=== PATIENT | female | born 1960 | race Caucasian/White ===

== ENCOUNTER 2017-12-27 17:47 | Observation (INO) ==
[2017-12-27 17:53] LABS: ABG Base Excess 0 mEq/L (-2 to 3); ABG HCO3 26 mEq/L (21-27); ABG Oxygen Saturation 94 % (95-98); ABG PCO2 46 mmHg (35-45); ABG PH 7.36 pH Units (7.32-7.45); ABG PO2 75 mmHg (85-104); ABG TCO2 28 mEq/L (20-26)
--- NOTE | 2017-12-27 17:56 | Emergency Department Note ---
Disposition Clinical Impression: Altered mental status Qualifiers: Altered mental status type: unspecified Qualified Code(s): R41.82 - Altered mental status, unspecified Disposition: Still a Patient Condition: Good Forms: ED Satisfaction Letter General Adult HPI - General Stated complaint: XIMENA Time Seen by Provider: 12/27/17 17:51 Source: family Mode of arrival: private vehicle Limitations: altered mental status Nursing Notes Reviewed: Yes Vital Signs Reviewed: Yes - History of Present Illness HPI Narrative: Patient is a 57-year-old female with a past psychiatric history who has been off her medication for several years and recently restarted some medication approximately 2 days ago under the care of "Rakesh Julian". Patient's states that patient has anxiety, depression, bipolar, and psychosis. Patient's states that he thinks she is taking lorazepam, Wellbutrin, Depakote, Seroquel. Patient's also states that 2 days ago she tried to commit suicide by taking a bunch of pills, he does not know what pills she took, and she woke up from a nap and was angry that her attempt did not succeed. It was at this point that they went to see the new doctor. states that he does not think she has any other health problems, has had 3 C-sections a number of years ago, has been complaining of a headache in the front of her head for "a while", as well as some wheezing although he attributes that to their smoking habit. Patient denies alcohol or illicit drugs. Constitutional: Denies: fever, chills Cardiovascular: Denies: chest pain Respiratory: Reports: dyspnea Gastrointestinal: Reports: abdominal pain. Denies: nausea, vomiting, diarrhea, constipation Integumentary: Reports: rash (12 cm area around umbilicus that is slightly discolored and she states that it hurts) Neurological: Reports: headache (frontal, present for a while now) Psychiatric: Reports: anxiety, depression Physical Exam Exam was performed after pt returned from CT scan when she was A&Ox3 - General Limitations: no limitations General appearance: alert, in no apparent distress - Head Head exam: atraumatic, normocephalic - Eye Eye exam: Present: normal appearance, PERRL, EOMI. Absent: scleral icterus, conjunctival injection - ENT ENT exam: normal exam, normal oropharynx, mucous membranes moist - Neck Neck exam: Present: normal inspection, full ROM - Chest Chest inspection: Present: normal inspection, symmetric chest wall rise - Respiratory Respiratory exam: Present: wheezes (expiratory wheezes) - Cardiovascular Cardiovascular exam: Present: regular rate, normal rhythm - Abdominal Exam Abdominal exam: Present: soft, Non-Tender - Back Exam Back exam: Present: normal inspection, full ROM. Absent: tenderness - Neurological Exam Neurological exam: Present: alert, oriented X3, CN II-XII intact - Psychiatric Psychiatric exam: Present: normal affect, normal mood - Skin Skin exam: Present: warm, dry, intact Course Course Narrative: Pt presented unable to answer questions, states that she was "flopping around in the car unable to breath". Additionally, states that patient tried to commit suicide a few days earlier by taking "a bunch of pills." A full workup to include tox scren, salicylate, acetaminophen, CBC, CMP, ammonia, EKG, Head CT will be performed. - Reevaluation(s) Reevaluation #1: Patient returned from CT scan and is now a and O 3, stating that she feels much better, stating that she is ready to go home. When asked if she took her regular medication today she says that she must have because she feels okay. Initially when asked about what happened 2 days ago where she took "a bunch of pills" she states that she mostly just took ibuprofen, although she thinks she only took 2 of them. In the room right now patient denies suicidal or homicidal ideations, and denies auditory or visual hallucinations. But she seems guarded in her responses. Will consult 1A for evaluation. Time: 18:51 Vital Signs Temperature 97.8 F 12/27/17 18:09 Pulse Rate 85 12/27/17 18:09 Respiratory Rate 20 12/27/17 18:09 Blood Pressure 167/96 12/27/17 18:09 O2 Sat by Pulse Oximetry 97 12/27/17 18:09 Temperature 97.8 F 12/27/17 18:09 Pulse Rate 85 12/27/17 18:09 Respiratory Rate 20 12/27/17 18:09 Blood Pressure 167/96 12/27/17 18:09 O2 Sat by Pulse Oximetry 97 12/27/17 18:09 Oxygen Delivery Oxygen Delivery Room Air Medical Decision Making - [facility] Narrative Medical decision making narrative: Pt is still a patient and will be signed out to the night doctor - please see detailed disposition in Dr. Arguelles/Dr. Dela Cruz's note. - Medical Records Medical records reviewed: Yes I reviewed the patient's medical records. - Lab Data Lab results reviewed: Yes I reviewed the patient's lab results. Result diagrams: 12/27/17 17:52 12/27/17 17:52 Lab Results 12/27/17 12/27/17 12/27/17 Range/Units 17:49 17:52 17:52 WBC 18.7 H (4.3-11.1) K/mcL RBC 4.81 (3.82-4.97) M/mcL Hgb 15.0 (11.5-15.4) g/dL Hct 45.5 H (35.3-44.9) % MCV 94.6 (83.0-100.0) fL MCH 31.2 (28.0-33.3) pg MCHC 33.0 (31.6-35.5) g/dL RDW 14.2 (11.5-14.5) % Plt Count 383 (140-400) K/mcL MPV 10.8 (9.4-12.4) fL Immature Gran % 1.1 (0-4) % Seg Neutrophils % 69.0 % Lymphocytes % 22.9 % Monocytes % 4.5 % Eosinophils % 2.0 % Basophils % 0.5 % Neutrophils # 12.9 H (1.6-8.9) K/mcL Lymphocytes # 4.3 (0.6-4.6) K/mcL Monocytes # 0.8 (0.0-1.3) K/mcL Eosinophils # 0.4 (0.0-0.6) K/mcL Basophils # 0.1 (0.0-0.2) K/mcL PT (9.4-12.1) Seconds INR APTT (26.0-36.0) Seconds Sample Site R Brach ABG pH 7.36 (7.32-7.45) pH Units ABG pCO2 46 H (35-45) mmHg ABG pO2 75 L (85-104) mmHg ABG HCO3 26 (21-27) mEq/L ABG Total CO2 28 H (20-26) mEq/L ABG O2 Saturation 94 L (95-98) % ABG Base Excess 0 (-2 to 3) mEq/L Petey Test N/A O2 Delivery Device Room Air Inspired O2 21.0 (1-15=lpm [id number]=%) Sodium (136-145) mEq/L Potassium (3.5-5.1) mEq/L Chloride (98-107) mEq/L Carbon Dioxide (23-29) mEq/L BUN (6-20) mg/dL Creatinine (0.60-1.20) mg/dL Est GFR ( Amer) (> 60) Est GFR (Non-Af Amer) (> 60) BUN/Creatinine Ratio (6-26) Glucose (70-105) mg/dL Calculated Osmolality (280-300) Calcium (8.6-10.3) mg/dL Total Bilirubin (0.3-1.0) mg/dL Direct Bilirubin (0.0-0.2) mg/dL Indirect Bilirubin (0.0-1.2) mg/dL AST (13-39) Units/L ALT (7-52) Units/L Alkaline Phosphatase (34-104) Units/L Ammonia 33 (16-53) mcmol/L Troponin I (< 0.04) ng/mL Serum Total Protein (6.4-8.9) g/dL Albumin (3.5-5.7) g/dL Globulin (2.4-3.5) g/dL Albumin/Globulin Ratio (1.1-2.2) TSH (0.340-5.600) mcIU/mL Salicylates (15.0-30.0) mg/dL Acetaminophen (10-20) mcg/mL Ethyl Alcohol (Less than 10) mg/dL 12/27/17 12/27/17 Range/Units 17:52 17:52 WBC (4.3-11.1) K/mcL RBC (3.82-4.97) M/mcL Hgb (11.5-15.4) g/dL Hct (35.3-44.9) % MCV (83.0-100.0) fL MCH (28.0-33.3) pg MCHC (31.6-35.5) g/dL RDW (11.5-14.5) % Plt Count (140-400) K/mcL MPV (9.4-12.4) fL Immature Gran % (0-4) % Seg Neutrophils % % Lymphocytes % % Monocytes % % Eosinophils % % Basophils % % Neutrophils # (1.6-8.9) K/mcL Lymphocytes # (0.6-4.6) K/mcL Monocytes # (0.0-1.3) K/mcL Eosinophils # (0.0-0.6) K/mcL Basophils # (0.0-0.2) K/mcL PT 10.3 (9.4-12.1) Seconds INR 0.9 APTT 33.9 (26.0-36.0) Seconds Sample Site ABG pH (7.32-7.45) pH Units ABG pCO2 (35-45) mmHg ABG pO2 (85-104) mmHg ABG HCO3 (21-27) mEq/L ABG Total CO2 (20-26) mEq/L ABG O2 Saturation (95-98) % ABG Base Excess (-2 to 3) mEq/L Petey Test O2 Delivery Device Inspired O2 (1-15=lpm [id number]=%) Sodium 140 (136-145) mEq/L Potassium 4.3 (3.5-5.1) mEq/L Chloride 106 (98-107) mEq/L Carbon Dioxide 26 (23-29) mEq/L BUN 22 H (6-20) mg/dL Creatinine 1.12 (0.60-1.20) mg/dL Est GFR ( Amer) > 60 (> 60) Est GFR (Non-Af Amer) 50 L (> 60) BUN/Creatinine Ratio 20 (6-26) Glucose 125 H (70-105) mg/dL Calculated Osmolality 295 (280-300) Calcium 9.4 (8.6-10.3) mg/dL Total Bilirubin 0.3 (0.3-1.0) mg/dL Direct Bilirubin 0.0 (0.0-0.2) mg/dL Indirect Bilirubin 0.3 (0.0-1.2) mg/dL AST 25 (13-39) Units/L ALT 32 (7-52) Units/L Alkaline Phosphatase 193 H (34-104) Units/L Ammonia (16-53) mcmol/L Troponin I < 0.03 (< 0.04) ng/mL Serum Total Protein 7.2 (6.4-8.9) g/dL Albumin 3.8 (3.5-5.7) g/dL Globulin 3.4 (2.4-3.5) g/dL Albumin/Globulin Ratio 1.1 (1.1-2.2) TSH 1.663 (0.340-5.600) mcIU/mL Salicylates < 2.5 L (15.0-30.0) mg/dL Acetaminophen < 10 L (10-20) mcg/mL Ethyl Alcohol < 10 (Less than 10) mg/dL - EKG Data EKG #1 EKG attestation: Yes I reviewed and interpreted this EKG. EKG results narrative: HR 85, Rhythm sinus, axis normal. [place] 180, QRS 88, QT 378. No evidence of ST elevation or depression.
[2017-12-27 18:05] LABS: Basophils # 0.1 K/mcL (0.0-0.2); Basophils % 0.5 %; Eosinophils # 0.4 K/mcL (0.0-0.6); Hematocrit 45.5 % (35.3-44.9); Immature Granulocytes % 1.1 % (0-4); Lymphocytes # 4.3 K/mcL (0.6-4.6); Lymphocytes % 22.9 %; Mean Corpuscular Hemoglobin 31.2 pg (28.0-33.3); Mean Corpuscular Volume 94.6 fL (83.0-100.0); Mean Platelet Volume 10.8 fL (9.4-12.4); Monocytes # 0.8 K/mcL (0.0-1.3); Monocytes % 4.5 %; Neutrophils # 12.9 K/mcL (1.6-8.9); Platelet Count 383 K/mcL (140-400); Red Blood Count 4.81 M/mcL (3.82-4.97); Red Cell Distribution Width 14.2 % (11.5-14.5)
[2017-12-27 18:17] LABS: INR 0.9; Prothrombin Time 10.3 Seconds (9.4-12.1)
[2017-12-27 18:19] LABS: Activated Partial Thrombo Time 33.9 Seconds (26.0-36.0)
[2017-12-27 18:23] LABS: Alanine Aminotransferase 32 Units/L (7-52); Albumin 3.8 g/dL (3.5-5.7); Albumin/Globulin Ratio 1.1 (1.1-2.2); Alkaline Phosphatase 193 Units/L (34-104); Aspartate Amino Transferase 25 Units/L (13-39); BUN/Creatinine Ratio 20 (6-26); Bilirubin,Indirect 0.3 mg/dL (0.0-1.2); Bilirubin,Total 0.3 mg/dL (0.3-1.0); Blood Urea Nitrogen 22 mg/dL (6-20); Calcium 9.4 mg/dL (8.6-10.3); Carbon Dioxide 26 mEq/L (23-29); Chloride 106 mEq/L (98-107); Ethanol < 10 mg/dL (Less than 10); Globulin 3.4 g/dL (2.4-3.5); Glucose 125 mg/dL (70-105); Osmolality,Calculated 295 (280-300); Potassium 4.3 mEq/L (3.5-5.1); Sodium 140 mEq/L (136-145); Total Protein 7.2 g/dL (6.4-8.9); Troponin I < 0.03 ng/mL (< 0.04); eGFR For Non-African Americans 50 (> 60)
--- NOTE | 2017-12-27 18:28 | Emergency Department Note ---
Disposition Clinical Impression: Altered mental status Qualifiers: Altered mental status type: unspecified Qualified Code(s): R41.82 - Altered mental status, unspecified Disposition: Still a Patient Condition: Good General Adult HPI - General Chief complaint: ED Altered Mental Status Stated complaint: XIMENA Time Seen by Provider: 12/27/17 17:51 Source: family Mode of arrival: private vehicle Limitations: altered mental status - History of Present Illness Pain Scale: 5 - Related Data Home Medications Medication Instructions Recorded Confirmed Baclofen 20 mg PO Q6H 12/29/17 12/29/17 Divalproex Sodium [Depakote] 125 mg PO BID 12/29/17 12/29/17 Indomethacin 75 mg PO BID 12/29/17 12/29/17 LORazepam [Lorazepam] 2 mg PO TID PRN 12/29/17 12/29/17 Metoclopramide [Reglan] 10 mg PO QIDAC 12/29/17 12/29/17 RX: BuPROPion SR (12 HR) 100 mg PO BID 12/29/17 12/29/17 [Wellbutrin SR] RX: Diclofenac Potassium 50 mg PO TID 12/29/17 12/29/17 RX: Nitroglycerin [Nitrostat] 0.4 mg SL PRN PRN 12/29/17 12/29/17 RX: Omeprazole [PriLOSEC] 40 mg PO DAILY 12/29/17 12/29/17 RX: Quetiapine Fumarate [Seroquel] 25 mg PO TID 12/29/17 12/29/17 Allergies Allergy/AdvReac Type Severity Reaction Status Date / Time No Known Allergies Allergy Verified 12/29/17 09:31 Constitutional: Denies: fever, chills Cardiovascular: Denies: chest pain Respiratory: Reports: dyspnea Gastrointestinal: Reports: abdominal pain. Denies: nausea, vomiting, diarrhea, constipation Integumentary: Reports: rash (12 cm area around umbilicus that is slightly discolored and she states that it hurts) Neurological: Reports: headache (frontal, present for a while now) Psychiatric: Reports: anxiety, depression Past Medical History - Past Medical History Medical history: Reports: hypertension, seizures Psychiatric history: Reports: anxiety, bipolar, depression, schizophrenia - Social History Smoking Status: Current every day smoker Alcohol use: Reports: none Drug use: Reports: none Physical Exam - General Limitations: altered mental status General appearance: lethargic Course Vital Signs Temperature 97.8 F 12/27/17 18:09 Pulse Rate 85 12/27/17 18:09 Respiratory Rate 20 12/27/17 18:09 Blood Pressure 167/96 12/27/17 18:09 O2 Sat by Pulse Oximetry 97 12/27/17 18:09 Temperature 97.5 F L 12/28/17 09:00 Pulse Rate 73 12/28/17 09:00 Respiratory Rate 22 12/28/17 09:00 Blood Pressure 184/113 12/28/17 09:00 O2 Sat by Pulse Oximetry 96 12/28/17 09:00 Oxygen Delivery Oxygen Delivery Room Air Medical Decision Making - Lab Data Result diagrams: 12/29/17 05:55 12/29/17 05:55 Lab Results 12/27/17 12/27/17 12/27/17 Range/Units 17:49 17:52 17:52 WBC 18.7 H (4.3-11.1) K/mcL RBC 4.81 (3.82-4.97) M/mcL Hgb 15.0 (11.5-15.4) g/dL Hct 45.5 H (35.3-44.9) % MCV 94.6 (83.0-100.0) fL MCH 31.2 (28.0-33.3) pg MCHC 33.0 (31.6-35.5) g/dL RDW 14.2 (11.5-14.5) % Plt Count 383 (140-400) K/mcL MPV 10.8 (9.4-12.4) fL Immature Gran % 1.1 (0-4) % Seg Neutrophils % 69.0 % Lymphocytes % 22.9 % Monocytes % 4.5 % Eosinophils % 2.0 % Basophils % 0.5 % Neutrophils # 12.9 H (1.6-8.9) K/mcL Lymphocytes # 4.3 (0.6-4.6) K/mcL Monocytes # 0.8 (0.0-1.3) K/mcL Eosinophils # 0.4 (0.0-0.6) K/mcL Basophils # 0.1 (0.0-0.2) K/mcL PT (9.4-12.1) Seconds INR APTT (26.0-36.0) Seconds Sample Site R Brach ABG pH 7.36 (7.32-7.45) pH Units ABG pCO2 46 H (35-45) mmHg ABG pO2 75 L (85-104) mmHg ABG HCO3 26 (21-27) mEq/L ABG Total CO2 28 H (20-26) mEq/L ABG O2 Saturation 94 L (95-98) % ABG Base Excess 0 (-2 to 3) mEq/L Petey Test N/A O2 Delivery Device Room Air Inspired O2 21.0 (1-15=lpm [id number]=%) Sodium (136-145) mEq/L Potassium (3.5-5.1) mEq/L Chloride (98-107) mEq/L Carbon Dioxide (23-29) mEq/L BUN (6-20) mg/dL Creatinine (0.60-1.20) mg/dL Est GFR ( Amer) (> 60) Est GFR (Non-Af Amer) (> 60) BUN/Creatinine Ratio (6-26) Glucose (70-105) mg/dL Calculated Osmolality (280-300) Calcium (8.6-10.3) mg/dL Total Bilirubin (0.3-1.0) mg/dL Direct Bilirubin (0.0-0.2) mg/dL Indirect Bilirubin (0.0-1.2) mg/dL AST (13-39) Units/L ALT (7-52) Units/L Alkaline Phosphatase (34-104) Units/L Ammonia 33 (16-53) mcmol/L Troponin I (< 0.04) ng/mL Serum Total Protein (6.4-8.9) g/dL Albumin (3.5-5.7) g/dL Globulin (2.4-3.5) g/dL Albumin/Globulin Ratio (1.1-2.2) TSH (0.340-5.600) mcIU/mL Urine Color (Yellow) Urine Clarity (Clear) Urine pH (5.0-8.0) pH Units Ur Specific [place] (1.010-1.025) Urine Protein (Neg-Trace) mg/dL Urine Glucose (UA) (Normal) mg/dL Urine Ketones (Negative) mg/dL Urine Blood (Negative) Urine Nitrite (Negative) Urine Bilirubin (Negative) Urine Urobilinogen (Normal) mg/dL Ur Leukocyte Esterase (Negative) Ur Culture Indicated? (NO) Salicylates (15.0-30.0) mg/dL Urine Opiates Screen (Jplldw=247) ng/mL Acetaminophen (10-20) mcg/mL Ur Barbiturates Screen (Hcfzdv=782) ng/mL Ur Phencyclidine Scrn (Cutoff=25) ng/mL Ur Amphetamines Screen (Ucrdhx=6226) ng/mL U Benzodiazepines Scrn (Cmbmoc=485) ng/mL Urine Cocaine Screen (Cutoff= 300) ng/mL U Marijuana (THC) Screen (Cutoff = 50) ng/mL Ur Drug Screen Interp Ethyl Alcohol (Less than 10) mg/dL 12/27/17 12/27/17 12/27/17 Range/Units 17:52 17:52 19:35 WBC (4.3-11.1) K/mcL RBC (3.82-4.97) M/mcL Hgb (11.5-15.4) g/dL Hct (35.3-44.9) % MCV (83.0-100.0) fL MCH (28.0-33.3) pg MCHC (31.6-35.5) g/dL RDW (11.5-14.5) % Plt Count (140-400) K/mcL MPV (9.4-12.4) fL Immature Gran % (0-4) % Seg Neutrophils % % Lymphocytes % % Monocytes % % Eosinophils % % Basophils % % Neutrophils # (1.6-8.9) K/mcL Lymphocytes # (0.6-4.6) K/mcL Monocytes # (0.0-1.3) K/mcL Eosinophils # (0.0-0.6) K/mcL Basophils # (0.0-0.2) K/mcL PT 10.3 (9.4-12.1) Seconds INR 0.9 APTT 33.9 (26.0-36.0) Seconds Sample Site ABG pH (7.32-7.45) pH Units ABG pCO2 (35-45) mmHg ABG pO2 (85-104) mmHg ABG HCO3 (21-27) mEq/L ABG Total CO2 (20-26) mEq/L ABG O2 Saturation (95-98) % ABG Base Excess (-2 to 3) mEq/L Petey Test O2 Delivery Device Inspired O2 (1-15=lpm [id number]=%) Sodium 140 (136-145) mEq/L Potassium 4.3 (3.5-5.1) mEq/L Chloride 106 (98-107) mEq/L Carbon Dioxide 26 (23-29) mEq/L BUN 22 H (6-20) mg/dL Creatinine 1.12 (0.60-1.20) mg/dL Est GFR ( Amer) > 60 (> 60) Est GFR (Non-Af Amer) 50 L (> 60) BUN/Creatinine Ratio 20 (6-26) Glucose 125 H (70-105) mg/dL Calculated Osmolality 295 (280-300) Calcium 9.4 (8.6-10.3) mg/dL Total Bilirubin 0.3 (0.3-1.0) mg/dL Direct Bilirubin 0.0 (0.0-0.2) mg/dL Indirect Bilirubin 0.3 (0.0-1.2) mg/dL AST 25 (13-39) Units/L ALT 32 (7-52) Units/L Alkaline Phosphatase 193 H (34-104) Units/L Ammonia (16-53) mcmol/L Troponin I < 0.03 (< 0.04) ng/mL Serum Total Protein 7.2 (6.4-8.9) g/dL Albumin 3.8 (3.5-5.7) g/dL Globulin 3.4 (2.4-3.5) g/dL Albumin/Globulin Ratio 1.1 (1.1-2.2) TSH 1.663 (0.340-5.600) mcIU/mL Urine Color (Yellow) Urine Clarity (Clear) Urine pH (5.0-8.0) pH Units Ur Specific [place] (1.010-1.025) Urine Protein (Neg-Trace) mg/dL Urine Glucose (UA) (Normal) mg/dL Urine Ketones (Negative) mg/dL Urine Blood (Negative) Urine Nitrite (Negative) Urine Bilirubin (Negative) Urine Urobilinogen (Normal) mg/dL Ur Leukocyte Esterase (Negative) Ur Culture Indicated? (NO) Salicylates < 2.5 L (15.0-30.0) mg/dL Urine Opiates Screen Negative (Nwgfrj=602) ng/mL Acetaminophen < 10 L (10-20) mcg/mL Ur Barbiturates Screen Negative (Jjtvhb=824) ng/mL Ur Phencyclidine Scrn Negative (Cutoff=25) ng/mL Ur Amphetamines Screen Negative (Ijokyg=7450) ng/mL U Benzodiazepines Scrn Negative (Xkjzfs=207) ng/mL Urine Cocaine Screen Negative (Cutoff= 300) ng/mL U Marijuana (THC) Screen Negative (Cutoff = 50) ng/mL Ur Drug Screen Interp See Below Ethyl Alcohol < 10 (Less than 10) mg/dL 12/27/17 Range/Units 19:38 WBC (4.3-11.1) K/mcL RBC (3.82-4.97) M/mcL Hgb (11.5-15.4) g/dL Hct (35.3-44.9) % MCV (83.0-100.0) fL MCH (28.0-33.3) pg MCHC (31.6-35.5) g/dL RDW (11.5-14.5) % Plt Count (140-400) K/mcL MPV (9.4-12.4) fL Immature Gran % (0-4) % Seg Neutrophils % % Lymphocytes % % Monocytes % % Eosinophils % % Basophils % % Neutrophils # (1.6-8.9) K/mcL Lymphocytes # (0.6-4.6) K/mcL Monocytes # (0.0-1.3) K/mcL Eosinophils # (0.0-0.6) K/mcL Basophils # (0.0-0.2) K/mcL PT (9.4-12.1) Seconds INR APTT (26.0-36.0) Seconds Sample Site ABG pH (7.32-7.45) pH Units ABG pCO2 (35-45) mmHg ABG pO2 (85-104) mmHg ABG HCO3 (21-27) mEq/L ABG Total CO2 (20-26) mEq/L ABG O2 Saturation (95-98) % ABG Base Excess (-2 to 3) mEq/L Petey Test O2 Delivery Device Inspired O2 (1-15=lpm [id number]=%) Sodium (136-145) mEq/L Potassium (3.5-5.1) mEq/L Chloride (98-107) mEq/L Carbon Dioxide (23-29) mEq/L BUN (6-20) mg/dL Creatinine (0.60-1.20) mg/dL Est GFR ( Amer) (> 60) Est GFR (Non-Af Amer) (> 60) BUN/Creatinine Ratio (6-26) Glucose (70-105) mg/dL Calculated Osmolality (280-300) Calcium (8.6-10.3) mg/dL Total Bilirubin (0.3-1.0) mg/dL Direct Bilirubin (0.0-0.2) mg/dL Indirect Bilirubin (0.0-1.2) mg/dL AST (13-39) Units/L ALT (7-52) Units/L Alkaline Phosphatase (34-104) Units/L Ammonia (16-53) mcmol/L Troponin I (< 0.04) ng/mL Serum Total Protein (6.4-8.9) g/dL Albumin (3.5-5.7) g/dL Globulin (2.4-3.5) g/dL Albumin/Globulin Ratio (1.1-2.2) TSH (0.340-5.600) mcIU/mL Urine Color Yellow (Yellow) Urine Clarity Clear (Clear) Urine pH 6.0 (5.0-8.0) pH Units Ur Specific [place] 1.015 (1.010-1.025) Urine Protein Negative (Neg-Trace) mg/dL Urine Glucose (UA) Normal (Normal) mg/dL Urine Ketones Negative (Negative) mg/dL Urine Blood Negative (Negative) Urine Nitrite Negative (Negative) Urine Bilirubin Negative (Negative) Urine Urobilinogen Normal (Normal) mg/dL Ur Leukocyte Esterase Negative (Negative) Ur Culture Indicated? NO (NO) Salicylates (15.0-30.0) mg/dL Urine Opiates Screen (Ugcwjs=319) ng/mL Acetaminophen (10-20) mcg/mL Ur Barbiturates Screen (Szgzny=283) ng/mL Ur Phencyclidine Scrn (Cutoff=25) ng/mL Ur Amphetamines Screen (Fncwhx=8624) ng/mL U Benzodiazepines Scrn (Dyjsjs=403) ng/mL Urine Cocaine Screen (Cutoff= 300) ng/mL U Marijuana (THC) Screen (Cutoff = 50) ng/mL Ur Drug Screen Interp Ethyl Alcohol (Less than 10) mg/dL Attestation Statement - Attestation Attestation: I examined this patient and my medical decision-making was reviewed with the Resident Physician. I agree with the documented findings, disposition and robert tment plan as described except to the extent set forth below. Patient presents to the emergency Department with altered mental status. Staff states that she was poorly responsive in the passenger seat of the car. She was able to assist him getting out of her car and then collapsed to the ground. On arrival in the room patient is laying in the bed with her eyes closed. Her vitals are stable with a heart rate in 80s, and oxygen saturation 99% on room air. Breathing 50 times a minute. Her lungs are clear. The pupils are reactive when I open her eyes. Plan. We did use an ammonia capsule the patient is now awake and alert. States she just cannot think. Altered mental status workup. Patient admitted to a suicide attempt 2 days ago. Steward slip and 1A evaluation. Signed out to shift superintendent Chest X-Ray 12/27/17 17:53 IMPRESSION: No acute findings. D/ / 12/27/2017 18:47:54 Yasir Reyes MD / inocente Interpreting Provider: Yasir Reyes MD Head CT 12/27/17 17:53 IMPRESSION: Negative CT brain with no acute intracranial abnormality. D/ / Ame Wade MD / Ame Wade MD Interpreting Provider: Ame Wade MD
[2017-12-27 18:36] LABS: Thyroid Stimulating Hormone 1.663 mcIU/mL (0.340-5.600)
[2017-12-27 18:54] LABS: Acetaminophen < 10 mcg/mL (10-20); Salicylate < 2.5 mg/dL (15.0-30.0)
[2017-12-27 19:47] LABS: Bilirubin,Urine Negative (Negative); Blood,Urine Negative (Negative); Clarity,Urine Clear (Clear); Color,Urine Yellow (Yellow); Glucose,Urine (UA) Normal (Normal); Ketones,Urine Negative (Negative); Leukocyte Esterase,Urine Negative (Negative); Nitrite,Urine Negative (Negative); Protein,Urine Negative (Neg-Trace); Specific Gravity,Urine 1.015 (1.010-1.025); Urobilinogen,Urine Normal (Normal)
[2017-12-27 19:56] LABS: Amphetamine Screen,Urine Negative ng/mL (Cutoff=1000); Barbiturate Screen,Urine Negative ng/mL (Cutoff=200); Benzodiazepines Screen,Urine Negative ng/mL (Cutoff=200); Cannabinoid Screen,Urine Negative ng/mL (Cutoff = 50); Cocaine Screen,Urine Negative ng/mL (Cutoff= 300); Opiate Screen,Urine Negative ng/mL (Cutoff=300); Phencyclidine Screen,Urine Negative ng/mL (Cutoff=25)
--- NOTE | 2017-12-27 20:42 | Emergency Department Note ---
Disposition Clinical Impression: Altered mental status Qualifiers: Altered mental status type: unspecified Qualified Code(s): R41.82 - Altered mental status, unspecified Disposition: Still a Patient Condition: Good Referrals: NONE,PCP [Primary Care Provider] - Forms: ED Satisfaction Letter General Adult HPI - General Chief complaint: ED Altered Mental Status Stated complaint: XIMENA Time Seen by Provider: 12/27/17 17:51 Source: family Mode of arrival: private vehicle Limitations: no limitations - History of Present Illness Pain Scale: 5 Constitutional: Denies: fever, chills Cardiovascular: Denies: chest pain Respiratory: Reports: dyspnea Gastrointestinal: Reports: abdominal pain. Denies: nausea, vomiting, diarrhea, constipation Integumentary: Reports: rash (12 cm area around umbilicus that is slightly discolored and she states that it hurts) Neurological: Reports: headache (frontal, present for a while now) Psychiatric: Reports: anxiety, depression Past Medical History - Past Medical History Medical history: Reports: hypertension, seizures Psychiatric history: Reports: anxiety, bipolar, depression, schizophrenia - Social History Smoking Status: Current every day smoker Alcohol use: Reports: none Drug use: Reports: none Physical Exam - General Limitations: no limitations General appearance: alert, in no apparent distress Course Vital Signs Temperature 97.8 F 12/27/17 18:09 Pulse Rate 85 12/27/17 18:09 Respiratory Rate 20 12/27/17 18:09 Blood Pressure 167/96 12/27/17 18:09 O2 Sat by Pulse Oximetry 97 12/27/17 18:09 Temperature 97.8 F 12/27/17 18:09 Pulse Rate 85 12/27/17 18:09 Respiratory Rate 20 12/27/17 18:09 Blood Pressure 167/96 12/27/17 18:09 O2 Sat by Pulse Oximetry 97 12/27/17 18:09 Oxygen Delivery Oxygen Delivery Room Air Medical Decision Making - Lab Data Result diagrams: 12/27/17 17:52 12/27/17 17:52 Lab Results 12/27/17 12/27/17 12/27/17 Range/Units 17:49 17:52 17:52 WBC 18.7 H (4.3-11.1) K/mcL RBC 4.81 (3.82-4.97) M/mcL Hgb 15.0 (11.5-15.4) g/dL Hct 45.5 H (35.3-44.9) % MCV 94.6 (83.0-100.0) fL MCH 31.2 (28.0-33.3) pg MCHC 33.0 (31.6-35.5) g/dL RDW 14.2 (11.5-14.5) % Plt Count 383 (140-400) K/mcL MPV 10.8 (9.4-12.4) fL Immature Gran % 1.1 (0-4) % Seg Neutrophils % 69.0 % Lymphocytes % 22.9 % Monocytes % 4.5 % Eosinophils % 2.0 % Basophils % 0.5 % Neutrophils # 12.9 H (1.6-8.9) K/mcL Lymphocytes # 4.3 (0.6-4.6) K/mcL Monocytes # 0.8 (0.0-1.3) K/mcL Eosinophils # 0.4 (0.0-0.6) K/mcL Basophils # 0.1 (0.0-0.2) K/mcL PT (9.4-12.1) Seconds INR APTT (26.0-36.0) Seconds Sample Site R Brach ABG pH 7.36 (7.32-7.45) pH Units ABG pCO2 46 H (35-45) mmHg ABG pO2 75 L (85-104) mmHg ABG HCO3 26 (21-27) mEq/L ABG Total CO2 28 H (20-26) mEq/L ABG O2 Saturation 94 L (95-98) % ABG Base Excess 0 (-2 to 3) mEq/L Petey Test N/A O2 Delivery Device Room Air Inspired O2 21.0 (1-15=lpm [id number]=%) Sodium (136-145) mEq/L Potassium (3.5-5.1) mEq/L Chloride (98-107) mEq/L Carbon Dioxide (23-29) mEq/L BUN (6-20) mg/dL Creatinine (0.60-1.20) mg/dL Est GFR ( Amer) (> 60) Est GFR (Non-Af Amer) (> 60) BUN/Creatinine Ratio (6-26) Glucose (70-105) mg/dL Calculated Osmolality (280-300) Calcium (8.6-10.3) mg/dL Total Bilirubin (0.3-1.0) mg/dL Direct Bilirubin (0.0-0.2) mg/dL Indirect Bilirubin (0.0-1.2) mg/dL AST (13-39) Units/L ALT (7-52) Units/L Alkaline Phosphatase (34-104) Units/L Ammonia 33 (16-53) mcmol/L Troponin I (< 0.04) ng/mL Serum Total Protein (6.4-8.9) g/dL Albumin (3.5-5.7) g/dL Globulin (2.4-3.5) g/dL Albumin/Globulin Ratio (1.1-2.2) TSH (0.340-5.600) mcIU/mL Urine Color (Yellow) Urine Clarity (Clear) Urine pH (5.0-8.0) pH Units Ur Specific [place] (1.010-1.025) Urine Protein (Neg-Trace) mg/dL Urine Glucose (UA) (Normal) mg/dL Urine Ketones (Negative) mg/dL Urine Blood (Negative) Urine Nitrite (Negative) Urine Bilirubin (Negative) Urine Urobilinogen (Normal) mg/dL Ur Leukocyte Esterase (Negative) Ur Culture Indicated? (NO) Salicylates (15.0-30.0) mg/dL Acetaminophen (10-20) mcg/mL Ur Drug Screen Interp Ethyl Alcohol (Less than 10) mg/dL 12/27/17 12/27/17 12/27/17 Range/Units 17:52 17:52 19:35 WBC (4.3-11.1) K/mcL RBC (3.82-4.97) M/mcL Hgb (11.5-15.4) g/dL Hct (35.3-44.9) % MCV (83.0-100.0) fL MCH (28.0-33.3) pg MCHC (31.6-35.5) g/dL RDW (11.5-14.5) % Plt Count (140-400) K/mcL MPV (9.4-12.4) fL Immature Gran % (0-4) % Seg Neutrophils % % Lymphocytes % % Monocytes % % Eosinophils % % Basophils % % Neutrophils # (1.6-8.9) K/mcL Lymphocytes # (0.6-4.6) K/mcL Monocytes # (0.0-1.3) K/mcL Eosinophils # (0.0-0.6) K/mcL Basophils # (0.0-0.2) K/mcL PT 10.3 (9.4-12.1) Seconds INR 0.9 APTT 33.9 (26.0-36.0) Seconds Sample Site ABG pH (7.32-7.45) pH Units ABG pCO2 (35-45) mmHg ABG pO2 (85-104) mmHg ABG HCO3 (21-27) mEq/L ABG Total CO2 (20-26) mEq/L ABG O2 Saturation (95-98) % ABG Base Excess (-2 to 3) mEq/L Petey Test O2 Delivery Device Inspired O2 (1-15=lpm [id number]=%) Sodium 140 (136-145) mEq/L Potassium 4.3 (3.5-5.1) mEq/L Chloride 106 (98-107) mEq/L Carbon Dioxide 26 (23-29) mEq/L BUN 22 H (6-20) mg/dL Creatinine 1.12 (0.60-1.20) mg/dL Est GFR ( Amer) > 60 (> 60) Est GFR (Non-Af Amer) 50 L (> 60) BUN/Creatinine Ratio 20 (6-26) Glucose 125 H (70-105) mg/dL Calculated Osmolality 295 (280-300) Calcium 9.4 (8.6-10.3) mg/dL Total Bilirubin 0.3 (0.3-1.0) mg/dL Direct Bilirubin 0.0 (0.0-0.2) mg/dL Indirect Bilirubin 0.3 (0.0-1.2) mg/dL AST 25 (13-39) Units/L ALT 32 (7-52) Units/L Alkaline Phosphatase 193 H (34-104) Units/L Ammonia (16-53) mcmol/L Troponin I < 0.03 (< 0.04) ng/mL Serum Total Protein 7.2 (6.4-8.9) g/dL Albumin 3.8 (3.5-5.7) g/dL Globulin 3.4 (2.4-3.5) g/dL Albumin/Globulin Ratio 1.1 (1.1-2.2) TSH 1.663 (0.340-5.600) mcIU/mL Urine Color (Yellow) Urine Clarity (Clear) Urine pH (5.0-8.0) pH Units Ur Specific [place] (1.010-1.025) Urine Protein (Neg-Trace) mg/dL Urine Glucose (UA) (Normal) mg/dL Urine Ketones (Negative) mg/dL Urine Blood (Negative) Urine Nitrite (Negative) Urine Bilirubin (Negative) Urine Urobilinogen (Normal) mg/dL Ur Leukocyte Esterase (Negative) Ur Culture Indicated? (NO) Salicylates < 2.5 L (15.0-30.0) mg/dL Acetaminophen < 10 L (10-20) mcg/mL Ur Drug Screen Interp See Below Ethyl Alcohol < 10 (Less than 10) mg/dL 12/27/17 Range/Units 19:38 WBC (4.3-11.1) K/mcL RBC (3.82-4.97) M/mcL Hgb (11.5-15.4) g/dL Hct (35.3-44.9) % MCV (83.0-100.0) fL MCH (28.0-33.3) pg MCHC (31.6-35.5) g/dL RDW (11.5-14.5) % Plt Count (140-400) K/mcL MPV (9.4-12.4) fL Immature Gran % (0-4) % Seg Neutrophils % % Lymphocytes % % Monocytes % % Eosinophils % % Basophils % % Neutrophils # (1.6-8.9) K/mcL Lymphocytes # (0.6-4.6) K/mcL Monocytes # (0.0-1.3) K/mcL Eosinophils # (0.0-0.6) K/mcL Basophils # (0.0-0.2) K/mcL PT (9.4-12.1) Seconds INR APTT (26.0-36.0) Seconds Sample Site ABG pH (7.32-7.45) pH Units ABG pCO2 (35-45) mmHg ABG pO2 (85-104) mmHg ABG HCO3 (21-27) mEq/L ABG Total CO2 (20-26) mEq/L ABG O2 Saturation (95-98) % ABG Base Excess (-2 to 3) mEq/L Petey Test O2 Delivery Device Inspired O2 (1-15=lpm [id number]=%) Sodium (136-145) mEq/L Potassium (3.5-5.1) mEq/L Chloride (98-107) mEq/L Carbon Dioxide (23-29) mEq/L BUN (6-20) mg/dL Creatinine (0.60-1.20) mg/dL Est GFR ( Amer) (> 60) Est GFR (Non-Af Amer) (> 60) BUN/Creatinine Ratio (6-26) Glucose (70-105) mg/dL Calculated Osmolality (280-300) Calcium (8.6-10.3) mg/dL Total Bilirubin (0.3-1.0) mg/dL Direct Bilirubin (0.0-0.2) mg/dL Indirect Bilirubin (0.0-1.2) mg/dL AST (13-39) Units/L ALT (7-52) Units/L Alkaline Phosphatase (34-104) Units/L Ammonia (16-53) mcmol/L Troponin I (< 0.04) ng/mL Serum Total Protein (6.4-8.9) g/dL Albumin (3.5-5.7) g/dL Globulin (2.4-3.5) g/dL Albumin/Globulin Ratio (1.1-2.2) TSH (0.340-5.600) mcIU/mL Urine Color Yellow (Yellow) Urine Clarity Clear (Clear) Urine pH 6.0 (5.0-8.0) pH Units Ur Specific [place] 1.015 (1.010-1.025) Urine Protein Negative (Neg-Trace) mg/dL Urine Glucose (UA) Normal (Normal) mg/dL Urine Ketones Negative (Negative) mg/dL Urine Blood Negative (Negative) Urine Nitrite Negative (Negative) Urine Bilirubin Negative (Negative) Urine Urobilinogen Normal (Normal) mg/dL Ur Leukocyte Esterase Negative (Negative) Ur Culture Indicated? NO (NO) Salicylates (15.0-30.0) mg/dL Acetaminophen (10-20) mcg/mL Ur Drug Screen Interp Ethyl Alcohol (Less than 10) mg/dL Attestation Statement - Attestation Attestation: Patient taken over at sign out from Dr. See.. Patient initially presented for altered mental status and dyspnea. She complained of not being able to breathe while she was in the car. They state that she started to become lightheaded and was about to pass out. The patient in the emergency department was not found to be in any significant respiratory distress. Her vital signs were normal. The patient had clear lung sounds. She did undergo evaluation for altered mental status. On my evaluation of the patient. She states that she is back to baseline. She would like to go home. She did tell the resident that she took prescription medications 2 days ago in attempts to commit suicide. She states she has been under an unusual amount of stress. They have not been able to afford food nor other prescription medications. Her daughter several years ago and she is having difficulty coping with this. The is at bedside. The did have a gun on him when presenting to the emergency department and was told by squad he needed to leave this in his car. He has been approachable and conversational without agitation or distress while in the e mergency department. His states that she would like to leave she does not want to be here, we are not here to help her, she would rather go home. She cannot guarantee her safety with home. Patient will undergo further evaluation by her mental health team. Patient will likely require admission.
[2017-12-27] MEDS ORDERED: Ziprasidone 20 MG CAPSULE PO STA (23:03)
[2017-12-27] MEDS ORDERED: Mag Hydrox/Al Hydrox/Simeth 30 ML UDC PO PRN (23:28)
[2017-12-27] MEDS ORDERED: *HR* LORazepam 2 MG/ML VIAL IM PRN (23:28)
[2017-12-27] MEDS ORDERED: MOM Conc 10 ML UD.LIQ PO PRN (23:28)
[2017-12-27] MEDS ORDERED: Haloperidol Lactate 5 MG/ML VIAL IM PRN (23:28)
[2017-12-27] MEDS ORDERED: Acetaminophen 325 MG TABLET PO PRN (23:28)
[2017-12-27] MEDS ORDERED: hydrOXYzine pamoate 25 MG CAPSULE PO PRN (23:28)
[2017-12-27] MEDS ORDERED: *HR* LORazepam 1 MG TABLET PO PRN (23:28)
[2017-12-28 09:53] VITALS: BP 184/113
--- NOTE | 2017-12-28 10:56 | Discharge Summary ---
Date of Encounter: 12/28/17 Time of Encounter: 10:30 History of Present Illness Chief complaint: Altered mental status Admitted From: Emergency Dept History of Present Illness: Ms. Patel is a 57 year old female presented to the emergency room with altered mental status and lethargic and unresponsive and workup was positive for leukocytosis and hypertension. Patient was reported medically clear by staff and transferred to 1 a after which time I found out that she has a history of epilepsy and I did not believe that she was medically stable and the hospitalist was contacted to clarify this situation and I am requesting to be reevaluated in the ER or admitted to medical floor for further evaluation since she is not medically stable. Past Med Surg Social Fam HX - Past Medical History Medical history: hypertension, seizures - Past Psychiatric History Psychiatric history: Reports: no psych history - Social History Smoking Status: Current every day smoker Alcohol use: none Drug use: none Medications - Discharge Medications Allergy/AdvReac Type Severity Reaction Status Date / Time No Known Allergies Allergy Verified 12/27/17 23:28 Review of Systems Psychiatric: Reports: confusion Exam - HEENT Head exam IM: Present: atraumatic Eye exam IM: Present: EOMI, normal appearance, PERRL ENT exam IM: Present: normal exam - Neurological Neurological exam: Present: CN II-XII intact - Respiratory Respiratory exam IM: Present: CTAB - GI/Abdominal GI/Abdominal exam IM: Present: normal bowel sounds, soft. Absent: tenderness - Extremities Extremities exam IM: Present: full ROM - Skin Skin exam IM: Present: dry, warm - Constitutional Vitals: Temp Pulse Resp BP Pulse Ox 97.5 F L 73 22 184/113 96 12/28/17 09:00 12/28/17 09:00 12/28/17 09:00 12/28/17 09:00 12/28/17 09:00 General appearance: age & developmentally appropriate, well-nourished, unkempt, disheveled, inappropriate, obese - Musculoskeletal Gait: normal Station: relaxed Strength & Tone: normal for patient - Psychiatric Patient Orientation: Yes Person, Yes Time, Yes Place Level of alertness: Alert Behavior: calm, cooperative, anxious Psychomotor activity: Normal Eye Contact: Maintains Eye Contact Mood Description: Euthymic/stable, Anxious Affect description: congruent with mood, euthymic, inappropriate to situation Speech Volume: Normal Speech pattern: spontaneous, disorganized, limited, impoverished Language & Vocabulary: consistent with education Thought Process: Linear, Goal Oriented, Disorganized, [place] Thought Content: No Suicidal ideation, No Homicidal ideation, No Overt delusions Perceptual Disturbances: No Auditory hallucinations, No Visual hallucinations Attention Span Ability: Capable of Focused Attention Memory Description: Grossly Intact Patient Reliability: Questionable Historian Fund of knowledge: Yes abstraction ability, Yes average, Yes aware of current events Intelligence Estimate: Average Judgment: Limited Insight: Partial Results - Drug Levels and Toxicology Drug Levels and Toxicology: Drug Levels and Toxicity 12/27/17 12/27/17 17:52 19:35 Urine Opiates Screen Negative Acetaminophen < 10 L Ur Barbiturates Screen Negative Ur Phencyclidine Scrn Negative Ur Amphetamines Screen Negative U Benzodiazepines Scrn Negative Urine Cocaine Screen Negative U Marijuana (THC) Screen Negative Ethyl Alcohol < 10 - Labs Labs: Laboratory Last Values WBC 18.7 K/mcL (4.3-11.1) H 12/27/17 17:52 RBC 4.81 M/mcL (3.82-4.97) 12/27/17 17:52 Hgb 15.0 g/dL (11.5-15.4) 12/27/17 17:52 Hct 45.5 % (35.3-44.9) H 12/27/17 17:52 MCV 94.6 fL (83.0-100.0) 12/27/17 17:52 MCH 31.2 pg (28.0-33.3) 12/27/17 17:52 MCHC 33.0 g/dL (31.6-35.5) 12/27/17 17:52 RDW 14.2 % (11.5-14.5) 12/27/17 17:52 Plt Count 383 K/mcL (140-400) 12/27/17 17:52 MPV 10.8 fL (9.4-12.4) 12/27/17 17:52 Immature Gran % 1.1 % (0-4) 12/27/17 17:52 Seg Neutrophils % 69.0 % 12/27/17 17:52 Lymphocytes % 22.9 % 12/27/17 17:52 Monocytes % 4.5 % 12/27/17 17:52 Eosinophils % 2.0 % 12/27/17 17:52 Basophils % 0.5 % 12/27/17 17:52 Neutrophils # 12.9 K/mcL (1.6-8.9) H 12/27/17 17:52 Lymphocytes # 4.3 K/mcL (0.6-4.6) 12/27/17 17:52 Monocytes # 0.8 K/mcL (0.0-1.3) 12/27/17 17:52 Eosinophils # 0.4 K/mcL (0.0-0.6) 12/27/17 17:52 Basophils # 0.1 K/mcL (0.0-0.2) 12/27/17 17:52 PT 10.3 Seconds (9.4-12.1) 12/27/17 17:52 INR 0.9 12/27/17 17:52 APTT 33.9 Seconds (26.0-36.0) 12/27/17 17:52 Sample Site R Brach 12/27/17 17:49 ABG pH 7.36 pH Units (7.32-7.45) 12/27/17 17:49 ABG pCO2 46 mmHg (35-45) H 12/27/17 17:49 ABG pO2 75 mmHg (85-104) L 12/27/17 17:49 ABG HCO3 26 mEq/L (21-27) 12/27/17 17:49 ABG Total CO2 28 mEq/L (20-26) H 12/27/17 17:49 ABG O2 Saturation 94 % (95-98) L 12/27/17 17:49 ABG Base Excess 0 mEq/L (-2 to 3) 12/27/17 17:49 Petey Test N/A 12/27/17 17:49 O2 Delivery Device Room Air 12/27/17 17:49 Inspired O2 21.0 (1-15=lpm [id number]=%) 12/27/17 17:49 Sodium 140 mEq/L (136-145) 12/27/17 17:52 Potassium 4.3 mEq/L (3.5-5.1) 12/27/17 17:52 Chloride 106 mEq/L (98-107) 12/27/17 17:52 Carbon Dioxide 26 mEq/L (23-29) 12/27/17 17:52 BUN 22 mg/dL (6-20) H 12/27/17 17:52 Creatinine 1.12 mg/dL (0.60-1.20) 12/27/17 17:52 Est GFR ( Amer) > 60 (> 60) 12/27/17 17:52 Est GFR (Non-Af Amer) 50 (> 60) L 12/27/17 17:52 BUN/Creatinine Ratio 20 (6-26) 12/27/17 17:52 Glucose 125 mg/dL (70-105) H 12/27/17 17:52 Calculated Osmolality 295 (280-300) 12/27/17 17:52 Calcium 9.4 mg/dL (8.6-10.3) 12/27/17 17:52 Total Bilirubin 0.3 mg/dL (0.3-1.0) 12/27/17 17:52 Direct Bilirubin 0.0 mg/dL (0.0-0.2) 12/27/17 17:52 Indirect Bilirubin 0.3 mg/dL (0.0-1.2) 12/27/17 17:52 AST 25 Units/L (13-39) 12/27/17 17:52 ALT 32 Units/L (7-52) 12/27/17 17:52 Alkaline Phosphatase 193 Units/L (34-104) H 12/27/17 17:52 Ammonia 33 mcmol/L (16-53) 12/27/17 17:52 Troponin I < 0.03 ng/mL (< 0.04) 12/27/17 17:52 Serum Total Protein 7.2 g/dL (6.4-8.9) 12/27/17 17:52 Albumin 3.8 g/dL (3.5-5.7) 12/27/17 17:52 Globulin 3.4 g/dL (2.4-3.5) 12/27/17 17:52 Albumin/Globulin Ratio 1.1 (1.1-2.2) 12/27/17 17:52 TSH 1.663 mcIU/mL (0.340-5.600) 12/27/17 17:52 Urine Color Yellow (Yellow) 12/27/17 19:38 Urine Clarity Clear (Clear) 12/27/17 19:38 Urine pH 6.0 pH Units (5.0-8.0) 12/27/17 19:38 Ur Specific [place] 1.015 (1.010-1.025) 12/27/17 19:38 Urine Protein Negative mg/dL (Neg-Trace) 12/27/17 19:38 Urine Glucose (UA) Normal mg/dL (Normal) 12/27/17 19:38 Urine Ketones Negative mg/dL (Negative) 12/27/17 19:38 Urine Blood Negative (Negative) 12/27/17 19:38 Urine Nitrite Negative (Negative) 12/27/17 19:38 Urine Bilirubin Negative (Negative) 12/27/17 19:38 Urine Urobilinogen Normal mg/dL (Normal) 12/27/17 19:38 Ur Leukocyte Esterase Negative (Negative) 12/27/17 19:38 Ur Culture Indicated? NO (NO) 12/27/17 19:38 Salicylates < 2.5 mg/dL (15.0-30.0) L 12/27/17 17:52 Urine Opiates Screen Negative ng/mL ([place]=595) 12/27/17 19:35 Acetaminophen < 10 mcg/mL (10-20) L 12/27/17 17:52 Ur Barbiturates Screen Negative ng/mL (Wcsvkb=315) 12/27/17 19:35 Ur Phencyclidine Scrn Negative ng/mL (Cutoff=25) 12/27/17 19:35 Ur Amphetamines Screen Negative ng/mL (Ubopxf=9888) 12/27/17 19:35 U Benzodiazepines Scrn Negative ng/mL (Nqzcsp=479) 12/27/17 19:35 Urine Cocaine Screen Negative ng/mL (Cutoff= 300) 12/27/17 19:35 U Marijuana (THC) Screen Negative ng/mL (Cutoff = 50) 12/27/17 19:35 Ur Drug Screen Interp See Below 12/27/17 19:35 Ethyl Alcohol < 10 mg/dL (Less than 10) 12/27/17 17:52 - Impressions Impressions Chest X-Ray 12/27/17 17:53 IMPRESSION: No acute findings. D/ / 12/27/2017 18:47:54 Yasir Reyes MD / inocente Interpreting Provider: Yasir Reyes MD Head CT 12/27/17 17:53 IMPRESSION: Negative CT brain with no acute intracranial abnormality. D/ / Ame Wade MD / Ame Wade MD Interpreting Provider: Ame Wade MD Diagnosis - Discharge Diagnosis (1) Altered mental status Status: Acute Qualifiers: Altered mental status type: unspecified Qualified Code(s): R41.82 - Altered mental status, unspecified Assessment and Plan - Patient/Caregiver Discharge Instructions Activity: resume usual activities as tolerated Diet: regular diet - Follow up Plan Follow up with: NONE,PCP [Primary Care Provider] - Functional capacity at discharge: independent ambulation Overall status at discharge: Stable Disposition: Admitted As Inpatient Provider Date of admission: 12/27/17 23:15 Primary care physician: PCP NONE Consults: 12/28/17 09:11 Consult to Hospitalist [CONS] Routine Consulting Provider: Hospitalist Josegeshanice Reason for Consult: Pt came through the ED unresponsive, with a WBC 18.7, B/P increasing since admission. Pt current manual B/P is 182/110, pt is a poor historian. Time Notified: 09:13 Call Completed: Yes Discharging clinician: Ritchie Arredondo Hospital Course Hospital course: Ms. Patel is a 57 year old female admitted from the ER for change in mental status. Patient medical clearance was not complete were adequate after admission found to have elevated white count and elevated blood pressure seen by the hospitalist who recommended moving patient to medical service for further evaluation and management. There was no criteria at this time for psychiatric admission or hospitalization using available information at this time. Patient will be discharged to the medical service for further medical evaluation and stabilization she is discharged in stable condition. - Time Spent with Patient Total time spent providing and/or coordinating discharge services: Less than 30 minutes Quality - Multiple Antipsychotics Patient discharged on 2 or more antipsychotic medications: No
--- NOTE | 2017-12-28 13:57 | Internal Med History&Physical ---
Date of Encounter: 12/28/17 Time of Encounter: 01:00 Internal Medicine - H&P: HPI History of present illness: Ms. Patel is a 57 year old female Past Med Surg Social Fam HX - Past Medical History Medical history: hypertension, seizures Psychiatric history: no psych history - Social History Smoking Status: Current every day smoker Alcohol use: none Drug use: none Internal Medicine - H&P: Meds Allergy/AdvReac Type Severity Reaction Status Date / Time No Known Allergies Allergy Verified 12/27/17 23:28 All Systems PM: A 10-system review of systems was performed and is negative for pertinent findings except as documented above in the HPI. - Constitutional Vitals: Temp Pulse Resp BP Pulse Ox 97.5 F L 73 22 184/113 96 12/28/17 09:00 12/28/17 09:00 12/28/17 09:00 12/28/17 09:00 12/28/17 09:00 Internal Med - H&P Results - Labs CBC & Chem 7: 12/27/17 17:52 12/27/17 17:52 Labs: Short CBC 12/27/17 Range/Units 17:52 WBC 18.7 H (4.3-11.1) K/mcL Hgb 15.0 (11.5-15.4) g/dL Hct 45.5 H (35.3-44.9) % Plt Count 383 (140-400) K/mcL Neutrophils # 12.9 H (1.6-8.9) K/mcL BMP 12/27/17 17:52 Sodium 140 Potassium 4.3 Chloride 106 Carbon Dioxide 26 BUN 22 H Creatinine 1.12 Glucose 125 H Calcium 9.4 Cardiac Enzymes 12/27/17 Range/Units 17:52 Troponin I < 0.03 (< 0.04) ng/mL Liver Function 12/27/17 Range/Units 17:52 Total Bilirubin 0.3 (0.3-1.0) mg/dL Direct Bilirubin 0.0 (0.0-0.2) mg/dL AST 25 (13-39) Units/L ALT 32 (7-52) Units/L Alkaline Phosphatase 193 H (34-104) Units/L Albumin 3.8 (3.5-5.7) g/dL Urine 12/27/17 Range/Units 19:38 Urine Color Yellow (Yellow) Urine Clarity Clear (Clear) Urine pH 6.0 (5.0-8.0) pH Units Ur Specific [place] 1.015 (1.010-1.025) Urine Protein Negative (Neg-Trace) mg/dL Urine Glucose (UA) Normal (Normal) mg/dL - ABG Interpretation ABG results: 12/27/17 17:49 ABG pH 7.36 ABG pCO2 46 H ABG pO2 75 L ABG HCO3 26 ABG Total CO2 28 H ABG O2 Saturation 94 L ABG Base Excess 0 - Impressions ITS Impressions Chest X-Ray 12/27/17 17:53 IMPRESSION: No acute findings. D/ / 12/27/2017 18:47:54 Yasir Reyes MD / inocente Interpreting Provider: Yasir Reyes MD Head CT 12/27/17 17:53 IMPRESSION: Negative CT brain with no acute intracranial abnormality. D/ / Ame Wade MD / Ame Wade MD Interpreting Provider: Ame Wade MD - Time Spent With Patient Total time spent is greater than 50% in coordination of care (as documented) at patient's floor/unit and/or counseling patient: - VTE Reasons for not Prescribing Prophylaxis: Treatment not Indicated - Low risk for VTE
[2017-12-28] MEDS ORDERED: Naloxone 0.4 MG/ML INJ IVP PRN (15:30)
[2017-12-28 16:37] LABS: Prothrombin Time 11.1 Seconds (9.4-12.1)
[2017-12-28 16:40] LABS: Activated Partial Thrombo Time 34.2 Seconds (26.0-36.0)
[2017-12-29 06:13] LABS: Basophils # 0.1 K/mcL (0.0-0.2); Basophils % 0.6 %; Eosinophils # 0.1 K/mcL (0.0-0.6); Eosinophils % 0.8 %; Hematocrit 46.4 % (35.3-44.9); Hemoglobin 14.8 g/dL (11.5-15.4); Lymphocytes # 3.8 K/mcL (0.6-4.6); Lymphocytes % 25.5 %; Mean Corpuscular HGB Conc 31.9 g/dL (31.6-35.5); Mean Corpuscular Volume 93.9 fL (83.0-100.0); Mean Platelet Volume 10.7 fL (9.4-12.4); Monocytes # 0.7 K/mcL (0.0-1.3); Monocytes % 4.5 %; Platelet Count 433 K/mcL (140-400); Red Blood Count 4.94 M/mcL (3.82-4.97); Red Cell Distribution Width 14.6 % (11.5-14.5); Segmented Neutrophils % 67.6 %
[2017-12-29 06:31] LABS: Alanine Aminotransferase 24 Units/L (7-52); Albumin 3.8 g/dL (3.5-5.7); Albumin/Globulin Ratio 1.1 (1.1-2.2); Alkaline Phosphatase 175 Units/L (34-104); Aspartate Amino Transferase 19 Units/L (13-39); BUN/Creatinine Ratio 18 (6-26); Bilirubin,Total 0.4 mg/dL (0.3-1.0); Blood Urea Nitrogen 18 mg/dL (6-20); Calcium 9.8 mg/dL (8.6-10.3); Carbon Dioxide 24 mEq/L (23-29); Chloride 104 mEq/L (98-107); Globulin 3.4 g/dL (2.4-3.5); Glucose 135 mg/dL (70-105); Osmolality,Calculated 288 (280-300); Phosphorous 3.4 mg/dL (2.7-4.5); Sodium 137 mEq/L (136-145); Total Protein 7.2 g/dL (6.4-8.9); eGFR For Non-African Americans 58 (> 60)
--- NOTE | 2017-12-31 22:05 | Electrocardiograph Report ---
[address] [place], [place] [address] Test Date: 2017-12-27 Pat Name: Debo Patel Department: [id number] Room: [facility] Gender: F Overlock Hemmer: : 1960 Requested By: Ivon See Order Number: [id number] Reading MD: Yuan Krueger Measurements Intervals [place] Rate: 85 P: 12 CA: 180 QRS: 4 QRSD: 88 T: 67 QT: 378 QTc: 450 Interpretive Statements Normal sinus rhythm Electronically Signed On 12-31-2017 22:04:19 EDT by Yuan Krueger
== END 2017-12-28 15:25 | disposition other institution (70) ==
LOC: 1ANU 17:47 → EMEROOARM 17:47 → 1ANU 12-28 01:18
PROVIDERS: ADMIT Psychiatry & Neurology Psychiatry; ATTEND Psychiatry & Neurology Psychiatry

== ENCOUNTER 2017-12-28 13:21 | Inpatient (IN) ==
[2017-12-28] MEDS ORDERED: Naloxone 0.4 MG/ML INJ IVP PRN (16:07)
--- NOTE | 2017-12-28 16:07 | Internal Med History&Physical ---
Date of Encounter: 12/28/17 Time of Encounter: 01:00 Internal Medicine - H&P: HPI Chief complaint: Uncontrolled blood pressure History of present illness: Patient is a 57-year-old female with a past psychiatric history of anxiety, depression, bipolar, and psychosis who presented with suicidal attempt and she was admitted tp psychiatry unit. During her stay her blood pressure was elevated , she has no history of HTN and staff did not feel comfortable keeping her. They were also concerned about elevated WBCs. At bed side the patient refused to answer questions and was verbally abusive. She was transferred to medical floor for further evaluation. Past Med Surg Social Fam HX - Past Medical History Medical history: hypertension, seizures Psychiatric history: no psych history - Social History Smoking Status: Current every day smoker Alcohol use: none Drug use: none Internal Medicine - H&P: Meds Baclofen 20 mg PO Q6H 12/29/17 [History] BuPROPion SR (12 HR) [Wellbutrin SR] 100 mg PO BID 12/29/17 [History] Diclofenac Potassium 50 mg PO TID 12/29/17 [History] Divalproex Sodium [Depakote] 125 mg PO BID 12/29/17 [History] Indomethacin 75 mg PO BID 12/29/17 [History] LORazepam [Lorazepam] 2 mg PO TID PRN 12/29/17 [History] Metoclopramide [Reglan] 10 mg PO QIDAC 12/29/17 [History] Nitroglycerin [Nitrostat] 0.4 mg SL PRN PRN 12/29/17 [History] Omeprazole [PriLOSEC] 40 mg PO DAILY 12/29/17 [History] Quetiapine Fumarate [Seroquel] 25 mg PO TID 12/29/17 [History] Allergy/AdvReac Type Severity Reaction Status Date / Time No Known Allergies Allergy Verified 12/29/17 09:31 ROS unobtainable: due to mental status All Systems PM: A 10-system review of systems was performed and is negative for pertinent findings except as documented above in the HPI. - Constitutional Vitals: Temp Pulse Resp BP Pulse Ox 98.3 F 73 18 159/93 98 12/28/17 15:58 12/28/17 15:58 12/28/17 15:58 12/28/17 15:58 12/28/17 15:58 Exam: The patient refused PE Internal Med - H&P Results - Labs CBC & Chem 7: 01/03/18 05:58 01/03/18 05:58 - Assessment and plan (1) Elevated white blood cell count Current Visit: Yes Status: Acute Assessment and plan: The patient has no reported fever. She refused to provide medical history and refused PE We will obtain CXR , UA and blood culture, no clear indication for ABs at this point. Qualifiers: Leukocytosis type: other Qualified Code(s): D72.828 - Other elevated white blood cell count (2) Blood pressure elevated without history of HTN Current Visit: Yes Status: Acute Assessment and plan: The patient blood pressure constantely above SBP above 160 and DBP above 100, she is asymptomatic, we will start a combination of ACEIs and diuretics as well as PRN IV antihypertensive. (3) Attempted suicide Current Visit: Yes Status: Acute Assessment and plan: Consult psychiatry (4) Anxiety Current Visit: Yes Status: Acute (5) Bipolar disorder Current Visit: Yes Status: Chronic Assessment and plan: Patient was previously on Seroquel for bipolar disorder. However patient became hypotensive and somnolent after administration. Switched to Haldol per psych. Qualifiers: Active/Remission status: remission status unspecified Qualified Code(s): F31.9 - Bipolar disorder, unspecified (6) DVT prophylaxis Current Visit: Yes Status: Acute - Time Spent With Patient Total time spent is greater than 50% in coordination of care (as documented) at patient's floor/unit and/or counseling patient:
[2017-12-28] MEDS ORDERED: *HR* LORazepam 2 MG/ML VIAL IVP ONE (21:01)
[2017-12-28 22:13] LABS: Basophils # 0.1 K/mcL (0.0-0.2); Basophils % 0.5 %; Eosinophils # 0.1 K/mcL (0.0-0.6); Eosinophils % 0.9 %; Hematocrit 45.4 % (35.3-44.9); Hemoglobin 14.5 g/dL (11.5-15.4); Lymphocytes # 3.8 K/mcL (0.6-4.6); Lymphocytes % 25.5 %; Mean Corpuscular HGB Conc 31.9 g/dL (31.6-35.5); Mean Corpuscular Hemoglobin 30.3 pg (28.0-33.3); Mean Platelet Volume 10.9 fL (9.4-12.4); Monocytes # 0.6 K/mcL (0.0-1.3); Monocytes % 3.9 %; Platelet Count 390 K/mcL (140-400); Red Blood Count 4.78 M/mcL (3.82-4.97); Red Cell Distribution Width 14.6 % (11.5-14.5); Segmented Neutrophils % 68.2 %
[2017-12-28 22:34] LABS: Phosphorous 2.8 mg/dL (2.7-4.5)
[2017-12-28 22:36] LABS: Alanine Aminotransferase 23 Units/L (7-52); Albumin 3.7 g/dL (3.5-5.7); Albumin/Globulin Ratio 1.1 (1.1-2.2); Alkaline Phosphatase 171 Units/L (34-104); Aspartate Amino Transferase 20 Units/L (13-39); BUN/Creatinine Ratio 16 (6-26); Bilirubin,Total 0.3 mg/dL (0.3-1.0); Blood Urea Nitrogen 18 mg/dL (6-20); Calcium 9.3 mg/dL (8.6-10.3); Carbon Dioxide 24 mEq/L (23-29); Chloride 106 mEq/L (98-107); Globulin 3.3 g/dL (2.4-3.5); Glucose 108 mg/dL (70-105); Osmolality,Calculated 286 (280-300); Potassium 3.8 mEq/L (3.5-5.1); Sodium 137 mEq/L (136-145); eGFR For Non-African Americans 51 (> 60)
[2017-12-28 23:07] LABS: Bilirubin,Urine Negative (Negative); Blood,Urine Negative (Negative); Clarity,Urine Clear (Clear); Color,Urine Yellow (Yellow); Glucose,Urine (UA) Normal (Normal); Ketones,Urine Trace mg/dL (Negative); Leukocyte Esterase,Urine Small (Negative); Nitrite,Urine Negative (Negative); PH,Urine 7.5 pH Units (5.0-8.0); Protein,Urine Negative (Neg-Trace); Specific Gravity,Urine 1.016 (1.010-1.025); Urobilinogen,Urine Normal (Normal)
[2017-12-28 23:09] LABS: Bacteria,Urine None Seen per hpf (None-Few); Hyaline Casts,Urine None Seen per lpf (None-Few); RBC,Urine 0-3 per hpf (0-3); Squamous Epithelial Cell,Urine Many per lpf (None-Few); WBC,Urine 0-3 per hpf (0-3)
[2017-12-29] MEDS ORDERED: *HR* Labetalol 20 MG/4 ML SYRINGE IVP ONE (02:48)
[2017-12-29] MEDS ORDERED: *HR* LORazepam 2 MG/ML VIAL ONE (03:03)
[2017-12-29] MEDS ORDERED: amLODIPine 5 MG TABLET PO ONE (05:00)
--- NOTE | 2017-12-29 07:34 | Internal Med Progress Note ---
<Rayna Donaldson - Last Filed: 12/29/17 15:02> Hospitalist Progress Note - Exam Vitals: Temp Pulse Resp BP Pulse Ox 98.3 F 104 17 173/113 98 12/29/17 09:00 12/29/17 09:00 12/29/17 09:00 12/29/17 09:00 12/29/17 09:00 - Time Spent with Patient Total time spent is greater than 50% in coordination of care (as documented) at patient's floor/unit and/or counseling patient: Internal Medicine: Result - Labs CBC & Chem 7: 12/28/17 21:49 12/28/17 22:01 Labs: Short CBC 12/28/17 Range/Units 21:49 WBC 14.7 H (4.3-11.1) K/mcL Hgb 14.5 (11.5-15.4) g/dL Hct 45.4 H (35.3-44.9) % Plt Count 390 (140-400) K/mcL Neutrophils # 10.0 H (1.6-8.9) K/mcL BMP 12/28/17 22:01 Sodium 137 Potassium 3.8 Chloride 106 Carbon Dioxide 24 BUN 18 Creatinine 1.10 Glucose 108 H Calcium 9.3 Liver Function 12/28/17 Range/Units 22:01 Total Bilirubin 0.3 (0.3-1.0) mg/dL AST 20 (13-39) Units/L ALT 23 (7-52) Units/L Alkaline Phosphatase 171 H (34-104) Units/L Albumin 3.7 (3.5-5.7) g/dL Urine 12/28/17 Range/Units 22:50 Urine Color Yellow (Yellow) Urine Clarity Clear (Clear) Urine pH 7.5 (5.0-8.0) pH Units Ur Specific [place] 1.016 (1.010-1.025) Urine Protein Negative (Neg-Trace) mg/dL Urine Glucose (UA) Normal (Normal) mg/dL - Impressions Impressions Chest X-Ray 12/28/17 21:00 IMPRESSION: No acute abnormality. D/ / José Miguel Nicole MD / José Miguel Nicole MD Interpreting Provider: José Miguel Nicole MD Consult Discharge Plan - Plan Referrals: NONE,PCP [Primary Care Provider] - - Attending Attestation I examined this patient and my medical decision-making [facility] Rod[facility]. I agree with the documented findings, disposition and treatment plan as described except to the extent set forth below/addl details below. MS Patel was admitted to the pschiatry unit after supposed suicide attempt. She has a past psychiatric history of anxiety, depression, bipolar, and psychosis and has not been taking any meds per her . She was transferred to medical unit for hypertension and leukocytosis. awake, agreeable to speaking with me. She denies any headache and does not describe any vision changes with elevated bps. No chest pain, palpitations or sob. She is vague when asked why she came to hospital in first place "i think i did something stupid", but does not elaborate. Sitter at bedside. Aware she is at [facility]. Agreeable to physical exam Nursing documentation overnight describes significant paranoia and fear she will be murdered here gen- alert, awake,appears stated age eyes- pupils equal round, eom intact cv- reg rate and rhythm, normal s1,s2, no murmurs appreciated, no le edema, no jvd appreciated lungs- ctabl, no wheezing, rhonchi or crackles neuro- AAOxperson, hospital, CN grossly intact, no focal deficits Leukocytosis, no identifable infectious etiology, afebrile -CXR neg, UA neg, bl cxs pending, no indication for abx at this time -check am cbc if pt permits HTN, uncontrolled with sbps >160 and dbp > 100 -prn antihypertensives available -started on norvasc, hctz, lisinopril on transfer to floor -changed today to chlorthalidone + lisinopril and increasing dosing -goal bp today 160/90, plan discussed with rn once medically stable will consult psych <Delio Rodarte - Last Filed: 12/29/17 18:11> Hospitalist Progress Note - Encounter Date of Encounter: 12/29/17 Time of Encounter: 09:30 - Subjective Interval History: this is a 57 year old female past medical history of anxiety, depression, bipolar and psychosis who was admitted to the floor because of altered mental status, HTN and Leuokocytosis. She initially came to the psych unit because of supposedly a suicidal attempt, sent to the floor because of elevated blood pressure and leukocytosis. Workup was negative for any pathology in the chest x-ray, her UA showed small amount of leukocyte esterase. Most of the history was obtained from the patients . According to him, patient has been without her psych medications for a while (he couldn't specify if it was weeks or months) .He endorses that other than her Hx of anxiety , dperesion, bipolar disorders, and scoliosis she has no other medical problems. Patient has no prior sick contacts, no PMHx of renal problems, her thyroid workup was negative . Patient has not been complaining any symptoms like MORGAN, belly pain, diarrhea, dizziness. She denies any systemic signs like fever, shortness of breath, chest pain. - Exam Vitals: Temp Pulse Resp BP Pulse Ox 98.2 F 89 17 184/126 96 12/29/17 06:27 12/29/17 06:27 12/29/17 06:27 12/29/17 06:27 12/29/17 06:27 Exam: I was unable to get a physical exam on the patient. I tried to get the stethoscope the patient is probably but she refused to co-operate - Assessment and Plan (1) HTN (hypertension) Current Visit: Yes Status: Acute Assessment and Plan: - Likely essential. T4, TSH workup was negative. Patient's BUN/creatinine numbers are pretty normal without any possibility of kidney problems. Appears to me that patient has always had high blood pressure which went undiagnosed because patient had not seen her PCP for a while. -Patient was on lisinopril 5 mg, HCTZ 12.5, amlodipine for high blood pressure did not help. Most recent being 172/88. - She is currently on 2 antihypertensive hypertensive. Her lisiopril has been increased from 5-10 mg. Change her hydrochlorothiazide to chlorthalidone 25 mg as of his better antihypertensives effects. - Continue to monitor. (2) Elevated white blood cell count Current Visit: Yes Status: Acute Assessment and Plan: -Likely idiopathic in nature at the moment. Patient denies any sick contacts, no recent travels, -Patient's chest x-ray was pretty unremarkable. We did show mild leukocyte e sterase - Repeat CBC in a.m., check if the patient is febrile and take it from there - Time Spent with Patient Total time spent is greater than 50% in coordination of care (as documented) at patient's floor/unit and/or counseling patient: Internal Medicine: Result - Labs CBC & Chem 7: 12/28/17 21:49 12/28/17 22:01 Labs: Short CBC 12/28/17 Range/Units 21:49 WBC 14.7 H (4.3-11.1) K/mcL Hgb 14.5 (11.5-15.4) g/dL Hct 45.4 H (35.3-44.9) % Plt Count 390 (140-400) K/mcL Neutrophils # 10.0 H (1.6-8.9) K/mcL BMP 12/28/17 22:01 Sodium 137 Potassium 3.8 Chloride 106 Carbon Dioxide 24 BUN 18 Creatinine 1.10 Glucose 108 H Calcium 9.3 Liver Function 12/28/17 Range/Units 22:01 Total Bilirubin 0.3 (0.3-1.0) mg/dL AST 20 (13-39) Units/L ALT 23 (7-52) Units/L Alkaline Phosphatase 171 H (34-104) Units/L Albumin 3.7 (3.5-5.7) g/dL Urine 12/28/17 Range/Units 22:50 Urine Color Yellow (Yellow) Urine Clarity Clear (Clear) Urine pH 7.5 (5.0-8.0) pH Units Ur Specific [place] 1.016 (1.010-1.025) Urine Protein Negative (Neg-Trace) mg/dL Urine Glucose (UA) Normal (Normal) mg/dL - Impressions Impressions Chest X-Ray 12/28/17 21:00
[2017-12-29] MEDS ORDERED: hydroCHLOROthiazide 25 MG TABLET PO SCH (09:00)
[2017-12-29 09:52] LABS: Thyroid Stimulating Hormone 1.362 mcIU/mL (0.340-5.600)
[2017-12-29 12:42] LABS: Amphetamine Screen,Urine Negative ng/mL (Cutoff=1000); Barbiturate Screen,Urine Negative ng/mL (Cutoff=200); Benzodiazepines Screen,Urine Negative ng/mL (Cutoff=200); Cannabinoid Screen,Urine Negative ng/mL (Cutoff = 50); Cocaine Screen,Urine Negative ng/mL (Cutoff= 300); Opiate Screen,Urine Negative ng/mL (Cutoff=300); Phencyclidine Screen,Urine Negative ng/mL (Cutoff=25)
[2017-12-29] MEDS: *HR* Heparin 5,000 UNIT/ML VIAL SQ SCH (18:07)
[2017-12-29] MEDS: Acetaminophen 325 MG TABLET PO PRN (19:58)
[2017-12-30] MEDS ORDERED: Melatonin 3 MG TABLET PO PRN (01:12)
[2017-12-30 05:22] LABS: Basophils # 0.1 K/mcL (0.0-0.2); Basophils % 0.3 %; Eosinophils % 0.1 %; Hematocrit 48.1 % (35.3-44.9); Hemoglobin 15.8 g/dL (11.5-15.4); Immature Granulocytes % 0.9 % (0-4); Lymphocytes # 4.3 K/mcL (0.6-4.6); Lymphocytes % 20.7 %; Mean Corpuscular HGB Conc 32.8 g/dL (31.6-35.5); Mean Corpuscular Hemoglobin 30.8 pg (28.0-33.3); Mean Corpuscular Volume 93.8 fL (83.0-100.0); Mean Platelet Volume 10.6 fL (9.4-12.4); Monocytes # 1.1 K/mcL (0.0-1.3); Monocytes % 5.3 %; Neutrophils # 14.9 K/mcL (1.6-8.9); Platelet Count 501 K/mcL (140-400); Red Blood Count 5.13 M/mcL (3.82-4.97); Red Cell Distribution Width 14.8 % (11.5-14.5); Segmented Neutrophils % 72.7 %
[2017-12-30] MEDS: *HR* Heparin 5,000 UNIT/ML VIAL SQ SCH ×2 (05:58→17:27)
[2017-12-30] MEDS: Acetaminophen 325 MG TABLET PO PRN (06:07)
--- NOTE | 2017-12-30 07:39 | Internal Med Progress Note ---
Addendum entered and electronically signed by Saul Robertson DO 12/30/17 09:59: (4) Elevated troponin Current Visit: Yes Status: Acute Assessment and Plan: Patient reports chest pain today. EKG revealed tachycardia at rate 108, biphasic p wave with nonspecific T wave abnormality, with inverted T wave's in leads V2 V3. No previous EKGs available for comparison. Initial troponin 0.06, trend serial troponins. Aspirin given. No indication for starting heparin drip at this time. Consider further treatment based on next Troponin level Rapid flu swab negative. Blood cultures show no growth to date. Original Note: <Saul Robertson - Last Filed: 12/30/17 08:30> Hospitalist Progress Note - Encounter Date of Encounter: 12/30/17 Time of Encounter: 07:39 - Subjective Interval History: Patient seen and examined resting comfortably in bed. Patient had low-grade temperature 99.8F overnight and leukocytosis 20.6. Patient is concerned that she is being accused of something she has not done. When asked to give more details, she states is concerned about her cats. She reports generalized malaise, aches and pains all over as well as chest pain. Patient is requesting Ativan this morning. - Exam Vitals: Temp Pulse Resp BP Pulse Ox 99.8 F H 121 17 168/89 96 12/29/17 21:00 12/29/17 21:00 12/29/17 21:00 12/29/17 21:00 12/29/17 21:00 Exam: General appearance: Present: cooperative, A&O X 3, no acute distress, answers questions appropriately Exam: Awake, pleasant, resting comfortably in bed - Head Head exam: Present: atraumatic, normocephalic - Eye Eye exam: Present: pupil dilated, EOMI, conjuntiva pink, sclera anicteric - ENT ENT exam: Present: mucous membranes moist - Neck Neck exam general surgery: Present: supple, trachea midline. Absent: lymphadenopathy - Respiratory Respiratory exam: Present: CTAB. Absent: accessory muscle use, rales, rhonchi, wheezes - Cardiovascular Cardiovascular exam: Present: RRR, +S1, +S2. Absent: diastolic murmur, gallop, rubs, systolic murmur - GI/Abdominal GI/Abdominal exam: Present: normal bowel sounds, soft, no peritoneal signs. Absent: distended, tenderness - Extremities Exam Extremities exam: Present: warm, radial pulses palpable and symmetrical. Absent: calf tenderness, cyanotic, pedal edema - Neurological Exam Neurological exam: Present: CN II-XII intact, oriented X3, no focal deficits. Absent: pronater drift, facial droop, speech deficit - Psychiatric Psychiatric exam: Present: normal affect, normal mood - Skin Skin exam: Present: dry, warm, no rash - Assessment and Plan (1) Elevated white blood cell count Current Visit: Yes Status: Acute Assessment and Plan: Patient had low-grade temperature 99.8F overnight and leukocytosis 20.6. She reports generalized malaise, aches and pains all over Flu swab pending CXR negative UA negative Repeat CBC in a.m., monitor vital signs and continue Tylenol when necessary (2) Suicidal behavior Current Visit: Yes Status: Acute Assessment and Plan: Patient is concerned that she is being accused of something she has not done. When asked to give more details, she states is concerned about her cats. Patient is requesting Ativan this morning. Anticipate psych eval once blood pressure is better controlled (3) HTN (hypertension) Current Visit: Yes Status: Acute Assessment and Plan: Increased Lisinopril to 10 mg, started Chlorthalidone 25 mg daily Continue to monitor. Anticipate psych eval once blood pressure is better controlled DVT Prophylaxis: Heparin subcutaneous TID - Time Spent with Patient Total time spent is greater than 50% in coordination of care (as documented) at patient's floor/unit and/or counseling patient: Internal Medicine: Result - Labs CBC & Chem 7: 12/30/17 04:28 12/28/17 22:01 Labs: Short CBC 12/30/17 Range/Units 04:28 WBC 20.6 H (4.3-11.1) K/mcL Hgb 15.8 H (11.5-15.4) g/dL Hct 48.1 H (35.3-44.9) % Plt Count 501 H (140-400) K/mcL Neutrophils # 14.9 H (1.6-8.9) K/mcL - Pulse Oximetry Interpretation Digit-Finger Pulse Oximetry Readin (On RA) Consult Discharge Plan - Plan Referrals: NONE,PCP [Primary Care Provider] - <Natanael Man - Last Filed: 12/30/17 17:04> Hospitalist Progress Note - Exam Vitals: Temp Pulse Resp BP Pulse Ox 99.1 F 113 18 169/90 94 12/30/17 09:40 12/30/17 09:40 12/30/17 09:40 12/30/17 09:40 12/30/17 09:40 - Assessment and Plan (1) Sepsis Current Visit: Yes Status: Acute Assessment and Plan: Pt with leukocytosis and tachycardia. No source at this time. (2) Elevated white blood cell count Current Visit: Yes Status: Acute (3) Suicidal behavior Current Visit: Yes Status: Acute (4) HTN (hypertension) Current Visit: Yes Status: Acute (5) Bipolar disorder Current Visit: Yes Status: Chronic (6) Morbid obesity with BMI of 40.0-44.9, adult Current Visit: Yes Status: Chronic - Time Spent with Patient Total time spent is greater than 50% in coordination of care (as documented) at patient's floor/unit and/or counseling patient: Internal Medicine: Result - Labs CBC & Chem 7: 12/30/17 04:28 12/30/17 08:50 Labs: Short CBC 12/30/17 Range/Units 04:28 WBC 20.6 H (4.3-11.1) K/mcL Hgb 15.8 H (11.5-15.4) g/dL Hct 48.1 H (35.3-44.9) % Plt Count 501 H (140-400) K/mcL Neutrophils # 14.9 H (1.6-8.9) K/mcL BMP 12/30/17 08:50 Sodium 134 L Potassium 3.9 Chloride 101 Carbon Dioxide 23 BUN 18 Creatinine 1.00 Glucose 137 H Calcium 9.8 Cardiac Enzymes 12/30/17 12/30/17 Range/Units 08:50 14:57 Troponin I 0.06 H* 0.04 H* (< 0.04) ng/mL Liver Function 12/30/17 Range/Units 08:50 Total Bilirubin 0.5 (0.3-1.0) mg/dL AST 13 (13-39) Units/L ALT 18 (7-52) Units/L Alkaline Phosphatase 166 H (34-104) Units/L Albumin 3.9 (3.5-5.7) g/dL - Attending Attestation I examined this patient and my medical decision-making was reviewed with the Re sident Physician on 12/30/17. I agree with the documented findings, disposition and treatment plan as described except to the extent set forth below. Ms Patel is currently in observation for HTN and leukocytosis. She remains moderate to high risk due to potential for worsening clinical status. Ms Patel says she feels dyspneic at times. No fever or chills. WBC is higher today. No GI issues. BP up and down. No CP. Exam Alert Comfortable lying flat in bed Mucus membranes dry Heart reg and tachy Lungs diminished Abd soft I/P 1. Sepsis - no clear source but has leukocytosis and tachycardia. Currently on IV abx and cultures pending. Will get CTA of chest today. 2. HTN - continue med adjustmennt Further diagnoses and plan as above. <Saul Robertson - Last Filed: 12/30/17 08:30> (3) HTN (hypertension) Qualifiers: Hypertension type: essential hypertension Qualified Code(s): I10 - Essential (primary) hypertension <Natanael Man - Last Filed: 12/30/17 17:04> (1) Sepsis Qualifiers: Sepsis type: sepsis due to unspecified organism Qualified Code(s): A41.9 - Sepsis, unspecified organism (2) Elevated white blood cell count Qualifiers: Leukocytosis type: other Qualified Code(s): D72.828 - Other elevated white blood cell count (3) Suicidal behavior Qualifiers: Attempted self-injury: with attempted self-injury Qualified Code(s): T14.91XA - Suicide attempt, initial encounter (4) HTN (hypertension) Qualifiers: Hypertension type: essential hypertension Qualified Code(s): I10 - Essential (primary) hypertension (5) Bipolar disorder Qualifiers: Active/Remission status: remission status unspecified Qualified Code(s): F31.9 - Bipolar disorder, unspecified
[2017-12-30 09:28] LABS: Alanine Aminotransferase 18 Units/L (7-52); Albumin 3.9 g/dL (3.5-5.7); Albumin/Globulin Ratio 1.1 (1.1-2.2); Alkaline Phosphatase 166 Units/L (34-104); Aspartate Amino Transferase 13 Units/L (13-39); BUN/Creatinine Ratio 18 (6-26); Bilirubin,Total 0.5 mg/dL (0.3-1.0); Blood Urea Nitrogen 18 mg/dL (6-20); Calcium 9.8 mg/dL (8.6-10.3); Carbon Dioxide 23 mEq/L (23-29); Chloride 101 mEq/L (98-107); Globulin 3.5 g/dL (2.4-3.5); Glucose 137 mg/dL (70-105); Osmolality,Calculated 282 (280-300); Potassium 3.9 mEq/L (3.5-5.1); Sodium 134 mEq/L (136-145); Total Protein 7.4 g/dL (6.4-8.9); eGFR For Non-African Americans 57 (> 60)
[2017-12-30] MEDS ORDERED: Aspirin 325 MG TABLET PO ONE (10:03)
--- NOTE | 2017-12-30 14:34 | Electrocardiograph Report ---
[address] [address] Test Date: 2017-12-30 Pat Name: Debo Patel Department: 109 Room: [facility] [place] Gender: F [employer] Teacher: : 1960 Requested By: Saul Robertson Order Number: [id number] Reading MD: Azar Donohue Measurements Intervals [place] Rate: 108 P: 31 CO: 136 QRS: -15 QRSD: 84 T: 51 QT: 334 QTc: 397 Interpretive Statements SINUS TACHYCARDIA VOLTAGE CRITERIA FOR LVH NONSPECIFIC T-WAVE ABNORMALITY Electronically Signed On 12-30-2017 14:33:00 EDT by Azar Donohue
[2017-12-30] MEDS ORDERED: Isovue-370 500 ML INFUS..BTL IV ONE (14:44)
--- NOTE | 2017-12-30 19:30 | Consult Note ---
Date of Encounter: 12/30/17 Time of Encounter: 18:45 Assessment & Recommendation (1) Bipolar disorder Current visit: Yes Status: Acute Qualifiers: Active/Remission status: in remission of unspecified degree Qualified Code(s): F31.70 - Bipolar disorder, currently in remission, most recent episode unspecified (2) Delirium due to known physiological condition Current visit: Yes Status: Acute History of Present Illness Patient: known to practice within the last 3 years Requesting Physician: Natanael Man DO Reason for consult: sitter 1:1 History of present illness: Ms. Patel is a 57 year old female Chief complaints: I am in a good mood I am not planning on hurting myself or anyone else History of present illness: The patient was admitted to one [facility]. The circumstances of the admission are noted in the chart. After brief stay on 1A the patient was found to be medically unstable on the causes of her altered mental status continue to be treated on the medical service. Most notably the patient has elevated white blood cells elevated temperature and other parameters that suggest some sort of an infection or metabolic change. The patient can provide a partial history but cannot tell me about the events leading to the hospitalization and appears to be amnestic for part of. The patient was previously treated by Dr. Odom. She was diagnosed with bipolar disorder and had episodes of depression. More recently the patient has been treated by her family doctor Dr. Julian. The patient has been on risperidone in the past Seroquel and Wellbutrin. The patient has a history of epilepsy but could not tell me much more than. The patient believes that she had a urinary tract infection. She denies suicidal ideation she reports that she is in a good mood she denies psychosis. On confrontational testing the patient had some deficits in memory attention concentration however she did learn by repeated trials. CC: Natanael Man DO Past Med Surg Social Fam HX - Past Medical History Source: unable to obtain Medical history: hypertension, seizures - Past Psychiatric History Psychiatric history: Reports: bipolar Family psychiatric history: Unknown Family History of Suicide: Unknown - Social History Smoking Status: Current every day smoker Alcohol use: none Drug use: none Medications & Allergies Baclofen 20 mg PO Q6H 12/29/17 [History] BuPROPion SR (12 HR) [Wellbutrin SR] 100 mg PO BID 12/29/17 [History] Diclofenac Potassium 50 mg PO TID 12/29/17 [History] Divalproex Sodium [Depakote] 125 mg PO BID 12/29/17 [History] Indomethacin 75 mg PO BID 12/29/17 [History] LORazepam [Lorazepam] 2 mg PO TID PRN 12/29/17 [History] Metoclopramide [Reglan] 10 mg PO QIDAC 12/29/17 [History] Nitroglycerin [Nitrostat] 0.4 mg SL PRN PRN 12/29/17 [History] Omeprazole [PriLOSEC] 40 mg PO DAILY 12/29/17 [History] Quetiapine Fumarate [Seroquel] 25 mg PO TID 12/29/17 [History] Allergy/AdvReac Type Severity Reaction Status Date / Time No Known Allergies Allergy Verified 12/29/17 09:31 Review of Systems Psychiatric: Reports: anxiety, memory loss, difficulty concentrating Psychiatry Exam - Constitutional Vitals: Temp Pulse Resp BP Pulse Ox 99.1 F 113 18 169/90 94 12/30/17 09:40 12/30/17 09:40 12/30/17 09:40 12/30/17 09:40 12/30/17 09:40 General appearance: age & developmentally appropriate, well-groomed, well- nourished, obese - Musculoskeletal Gait: slow Station: relaxed Strength & Tone: normal for patient - Psychiatric Patient Orientation: Yes Person, Yes Time, Yes Place, Yes Other Level of alertness: Alert Behavior: calm, cooperative Psychomotor activity: Slowed Eye Contact: Maintains Eye Contact Mood Description: Euthymic/stable Affect description: congruent with mood, full range Speech Volume: Normal Speech pattern: normal rate, normal rhythm, normal tone, fluent, spontaneous Language & Vocabulary: consistent with education Thought Process: Linear, Goal Oriented Thought Content: No Suicidal ideation, No Homicidal ideation, No Overt delusions Perceptual Disturbances: No Auditory hallucinations, No Visual hallucinations Attention Span Ability: Unable to Sustain Attention Memory Description: Recent Impaired Patient Reliability: Not Reliable Historian Fund of knowledge: Yes below average Intelligence Estimate: Average Judgment: Limited Insight: Minimal Results - Labs Labs: Laboratory Last Values WBC 20.6 K/mcL (4.3-11.1) H 12/30/17 04:28 RBC 5.13 M/mcL (3.82-4.97) H 12/30/17 04:28 Hgb 15.8 g/dL (11.5-15.4) H 12/30/17 04:28 Hct 48.1 % (35.3-44.9) H 12/30/17 04:28 MCV 93.8 fL (83.0-100.0) 12/30/17 04:28 MCH 30.8 pg (28.0-33.3) 12/30/17 04:28 MCHC 32.8 g/dL (31.6-35.5) 12/30/17 04:28 RDW 14.8 % (11.5-14.5) H 12/30/17 04:28 Plt Count 501 K/mcL (140-400) H 12/30/17 04:28 MPV 10.6 fL (9.4-12.4) 12/30/17 04:28 Immature Gran % 0.9 % (0-4) 12/30/17 04:28 Seg Neutrophils % 72.7 % 12/30/17 04:28 Lymphocytes % 20.7 % 12/30/17 04:28 Monocytes % 5.3 % 12/30/17 04:28 Eosinophils % 0.1 % 12/30/17 04:28 Basophils % 0.3 % 12/30/17 04:28 Neutrophils # 14.9 K/mcL (1.6-8.9) H 12/30/17 04:28 Lymphocytes # 4.3 K/mcL (0.6-4.6) 12/30/17 04:28 Monocytes # 1.1 K/mcL (0.0-1.3) 12/30/17 04:28 Eosinophils # 0.0 K/mcL (0.0-0.6) 12/30/17 04:28 Basophils # 0.1 K/mcL (0.0-0.2) 12/30/17 04:28 Sodium 134 mEq/L (136-145) L 12/30/17 08:50 Potassium 3.9 mEq/L (3.5-5.1) 12/30/17 08:50 Chloride 101 mEq/L (98-107) 12/30/17 08:50 Carbon Dioxide 23 mEq/L (23-29) 12/30/17 08:50 BUN 18 mg/dL (6-20) 12/30/17 08:50 Creatinine 1.00 mg/dL (0.60-1.20) 12/30/17 08:50 Est GFR ( Amer) > 60 (> 60) 12/30/17 08:50 Est GFR (Non-Af Amer) 57 (> 60) L 12/30/17 08:50 BUN/Creatinine Ratio 18 (6-26) 12/30/17 08:50 Glucose 137 mg/dL (70-105) H 12/30/17 08:50 Calculated Osmolality 282 (280-300) 12/30/17 08:50 Lactic Acid 0.9 mmol/L (0.5-2.2) 12/30/17 17:26 Calcium 9.8 mg/dL (8.6-10.3) 12/30/17 08:50 Phosphorus 2.8 mg/dL (2.7-4.5) 12/28/17 21:49 Magnesium 2.0 mg/dL (1.6-2.6) 12/28/17 21:49 Total Bilirubin 0.5 mg/dL (0.3-1.0) 12/30/17 08:50 AST 13 Units/L (13-39) 12/30/17 08:50 ALT 18 Units/L (7-52) 12/30/17 08:50 Alkaline Phosphatase 166 Units/L (34-104) H 12/30/17 08:50 Troponin I 0.04 ng/mL (< 0.04) H* 12/30/17 14:57 Serum Total Protein 7.4 g/dL (6.4-8.9) 12/30/17 08:50 Albumin 3.9 g/dL (3.5-5.7) 12/30/17 08:50 Globulin 3.5 g/dL (2.4-3.5) 12/30/17 08:50 Albumin/Globulin Ratio 1.1 (1.1-2.2) 12/30/17 08:50 TSH 1.362 mcIU/mL (0.340-5.600) 12/28/17 21:49 Free T4 0.72 ng/dl (0.70-2.00) 12/28/17 21:49 Urine Color Yellow (Yellow) 12/28/17 22:50 Urine Clarity Clear (Clear) 12/28/17 22:50 Urine pH 7.5 pH Units (5.0-8.0) 12/28/17 22:50 Ur Specific Clements 1.016 (1.010-1.025) 12/28/17 22:50 Urine Protein Negative mg/dL (Neg-Trace) 12/28/17 22:50 Urine Glucose (UA) Normal mg/dL (Normal) 12/28/17 22:50 Urine Ketones Trace mg/dL (Negative) H 12/28/17 22:50 Urine Blood Negative (Negative) 12/28/17 22:50 Urine Nitrite Negative (Negative) 12/28/17 22:50 Urine Bilirubin Negative (Negative) 12/28/17 22:50 Urine Urobilinogen Normal mg/dL (Normal) 12/28/17 22:50 Ur Leukocyte Esterase Small (Negative) H 12/28/17 22:50 Urine Microscopic RBC 0-3 per hpf (0-3) 12/28/17 22:50 Urine Microscopic WBC 0-3 per hpf (0-3) 12/28/17 22:50 Ur Squamous Epith Cells Many per lpf (None-Few) H 12/28/17 22:50 Urine Bacteria None Seen per hpf (None-Few) 12/28/17 22:50 Hyaline Casts None Seen per lpf (None-Few) 12/28/17 22:50 Ur Culture Indicated? NO. (NO) A 12/28/17 22:50 Urine Opiates Screen Negative ng/mL (Fwozop=709) 12/28/17 10:50 Ur Barbiturates Screen Negative ng/mL (Zctzrz=096) 12/28/17 10:50 Ur Phencyclidine Scrn Negative ng/mL (Cutoff=25) 12/28/17 10:50 Ur Amphetamines Screen Negative ng/mL (Vsvxhe=5117) 12/28/17 10:50 U Benzodiazepines Scrn Negative ng/mL (Fdeopu=459) 12/28/17 10:50 Urine Cocaine Screen Negative ng/mL (Cutoff= 300) 12/28/17 10:50 U Marijuana (THC) Screen Negative ng/mL (Cutoff = 50) 12/28/17 10:50 Ur Drug Screen Interp See Below 12/28/17 10:50 Consult Discharge Plan - Plan Referrals: NONE,PCP [Primary Care Provider] -
[2017-12-31] MEDS: Acetaminophen 325 MG TABLET PO PRN (04:19)
[2017-12-31 06:01] LABS: Basophils # 0.1 K/mcL (0.0-0.2); Basophils % 0.4 %; Eosinophils % 0.2 %; Hematocrit 48.1 % (35.3-44.9); Hemoglobin 15.8 g/dL (11.5-15.4); Immature Granulocytes % 1.1 % (0-4); Lymphocytes # 4.8 K/mcL (0.6-4.6); Lymphocytes % 25.3 %; Mean Corpuscular HGB Conc 32.8 g/dL (31.6-35.5); Mean Corpuscular Hemoglobin 30.7 pg (28.0-33.3); Mean Corpuscular Volume 93.6 fL (83.0-100.0); Mean Platelet Volume 10.1 fL (9.4-12.4); Monocytes # 1.1 K/mcL (0.0-1.3); Monocytes % 5.6 %; Neutrophils # 12.8 K/mcL (1.6-8.9); Platelet Count 462 K/mcL (140-400); Red Blood Count 5.14 M/mcL (3.82-4.97); Red Cell Distribution Width 15.1 % (11.5-14.5); Segmented Neutrophils % 67.4 %
[2017-12-31 06:07] LABS: INR 1.1
[2017-12-31 06:38] LABS: Alanine Aminotransferase 17 Units/L (7-52); Albumin/Globulin Ratio 1.2 (1.1-2.2); Alkaline Phosphatase 159 Units/L (34-104); Aspartate Amino Transferase 15 Units/L (13-39); BUN/Creatinine Ratio 22 (6-26); Bilirubin,Total 0.5 mg/dL (0.3-1.0); Blood Urea Nitrogen 24 mg/dL (6-20); Calcium 9.7 mg/dL (8.6-10.3); Carbon Dioxide 22 mEq/L (23-29); Chloride 103 mEq/L (98-107); Globulin 3.4 g/dL (2.4-3.5); Glucose 123 mg/dL (70-105); Osmolality,Calculated 289 (280-300); Potassium 3.9 mEq/L (3.5-5.1); Sodium 137 mEq/L (136-145); Total Protein 7.4 g/dL (6.4-8.9); eGFR For Non-African Americans 51 (> 60)
[2017-12-31] MEDS: *HR* Heparin 5,000 UNIT/ML VIAL SQ SCH ×2 (06:40→18:02)
--- NOTE | 2017-12-31 08:40 | Internal Med Progress Note ---
<Natanael Man - Last Filed: 12/31/17 16:28> Hospitalist Progress Note - Exam Vitals: Temp Pulse Resp BP Pulse Ox 98.6 F 100 18 89/65 93 12/31/17 11:49 12/31/17 11:49 12/31/17 11:49 12/31/17 11:49 12/31/17 11:49 - Assessment and Plan (1) Elevated white blood cell count Current Visit: Yes Status: Acute (2) Suicidal behavior Current Visit: Yes Status: Acute (3) Bipolar disorder Current Visit: Yes Status: Chronic (4) HTN (hypertension) Current Visit: Yes Status: Acute (5) Sepsis Current Visit: Yes Status: Acute (6) Morbid obesity with BMI of 40.0-44.9, adult Current Visit: Yes Status: Chronic (7) Seizure disorder Current Visit: Yes Status: Chronic - Time Spent with Patient Total time spent is greater than 50% in coordination of care (as documented) at patient's floor/unit and/or counseling patient: Internal Medicine: Result - Labs CBC & Chem 7: 12/31/17 05:47 12/31/17 05:47 Labs: Short CBC 12/31/17 Range/Units 05:47 WBC 18.9 H (4.3-11.1) K/mcL Hgb 15.8 H (11.5-15.4) g/dL Hct 48.1 H (35.3-44.9) % Plt Count 462 H (140-400) K/mcL Neutrophils # 12.8 H (1.6-8.9) K/mcL BMP 12/31/17 05:47 Sodium 137 Potassium 3.9 Chloride 103 Carbon Dioxide 22 L BUN 24 H Creatinine 1.11 Glucose 123 H Calcium 9.7 Cardiac Enzymes 12/30/17 Range/Units 21:13 Troponin I 0.04 H* (< 0.04) ng/mL Liver Function 12/31/17 Range/Units 05:47 Total Bilirubin 0.5 (0.3-1.0) mg/dL AST 15 (13-39) Units/L ALT 17 (7-52) Units/L Alkaline Phosphatase 159 H (34-104) Units/L Albumin 4.0 (3.5-5.7) g/dL - ABG Interpretation ABG results: PT/INR, D-dimer PT 12.0 Seconds (9.4-12.1) 12/31/17 05:47 - Impressions Impressions Chest CTA 12/30/17 17:30 IMPRESSION: No evidence of pulmonary embolism or acute pulmonary abnormality. D/ / Kumar Lopez MD / Kumar Lopez MD Interpreting Provider: Kumar Lopez MD Consult Discharge Plan - Plan Referrals: NONE,PCP [Primary Care Provider] - - Attending Attestation I examined this patient and my medical decision-making was reviewed with the Resident Physician on 12/31/17. I agree with the documented findings, dis position and treatment plan as described except to the extent set forth below. Ms Patel is currently in observation for leukocytosis and HTN. She remains moderate to high risk at this time. Ms Patel seems more oriented today. Appreciate psych input - neuro consulted. No fever or chills. WBC remains elevated. No CP or SOB today. No cough. No diarrhea Exam alert Comfortable up in chair. Mucus membranes dry Heart reg - slightly tachy No wheeze or rales Abd soft and nontender No rash or lesion Moves all extremities. I/P 1. Leukocytosis - no distinct source of infection found 2. HTN - better today 3. Suicidal ideation - pink slip to be done Further diagnoses and plan as above. <Delio Rodarte - Last Filed: 12/31/17 18:43> Hospitalist Progress Note - Encounter Date of Encounter: 12/31/17 Time of Encounter: 10:30 - Subjective Interval History: 12/31 No acute events overnight. Patient is comfortably sitting on the couch when I met her this morning. she is back on her home medications Keppra and baclofen today and seraquel 25mg TID starting tomorrow. I was also informed that according to patient's PCP she attempted suicide 2 weeks ago by overdosing on Haldol, Nurse paged me this afternoon about her coming and taking her back home I spoke to the Mr. Fritz this p.m. and explained to her him that patient has a history of suicidal ideation and has a high white blood count, we are in the middle of investigating that . Patient's does not believe that the workup should takes that long. Had the nurse make a phone call to the [facility] and speak to [facility] . I was told that her history of suicidal ideation she should be pink slipped. I did so. 12/29 this is a 57 year old female past medical history of anxiety, depression, bipolar and psychosis who was admitted to the floor because of altered mental status, HTN and Leuokocytosis. She initially came to the psych unit because of supposedly a suicidal attempt, sent to the floor because of elevated blood pressure and leukocytosis. Workup was negative for any pathology in the chest x-ray, her UA showed small amount of leukocyte esterase. Most of the history was obtained from the patients . According to him, patient has been without her psych medications for a while (he couldn't specify if it was weeks or months) .He endorses that other than her Hx of anxiety , dperesion, bipolar disorders, and scoliosis she has no other medical problems. Patient has no prior sick contacts, no PMHx of renal problems, her thyroid workup was negative . Patient has not been complaining any symptoms like MORGAN, belly pain, diarrhea, dizziness. She denies any systemic signs like fever, shortness of breath, chest pain. - Exam Vitals: Temp Pulse Resp BP Pulse Ox 98.9 F 119 18 112/82 92 12/31/17 08:34 12/31/17 08:34 12/31/17 08:34 12/31/17 08:34 12/31/17 08:34 Exam: General appearance: Present: cooperative, A&O X 3, no acute distress, answers questions appropriately Exam: Awake, pleasant, resting comfortably in bed - Head Head exam: Present: atraumatic, normocephalic - Eye Eye exam: Present: pupil dilated, EOMI, conjuntiva pink, sclera anicteric - ENT ENT exam: Present: mucous membranes moist - Neck Neck exam general surgery: Present: supple, trachea midline. Absent: lymphadenopathy - Respiratory Respiratory exam: Present: CTAB. Absent: accessory muscle use, rales, rhonchi, wheezes - Cardiovascular Cardiovascular exam: Present: RRR, +S1, +S2. Absent: diastolic murmur, gallop, rubs, systolic murmur - GI/Abdominal GI/Abdominal exam: Present: normal bowel sounds, soft, no peritoneal signs. Absent: distended, tenderness - Extremities Exam Extremities exam: Present: warm, radial pulses palpable and symmetrical. Absent: calf tenderness, cyanotic, pedal edema - Neurological Exam Neurological exam: Present: CN II-XII intact, oriented X3, no focal deficits. Absent: pronater drift, facial droop, speech deficit - Psychiatric Psychiatric exam: Present: normal affect, normal mood - Skin Skin exam: Present: dry, warm, no rash - Assessment and Plan (1) Elevated white blood cell count Current Visit: Yes Status: Acute Assessment and Plan: -Likely idiopathic in nature at the moment. Patient denies any sick contacts, no recent travels, -Patient's chest x-ray was pretty unremarkable. Her white blood count is 18.9 - ESR pending. Cultures are pending. At his point malignancy cannot be ruled out totally and my next step would be to get CT abdominal pelvis to rule out any masses. I was also told that her cat scratched her a few days ago therefore I would like to investigate that further and see if there is any possibility of cellulitis infection (2) Suicidal behavior Current Visit: Yes Status: Acute Assessment and Plan: - I learned today from a fellow resident spoke to her PCP that patient tried to commit suicide 2 weeks ago overdosing on Haldol. I spoke to her Mr. Fritz over the phone who was insisting that he will take the patient back home today, denies that patient never acted on her suicidal thoughts. On adrienne mmendations of psych, I had to pink slip the patient - Anticipate psych eval once blood pressure and white blood count is better controlled (3) Bipolar disorder Current Visit: Yes Status: Chronic Assessment and Plan: - Patient has a history of bipolar disorder. Patient was not on any of her bipolar meds because we were not sure of what medication she was taking for her bipolar disorder. Finally we were able to find out the medications that she is on and it looks like she was recently prescribed Seroquel for her bipolar by Dr. Julian her PCP. She also has to history of epilepsy and was on Keppra 500mg . Therefore I started her back on Keppra 500mg today, and Seroquel 25 mg TID tomorrow (4) HTN (hypertension) Current Visit: Yes Status: Acute Assessment and Plan: Increased Lisinopril to 10 mg, started Chlorthalidone 25 mg daily Continue to monitor. Anticipate psych eval once blood pressure is better controlled (5) Sepsis Current Visit: Yes Status: Acute Assessment and Plan: - Patient met the sepsis criteria with her leukocytosis and tachycardia. Her blood cultures are pending . I ordered an ESR on her to rule out any source of inflammation. At this point it is hard to tell what could be a potential source for sepsis but we are investigating further.. (6) Morbid obesity with BMI of 40.0-44.9, adult Current Visit: Yes Status: Chronic Assessment and Plan: - Has a history of morbid obesity. - We will consel on better dietary choices on discharge. DVT Prophylaxis: Heparin subcutaneous TID - Time Spent with Patient Total time spent is greater than 50% in coordination of care (as documented) at patient's floor/unit and/or counseling patient: Internal Medicine: Result - Labs CBC & Chem 7: 12/31/17 05:47 12/31/17 05:47 Labs: Short CBC 12/31/17 Range/Units 05:47 WBC 18.9 H (4.3-11.1) K/mcL Hgb 15.8 H (11.5-15.4) g/dL Hct 48.1 H (35.3-44.9) % Plt Count 462 H (140-400) K/mcL Neutrophils # 12.8 H (1.6-8.9) K/mcL BMP 12/30/17 12/31/17 08:50 05:47 Sodium 134 L 137 Potassium 3.9 3.9 Chloride 101 103 Carbon Dioxide 23 22 L BUN 18 24 H Creatinine 1.00 1.11 Glucose 137 H 123 H Calcium 9.8 9.7 Cardiac Enzymes 12/30/17 12/30/17 12/30/17 Range/Units 08:50 14:57 21:13 Troponin I 0.06 H* 0.04 H* 0.04 H* (< 0.04) ng/mL Liver Function 12/30/17 12/31/17 Range/Units 08:50 05:47 Total Bilirubin 0.5 0.5 (0.3-1.0) mg/dL AST 13 15 (13-39) Units/L ALT 18 17 (7-52) Units/L Alkaline Phosphatase 166 H 159 H (34-104) Units/L Albumin 3.9 4.0 (3.5-5.7) g/dL - ABG Interpretation ABG results: PT/INR, D-dimer PT 12.0 Seconds (9.4-12.1) 12/31/17 05:47 - Impressions Impressions Chest CTA 12/30/17 17:30 IMPRESSION: No evidence of pulmonary embolism or acute pulmonary abnormality. D/ / Kumar Lopez MD / Kumar oLpez MD Interpreting Provider: Kumar Lopez MD <Natanael Man - Last Filed: 12/31/17 16:28> (1) Elevated white blood cell count Qualifiers: Leukocytosis type: other Qualified Code(s): D72.828 - Other elevated white blood cell count (2) Suicidal behavior Qualifiers: Attempted self-injury: with attempted self-injury Qualified Code(s): T14.91XA - Suicide attempt, initial encounter (3) Bipolar disorder Qualifiers: Active/Remission status: remission status unspecified Qualified Code(s): F31.9 - Bipolar disorder, unspecified (4) HTN (hypertension) Qualifiers: Hypertension type: essential hypertension Qualified Code(s): I10 - Essential (primary) hypertension (5) Sepsis Qualifiers: Sepsis type: sepsis due to unspecified organism Qualified Code(s): A41.9 - Sepsis, unspecified organism <Delio Rodarte - Last Filed: 12/31/17 18:43> (1) Elevated white blood cell count Qualifiers: Leukocytosis type: other Qualified Code(s): D72.828 - Other elevated white blood cell count (2) Suicidal behavior Qualifiers: Attempted self-injury: with attempted self-injury Qualified Code(s): T14.91XA - Suicide attempt, initial encounter (3) Bipolar disorder Qualifiers: Active/Remission status: remission status unspecified Qualified Code(s): F31.9 - Bipolar disorder, unspecified (4) HTN (hypertension) Qualifiers: Hypertension type: essential hypertension Qualified Code(s): I10 - Essential (primary) hypertension (5) Sepsis Qualifiers: Sepsis type: sepsis due to unspecified organism Qualified Code(s): A41.9 - Sepsis, unspecified organism
[2017-12-31] MEDS: Aspirin 81 MG TAB.CHEW PO SCH (09:55)
--- NOTE | 2017-12-31 10:30 | Neurology - Consult Note ---
<Saúl Ash - Last Filed: 12/31/17 14:16> Date of Encounter: 12/31/17 Time of Encounter: 10:24 Assessment and Plan (1) Delirium due to known physiological condition Status: Acute neurology was consulted for ams patient's neurological exam is non-focal and non-lateralizing head ct is negative she has extensive psychiatric hx and recently attempted suicide two weeks ago by overdosing on haldol she was also recently started on seroquel and wellbutrin by pcp [place], patient is on baclofen which she has not been taking which can cause withdrawal psychosis Plan: May need to pursue leukocytosis, tachycardia, elevated platelets, restart her home medications. does not need any additional brain imaging (2) Seizure disorder Status: Acute restart patient on keppra 500mg daily. (3) Elevated white blood cell count Status: Acute Qualifiers: Leukocytosis type: other Qualified Code(s): D72.828 - Other elevated white blood cell count (4) Suicidal behavior Status: Acute as per psychiatry Qualifiers: Attempted self-injury: with attempted self-injury Qualified Code(s): T14.91XA - Suicide attempt, initial encounter (5) Bipolar disorder Status: Chronic Qualifiers: Active/Remission status: remission status unspecified Qualified Code(s): F31.9 - Bipolar disorder, unspecified History of Present Illness Chief complaint: Altered mental status HPI: Ms. Patel is a 57 year old female was initially presented to ED on 12/27 for altered mental status. As per EMR patient reported that she could not breathe while she was in her car and had presyncopal episode. At that time was found that patient had taken prescription medications to commit suicide. At that time patient was admitted to the psychiatric unit. However she was found to have le ukocytosis and hypertension. Patient was found to have history of seizures as well. Patient was worked up for infection which at this point has been negative. Her blood pressure has been constantly above SBP of 160 and DBP of 100 and she was started on 2 antihypertensive medications before normalization of blood pressure. Psychiatry was consulted and reported concerns about NMS. Patient is a poor historian. She denies suicidal ideation, homicidal ideation. She expresses thoughts of anxiety about not being able to see her are talked her . She has only gotten one hour sleep last 24 hours. She is calm and follows directions appropriately. I called patient's pcp who state she attempted suicide 2 weeks ago by overdose on haldol. She then followed up with him last friday where she told him her cat diet and her dog bit her leg. At that time she did not have leukocytosis. She also takes keppra for epilepsy and her last seizure was many years back. Patient was started last week on seroquel and wellbutrin by her PCP. Past Med Surg Social Fam HX - Past Medical History Medical history: hypertension, seizures Additional medical history: Pt denies HTN but confirms seizures Psychiatric history: bipolar - Social History Smoking Status: Current every day smoker Alcohol use: none Drug use: none Medications and Allergies Nitroglycerin [Nitrostat] 0.4 mg SL PRN PRN 12/29/17 [History] Omeprazole [PriLOSEC] 40 mg PO DAILY 12/29/17 [History] Acetaminophen [Tylenol] 650 mg PO Q6HR PRN tablet 01/03/18 [Rx] Haloperidol [Haldol] 0.5 mg PO TID 45 Days tablet 01/03/18 [Rx] Nystatin POWDER [Nystop] 1 appl TP BID 5 Days #1 bottle 01/03/18 [Rx] amLODIPine [Norvasc] 5 mg PO DAILY #30 tablet 01/03/18 [Rx] levETIRAcetam [Keppra] 500 mg PO DAILY #30 tablet 01/03/18 [Rx] PARoxetine HCl [Paroxetine HCl] 10 mg PO DAILY 01/04/18 [History] Allergy/AdvReac Type Severity Reaction Status Date / Time No Known Allergies Allergy Verified 12/29/17 09:31 All Systems: The remainder of the systems were reviewed and are negative Review of Systems: Constitutional: Denies fever, chills HEENT: Denies headache, trauma, blurry vision, eye discharge, ear pain, ear discharge neck pain, sore throat, rhinorrhea Heart: Denies chest pain palpitations, LE edema Lungs: Denies shortness of breath cough Abdomen: Denies abdominal pain nausea vomiting diarrhea MSK: Denies back pain, falls, joint pain Kidney: Denies dysuria, hematuria Skin: Denies rash, ulcers Neuro: Denies numbness and tingling. Psych: reports anxiety and depression. Denies HI/SI Physical Examination - Vital Signs Vital Signs: Initial Vital Signs Temp Pulse Resp BP Pulse Ox 98.3 F 73 18 159/93 98 12/28/17 15:58 12/28/17 15:58 12/28/17 15:58 12/28/17 15:58 12/28/17 15:58 - Exam Exam: General: very anxious HEENT: Head atraumatic, normocephalic, EOMI, PERRL, absent ear discharge or trauma, Moist Mucous Membranes, uvula midline Neck: nontender to palpation, absent lymphadenopathy, Cardiovascualr: Regular rate and rhythm with no murmur, absent gallops or rubs, absent pedal edema, radial pulses 2 out of 4 Lungs: Clear to auscultation bilaterally, not in respiratory distress Abdomen: Soft nontender, nondistended positive bowel sounds, absent hepatomegaly Skin: warm and dry, absent rash, absent open wounds and nodules MSK: absent clubbing, cyanosis, joints without swelling Psych: poor insight and judgment, anxious - Constitutional General appearance: comfortable - Neurologic Sensorimotor examination: intact Motor examination - right side: 5/5: deltoids, biceps, triceps, wrist flexion, wrist extension, fire behavior analyst, hip flexors, tibialis Anterior, quadriceps, toe extension (EHL), plantarflexion Motor examination - left side: 5/5: deltoids, biceps, triceps, wrist flexion, wrist extension, hip flexors, fire behavior analyst, quadriceps, tibialis Anterior, toe extension (EHL), plantarflexion Detailed sensory examination: intact Reflex and gait examination: intact Reflexes: Biceps: 2+, Triceps: 2+, Brachioradialis: 2+, Patella: 2+, Achilles: 2+ Mental Status Examination: awake, alert, oriented to person, oriented to place, oriented to time, follows commands appropriately, answers questions appropriately Cranial nerve examination: PERRL, EOMI, visual wilkes intact, sensory to face intact, mastication intact, no facial asymmetry is present, no dysarthria, hearing is intact symmetrically, soft palate elevates bilaterally upon phonation, flexes SCM and trapezius muscles symmetrically with full power, tongue protrudes midline, no atrophy or facial fasiculations present Cerebellar examination: no dysmetria, performs finger to nose and heel to gillespie symmetrically without ataxia, no gait ataxia, no difficulty with rapid alternating movements Results - Laboratory Findings CBC and BMP: 12/31/17 05:47 12/31/17 05:47 Abnormal lab findings: Abnormal lab results WBC 18.9 K/mcL (4.3-11.1) H 12/31/17 05:47 RBC 5.14 M/mcL (3.82-4.97) H 12/31/17 05:47 Hgb 15.8 g/dL (11.5-15.4) H 12/31/17 05:47 Hct 48.1 % (35.3-44.9) H 12/31/17 05:47 RDW 15.1 % (11.5-14.5) H 12/31/17 05:47 Plt Count 462 K/mcL (140-400) H 12/31/17 05:47 Neutrophils # 12.8 K/mcL (1.6-8.9) H 12/31/17 05:47 Lymphocytes # 4.8 K/mcL (0.6-4.6) H 12/31/17 05:47 Carbon Dioxide 22 mEq/L (23-29) L 12/31/17 05:47 BUN 24 mg/dL (6-20) H 12/31/17 05:47 Est GFR (Non-Af Amer) 51 (> 60) L 12/31/17 05:47 Glucose 123 mg/dL (70-105) H 12/31/17 05:47 Alkaline Phosphatase 159 Units/L (34-104) H 12/31/17 05:47 Troponin I 0.04 ng/mL (< 0.04) H* 12/30/17 21:13 Urine Ketones Trace mg/dL (Negative) H 12/28/17 22:50 Ur Leukocyte Esterase Small (Negative) H 12/28/17 22:50 Ur Squamous Epith Cells Many per lpf (None-Few) H 12/28/17 22:50 Ur Culture Indicated? NO. (NO) A 12/28/17 22:50 Consult Discharge Plan - Plan Instructions: Acute Kidney Injury (DC), Bipolar Disorder (DC), Sepsis (DC), Chronic Hypertension (DC), Acute Delirium (DC), Leukocytosis (DC), Anxiety (DC) Referrals: NONE,PCP [Primary Care Provider] - Prescriptions: amLODIPine [Norvasc] 5 mg PO DAILY #30 tablet Haloperidol [Haldol] 0.5 mg PO TID 45 Days tablet levETIRAcetam [Keppra] 500 mg PO DAILY #30 tablet Nystatin POWDER [Nystop] 1 appl TP BID 5 Days #1 bottle <Prashant Evans I - Last Filed: 01/05/18 12:56> Assessment and Plan (1) Delirium due to known physiological condition Status: Acute Pt was seen and examined, my medical decision was reviewed with the Resident Physician, I agree with the documented findings, disposition and treatment plas as described except to the extent set forth below Prashant Evans MD History of Present Illness HPI: Ms. Patel is a 57 year old female All Systems: The remainder of the systems were reviewed and are negative Physical Examination - Vital Signs Vital Signs: Initial Vital Signs Temp Pulse Resp BP Pulse Ox 98.3 F 73 18 159/93 98 12/28/17 15:58 12/28/17 15:58 12/28/17 15:58 12/28/17 15:58 12/28/17 15:58 Results - Laboratory Findings CBC and BMP: 01/03/18 05:58 01/03/18 05:58 Abnormal lab findings: Abnormal lab results WBC 19.7 K/mcL (4.3-11.1) H 01/03/18 05:58 RDW 14.9 % (11.5-14.5) H 01/03/18 05:58 Neutrophils # 13.5 K/mcL (1.6-8.9) H 01/03/18 05:58 Lymphocytes # 5.0 K/mcL (0.6-4.6) H 01/03/18 05:58 Platelet Estimate Slight increase (Normal) H 01/01/18 05:02 ESR 65 mm/hr (0-15) H 12/31/17 05:47 ABG pCO2 46 mmHg (35-45) H 01/01/18 16:27 ABG pO2 62 mmHg (85-104) L 01/01/18 16:27 ABG O2 Saturation 89 % (95-98) L 01/01/18 16:27 ABG Base Excess -3 mEq/L (-2 to 3) L 01/01/18 16:27 BUN 33 mg/dL (6-20) H 01/03/18 05:58 Est GFR (Non-Af Amer) 56 (> 60) L 01/03/18 05:58 BUN/Creatinine Ratio 33 (6-26) H 01/03/18 05:58 Glucose 108 mg/dL (70-105) H 01/03/18 05:58 POC Glucose 113 mg/dL (70-99) H 01/01/18 12:29 Alkaline Phosphatase 143 Units/L (34-104) H 01/01/18 15:42 Troponin I 0.04 ng/mL (< 0.04) H* 12/30/17 21:13 C-Reactive Protein 17 mg/L (Less than 10) H 01/01/18 15:34 Amylase 22 Units/L (29-103) L 01/01/18 15:34 Procalcitonin 0.48 ng/mL (<=0.07) H 01/01/18 15:34 Urine Clarity Cloudy (Clear) A 01/02/18 06:50 Urine Protein 30 mg/dL (Neg-Trace) H 01/02/18 06:50 Urine Bilirubin Small (Negative) H 01/02/18 06:50 Urine Microscopic RBC 3-5 per hpf (0-3) H 01/02/18 06:50 Urine Microscopic WBC 5-15 per hpf (0-3) H 01/02/18 06:50 Ur Squamous Epith Cells Many per lpf (None-Few) H 01/02/18 06:50 Ur Culture Indicated? NO. (NO) A 12/28/17 22:50
[2017-12-31] MEDS ORDERED: levETIRAcetam 500 MG/5 ML UDC PO SCH (14:30)
[2017-12-31] MEDS: levETIRAcetam 250 MG TABLET PO SCH (18:01)
[2017-12-31] MEDS: Baclofen 10 MG TABLET PO SCH ×2 (18:02→21:49)
[2018-01-01] MEDS: *HR* Heparin 5,000 UNIT/ML VIAL SQ SCH ×3 (05:07→17:31)
[2018-01-01 05:43] LABS: Basophils % 0.4 %; Eosinophils % 0.1 %; Mean Corpuscular Hemoglobin 31.2 pg (28.0-33.3)
[2018-01-01 05:45] LABS: Basophils # 0.1 K/mcL (0.0-0.2); Hematocrit 49.5 % (35.3-44.9); Hemoglobin 15.9 g/dL (11.5-15.4); Immature Granulocytes % 1.1 % (0-4); Lymphocytes # 5.9 K/mcL (0.6-4.6); Lymphocytes % 22.5 %; Mean Corpuscular HGB Conc 32.1 g/dL (31.6-35.5); Mean Corpuscular Volume 97.1 fL (83.0-100.0); Mean Platelet Volume 10.7 fL (9.4-12.4); Monocytes # 1.7 K/mcL (0.0-1.3); Monocytes % 6.4 %; Platelet Count 469 K/mcL (140-400); Red Cell Distribution Width 15.2 % (11.5-14.5); Segmented Neutrophils % 69.5 %
[2018-01-01 05:49] LABS: Neutrophils # 18.1 K/mcL (1.6-8.9)
[2018-01-01] MEDS: Aspirin 81 MG TAB.CHEW PO SCH (09:21)
[2018-01-01] MEDS: levETIRAcetam 250 MG TABLET PO SCH (09:22)
[2018-01-01] MEDS: Baclofen 10 MG TABLET PO SCH ×2 (09:22→12:13)
--- NOTE | 2018-01-01 10:43 | Internal Med Progress Note ---
<Natanael Man - Last Filed: 01/01/18 13:48> Hospitalist Progress Note - Exam Vitals: Temp Pulse Resp BP Pulse Ox 97.9 F 86 18 117/75 93 01/01/18 08:39 01/01/18 08:39 01/01/18 08:39 01/01/18 08:39 01/01/18 09:13 - Assessment and Plan (1) Elevated white blood cell count Current Visit: Yes Status: Acute (2) Suicidal behavior Current Visit: Yes Status: Chronic (3) Bipolar disorder Current Visit: Yes Status: Chronic (4) Delirium due to known physiological condition Current Visit: Yes Status: Resolved (5) Seizure disorder Current Visit: Yes Status: Chronic (6) HTN (hypertension) Current Visit: Yes Status: Chronic (7) Morbid obesity with BMI of 40.0-44.9, adult Current Visit: Yes Status: Chronic - Time Spent with Patient Total time spent is greater than 50% in coordination of care (as documented) at patient's floor/unit and/or counseling patient: Internal Medicine: Result - Labs CBC & Chem 7: 01/01/18 05:02 12/31/17 05:47 Labs: Short CBC 01/01/18 Range/Units 05:02 WBC 26.1 H (4.3-11.1) K/mcL Hgb 15.9 H (11.5-15.4) g/dL Hct 49.5 H (35.3-44.9) % Plt Count 469 H (140-400) K/mcL Neutrophils # 18.1 H (1.6-8.9) K/mcL - ABG Interpretation ABG results: PT/INR, D-dimer PT 12.0 Seconds (9.4-12.1) 12/31/17 05:47 - Impressions Impressions Chest X-Ray 01/01/18 07:50 IMPRESSION: No acute cardiopulmonary abnormality. D/ / Kanu Mcdermott MD / Kanu goss MD Interpreting Provider: Kanu Mcdermott MD Consult Discharge Plan - Plan Referrals: NONE,PCP [Primary Care Provider] - - Attending Attestation I examined this patient and my medical decision-making was reviewed with the Resident Physician on 01/01/18. I agree with the documented findings, dispos ition and treatment plan as described except to the extent set forth below. Ms Patel is currently admitted for HTN and persistent leukocytosis. Work up for infection has been negative. She remains moderate to high risk due to potential for worsening clinical status. Ms Patel is somnolent after being given Seroquel. No fever or chills. No rash or any overt source of infection. BP low and responded to fluids (after Seroquel given). No CP or SOB. Exam Alert but somnolent. Comfortable Mucus membranes dry Heart not tachy now Lungs clear now Abd soft now No edema I/P 1. Leukocytosis persists - ID to see today. Work up thus far negative. 2. Suicidal ideation - wanted to leave yesterday. [place] slip rewritten 3. HTN Further diagnoses and plan as above. <Delio Rodarte - Last Filed: 01/01/18 17:42> Hospitalist Progress Note - Encounter Date of Encounter: 01/01/18 Time of Encounter: 08:30 - Subjective Interval History: 01/01 Patient seen at the bedside this morning. ESR count was 65. Inspected her entire body to look for any evidence of any erythema or infection. There was evidence of fungal infection in her gluteal folds and I ordered some nystatin powder. Her white blood count is 26.1 as of this a.m. I ordered MRSA swab, UA, chest x-ray, urine culture and blood culture this morning. Patient had a hypotensive episode this afternoon , and was given 1L bolus 0.9% Nacl and started on maintenance fluid at 150/hr and the most recent read on BP is 103/65. She also has an oliguric DAVIDE , bladder scan showed 35 mL urine. 12/31 No acute events overnight. Patient is comfortably sitting on the couch when I met her this morning. she is back on her home medications Keppra and baclofen today and seraquel 25mg TID starting tomorrow. I was also informed that according to patient's PCP she attempted suicide 2 weeks ago by overdosing on Haldol, Nurse paged me this afternoon about her coming and taking her back home I spoke to the Mr. Fritz this p.m. and explained to her him that patient has a history of suicidal ideation and has a high white blood count, we are in the middle of investigating that . Patient's does not believe that the workup should takes that long. Had the nurse make a phone call to the [facility] and speak to [facility] . I was told that her history of suicidal ideation she should be pink slipped. I did so. 12/29 this is a 57 year old female past medical history of anxiety, depression, bipolar and psychosis who was admitted to the floor because of altered mental status, HTN and Leuokocytosis. She initially came to the psych unit because of supposedly a suicidal attempt, sent to the floor because of elevated blood pressure and leukocytosis. Workup was negative for any pathology in the chest x-ray, her UA showed small amount of leukocyte esterase. Most of the history was obtained from the patients . According to him, patient has been without her psych medications for a while (he couldn't specify if it was weeks or months) .He endorses that other than her Hx of anxiety , dperesion, bipolar disorders, and scoliosis she has no other medical problems. Patient has no prior sick contacts, no PMHx of renal problems, her thyroid workup was negative . Patient has not been complaining any symptoms like MORGAN, belly pain, diarrhea, dizziness. She denies any systemic signs like fever, shortness of breath, chest pain. - Exam Vitals: Temp Pulse Resp BP Pulse Ox 98.1 F 78 16 136/88 93 01/01/18 01:00 01/01/18 01:00 01/01/18 01:00 01/01/18 01:00 01/01/18 01:00 Exam: General appearance: Present: cooperative, A&O X 3, no acute distress, answers questions appropriately Exam: Awake, pleasant, resting comfortably in bed - Head Head exam: Present: atraumatic, normocephalic - Eye Eye exam: Present: pupil dilated, EOMI, conjuntiva pink, sclera anicteric - ENT ENT exam: Present: mucous membranes moist - Neck Neck exam general surgery: Present: supple, trachea midline. Absent: lymphadenopathy - Respiratory Respiratory exam: Latest neck CTAB. Absent: accessory muscle use, rales, rhonchi, wheezes - Cardiovascular Cardiovascular exam: Present: RRR, +S1, +S2. Absent: diastolic murmur, gallop, rubs, systolic murmur - GI/Abdominal GI/Abdominal exam: Present: normal bowel sounds, soft, no peritoneal signs. Absent: distended, tenderness - Extremities Exam Extremities exam: Present: warm, radial pulses palpable and symmetrical. Absent: calf tenderness, cyanotic, pedal edema - Neurological Exam Neurological exam: Present: CN II-XII intact, oriented X3, no focal deficits. Absent: pronater drift, facial droop, speech deficit - Psychiatric Psychiatric exam: Present: normal affect, normal mood - Skin Skin exam: Present: dry, warm, no rash - Assessment and Plan (1) Sepsis Current Visit: Yes Status: Acute Assessment and Plan: -Progressively increasing leukocytosis of 26.1, tachycardia in 100s as of this p.m. source of infection currently unclear. no obvious signs for any cellulitis or portal sites infection . Patient denies any sick contacts, no recent travel s, . With her increase in mature lymphocytes to 5.9 one cannot rule out the possibility of hematological disorders. malignancy cannot be ruled out totally. -Patient's most recent chest x-ray was pretty unremarkable. Her white blood count is trending up 14.7-> 18.9->26.1, ESR: 65, MRSA swab negative, Normal lactic acid. Repeat lactic acid pending - Blood , Sputum cultures and respiratory infection panel pending. -ID and hematology on board. Continue to monitor (2) Suicidal behavior Current Visit: Yes Status: Chronic Assessment and Plan: - Continues to bepink slipped because of episode of suicidal behavior 2 weeks ago when she overdosed on Haldol . Yesterday patient's was insisting over the phone that he would like to take the patient back home today, denies that patient never acted on her suicidal thoughts. On recommendations of psych, I had to pink slip the patient yesterday. - Anticipate psych eval once blood pressure and white blood count is better controlled (3) Bipolar disorder Current Visit: Yes Status: Chronic Assessment and Plan: Patient was started on Seroquel for her Hx of bipolar disorder . However patient became hypotensive and somnolent later this afternoon. We will put her Seroquel on hold till her blood pressure normalizes. She also has to history of epilepsy and was on Keppra 500mg and Seroquel 25 mg TID tomorrow (4) HTN (hypertension) Current Visit: Yes Status: Chronic Assessment and Plan: - Patient became very hypotensive this afternoon . However it is difficult tot ascertain if it was secondary to administration of Seroquel and baclofen or due to sepsis. In the context of her hypotensive state we are holding off on Lisinopril 10 mg, along with the antihypertensives . Patient is currently s/p a liter of fluid bolus and maintenance fluid at 150 mL's /hr. -Her most recent blood pressure is 102/58. (5) Morbid obesity with BMI of 40.0-44.9, adult Current Visit: Yes Status: Chronic Assessment and Plan: - Has a history of morbid obesity. - We will consel on better dietary choices on discharge. DVT Prophylaxis: Heparin subcutaneous TID - Time Spent with Patient Total time spent is greater than 50% in coordination of care (as documented) at patient's floor/unit and/or counseling patient: Internal Medicine: Result - Labs CBC & Chem 7: 01/01/18 15:42 01/01/18 13:11 Labs: Short CBC 01/01/18 Range/Units 05:02 WBC 26.1 H (4.3-11.1) K/mcL Hgb 15.9 H (11.5-15.4) g/dL Hct 49.5 H (35.3-44.9) % Plt Count 469 H (140-400) K/mcL Neutrophils # 18.1 H (1.6-8.9) K/mcL - ABG Interpretation ABG results: PT/INR, D-dimer PT 12.0 Seconds (9.4-12.1) 12/31/17 05:47 _ <Natanael Man - Last Filed: 01/01/18 13:48> (1) Elevated white blood cell count Qualifiers: Leukocytosis type: other Qualified Code(s): D72.828 - Other elevated white blood cell count (2) Suicidal behavior Qualifiers: Attempted self-injury: with attempted self-injury Qualified Code(s): T14.91XA - Suicide attempt, initial encounter (3) Bipolar disorder Qualifiers: Active/Remission status: remission status unspecified Qualified Code(s): F31.9 - Bipolar disorder, unspecified (6) HTN (hypertension) Qualifiers: Hypertension type: essential hypertension Qualified Code(s): I10 - Essential (primary) hypertension <Delio Rodarte - Last Filed: 01/01/18 17:42> (2) Suicidal behavior Qualifiers: Attempted self-injury: with attempted self-injury Qualified Code(s): T14.91XA - Suicide attempt, initial encounter (3) Bipolar disorder Qualifiers: Active/Remission status: remission status unspecified Qualified Code(s): F31.9 - Bipolar disorder, unspecified (4) HTN (hypertension) Qualifiers: Hypertension type: essential hypertension Qualified Code(s): I10 - Essential (primary) hypertension
[2018-01-01] MEDS ORDERED: 0.9 % Sodium Chloride 1,000 ML ONE (12:30)
[2018-01-01] MEDS ORDERED: 0.9 % Sodium Chloride 1,000 ML IVC ONE (12:31)
--- NOTE | 2018-01-01 13:02 | Neurology Progress Note ---
<Saúl Ash - Last Filed: 01/01/18 12:59> Date of Encounter: 01/01/18 Time of Encounter: 12:59 Assessment and Plan (1) Delirium due to known physiological condition Current Visit: Yes Status: Resolved Patient is alert and oriented to self, time, place, situation. At this point no new neurological evaluation, imaging is needed. She was restarted on Seroquel, Keppra, baclofen. Currently primary team is pursuing evaluation of elevated white blood cell count, ESR. neurology will sign off. (2) Seizure disorder Current Visit: Yes Status: Chronic Continue Keppra. (3) Elevated white blood cell count Current Visit: Yes Status: Acute Qualifiers: Leukocytosis type: other Qualified Code(s): D72.828 - Other elevated white blood cell count (4) Suicidal behavior Current Visit: Yes Status: Chronic as per psychiatry Qualifiers: Attempted self-injury: with attempted self-injury Qualified Code(s): T14.91XA - Suicide attempt, initial encounter (5) Bipolar disorder Current Visit: Yes Status: Chronic Qualifiers: Active/Remission status: remission status unspecified Qualified Code(s): F31.9 - Bipolar disorder, unspecified Subjective Principal diagnosis: suicidal behavior Interval history: No acute events overnight. Patient continues to be anxious. Objective - Constitutional Vitals: Temp Pulse Resp BP Pulse Ox 97.9 F 86 18 117/75 93 01/01/18 08:39 01/01/18 08:39 01/01/18 08:39 01/01/18 08:39 01/01/18 09:13 - Neurological Exam Sensorimotor examination: Present: intact Motor examination - right side: 5/5: deltoids, biceps, triceps, wrist flexion, wrist extension, medical support assistant, hip flexors, tibialis Anterior, quadriceps, toe extension (EHL), plantarflexion Motor examination - left side: 5/5: deltoids, biceps, triceps, wrist flexion, wrist extension, hip flexors, medical support assistant, quadriceps, tibialis Anterior, toe extension (EHL), plantarflexion Sensation intact: Present: intact Reflex and gait examination: intact Reflexes: Biceps: 2+, Triceps: 2+, Brachioradialis: 2+, Patella: 2+, Achilles: 2+ Mental Status Examination: Present: awake, alert, oriented to person, oriented to place, oriented to time, follows commands appropriately, answers questions appropriately Cranial nerve examination: Present: PERRL, EOMI, visual wilkes intact, sensory to face intact, mastication intact, no facial asymmetry is present, no dysarthria, hearing is intact symmetrically, soft palate elevates bilaterally upon phonation, flexes SCM and trapezius muscles symmetrically with full power, tongue protrudes midline, no atrophy or facial fasiculations present Cerebellar examination: Present: no dysmetria, performs finger to nose and heel to gillespie symmetrically without ataxia, no gait ataxia, no difficulty with rapid alternating movements Results - Laboratory Findings CBC and BMP: 01/01/18 05:02 12/31/17 05:47 Abnormal lab findings: Abnormal lab results WBC 26.1 K/mcL (4.3-11.1) H 01/01/18 05:02 RBC 5.10 M/mcL (3.82-4.97) H 01/01/18 05:02 Hgb 15.9 g/dL (11.5-15.4) H 01/01/18 05:02 Hct 49.5 % (35.3-44.9) H 01/01/18 05:02 RDW 15.2 % (11.5-14.5) H 01/01/18 05:02 Plt Count 469 K/mcL (140-400) H 01/01/18 05:02 Neutrophils # 18.1 K/mcL (1.6-8.9) H 01/01/18 05:02 Lymphocytes # 5.9 K/mcL (0.6-4.6) H 01/01/18 05:02 Monocytes # 1.7 K/mcL (0.0-1.3) H 01/01/18 05:02 Platelet Estimate Slight increase (Normal) H 01/01/18 05:02 ESR 65 mm/hr (0-15) H 12/31/17 05:47 Carbon Dioxide 22 mEq/L (23-29) L 12/31/17 05:47 BUN 24 mg/dL (6-20) H 12/31/17 05:47 Est GFR (Non-Af Amer) 51 (> 60) L 12/31/17 05:47 Glucose 123 mg/dL (70-105) H 12/31/17 05:47 Alkaline Phosphatase 159 Units/L (34-104) H 12/31/17 05:47 Troponin I 0.04 ng/mL (< 0.04) H* 12/30/17 21:13 Urine Ketones Trace mg/dL (Negative) H 12/28/17 22:50 Ur Leukocyte Esterase Small (Negative) H 12/28/17 22:50 Ur Squamous Epith Cells Many per lpf (None-Few) H 12/28/17 22:50 Ur Culture Indicated? NO. (NO) A 12/28/17 22:50 Consult Discharge Plan - Plan Referrals: NONE,PCP [Primary Care Provider] - <Prashant Evans I - Last Filed: 01/01/18 14:02> Assessment and Plan (1) Delirium due to known physiological condition Current Visit: Yes Status: Resolved Pt was seen and examined, my medical decision was reviewed with the Resident Physician, I agree with the documented findings, disposition and treatment plas as described except to the extent set forth below No active neurological issue no evidence of any new seizures she is on quite a few medications for her behavioral issues suggest to follow up with psychiatry We will sign off call if needed Prashant Evans MD Objective - Constitutional Vitals: Temp Pulse Resp BP Pulse Ox 97.9 F 86 18 92/62 93 01/01/18 08:39 01/01/18 08:39 01/01/18 08:39 01/01/18 13:57 01/01/18 09:13 Results - Laboratory Findings CBC and BMP: 01/01/18 05:02 12/31/17 05:47 Abnormal lab findings: Abnormal lab results WBC 26.1 K/mcL (4.3-11.1) H 01/01/18 05:02 RBC 5.10 M/mcL (3.82-4.97) H 01/01/18 05:02 Hgb 15.9 g/dL (11.5-15.4) H 01/01/18 05:02 Hct 49.5 % (35.3-44.9) H 01/01/18 05:02 RDW 15.2 % (11.5-14.5) H 01/01/18 05:02 Plt Count 469 K/mcL (140-400) H 01/01/18 05:02 Neutrophils # 18.1 K/mcL (1.6-8.9) H 01/01/18 05:02 Lymphocytes # 5.9 K/mcL (0.6-4.6) H 01/01/18 05:02 Monocytes # 1.7 K/mcL (0.0-1.3) H 01/01/18 05:02 Platelet Estimate Slight increase (Normal) H 01/01/18 05:02 ESR 65 mm/hr (0-15) H 12/31/17 05:47 Carbon Dioxide 22 mEq/L (23-29) L 12/31/17 05:47 BUN 24 mg/dL (6-20) H 12/31/17 05:47 Est GFR (Non-Af Amer) 51 (> 60) L 12/31/17 05:47 Glucose 123 mg/dL (70-105) H 12/31/17 05:47 Alkaline Phosphatase 159 Units/L (34-104) H 12/31/17 05:47 Troponin I 0.04 ng/mL (< 0.04) H* 12/30/17 21:13 Urine Ketones Trace mg/dL (Negative) H 12/28/17 22:50 Ur Leukocyte Esterase Small (Negative) H 12/28/17 22:50 Ur Squamous Epith Cells Many per lpf (None-Few) H 12/28/17 22:50 Ur Culture Indicated? NO. (NO) A 12/28/17 22:50
--- NOTE | 2018-01-01 13:28 | Infectious Disease Consult ---
Date of Encounter: 01/01/18 Time of Encounter: 13:28 Assessment and Plan (1) Sepsis Status: Suspected Assessment and plan: - Suspected sepsis with findings of Leukocytosis of 26.1, tachycardia in 110s. - Source: unclear - Infective agent: unknown - Lactic acid 0.9 on 12/30, repeated to 1.4 on 01/01 - ESR of 65 on 01/01 - Patient was noted to be hypotensive this afternoon in 90s/60s and is currently receiving fluids. Afebrile since presentation, Tmax 100.0 - Patient reportedly had beg bugs per nursing report. Unclear if infection at this point. Possible rheum vs inflammation vs malignancy ROS unobtainable during interview this afternoon due to hypersomulence. Labs show no evidence of UTI but neutrophil predominance on cbc differential. WBC most recently 26.1 which is uptrending from 18.9/20.6/14.8.. 18.7 on presentation Blood cultures on 12/30 NG x2, 01/01 x1 Flu swab 12/30 negative. CXR on 12/28 as well as 01/01 show no acute process CTA performed 12/30 showed no acute pulmonary abnormality or PE ROS per nursing and primary team negative for cough, nausea, diarrhea, urinary symptoms There is a strong possibility that there is not an infectious etiology to tachycardia with leukocytosis Plan - No clear indication for antibiotics at this time - Will obtain labs to evaluate for alternative etiologies - Inflammatory/ Rheum workup: RAHEEM, RF, CRP in addition to ESR of 65. Amylase/lipase to r/o pancreatitis. CK and LDH to r/o rhabdo. - Infectious: procalcitonin, HIV. Will hold off on additional imaging and monitor. Will hopefully be able to obtain a ROS soon. - Malignancy: Peripheral Blood smear. Appreciate oncology recommendations Please alert ID team if patient spikes elevated temp of >100.0 and start empiric antibiotics. Qualifiers: Sepsis type: sepsis due to unspecified organism Qualified Code(s): A41.9 - Sepsis, unspecified organism (2) Leukocytosis Status: Acute Assessment and plan: Persistent leukocytosis of unclear etiology - Lower suspicion of infectious etiology. Differential includes reactive from suicide attempt vs inflammatory (rheum, vasculitis), infectious vs malignancy - WBC of 26.1 today which is uptrending from 18 which suggests more chronic etiology. - Meets 2/4 SIRS criteria as above. LA wnl. - No obvious source of infection and therefore will hold off on abx for now. May also be a role of hemoconcentration as all cell lines are elevated and patient has reportedly had very poor PO intake due to paranoia of poisoning. She is currently receiving IVF boluses for hypotension. Will keep monitoring labs after fluids. Qualifiers: Leukocytosis type: other Qualified Code(s): D72.828 - Other elevated white blood cell count (3) Encephalopathy Status: Acute Assessment and plan: - Possibly medication induced vs less likely infectious - Patient is somulent on exam - Restarted on home seroquel this AM - Hypotensive, other vitals wnl. Labs as above Will continue to monitor for improvement of mental status as medications are he ld with primary team. (4) HTN (hypertension) Status: Chronic Assessment and plan: - Better controlled with addition of chlorthaladone and lisinopril - Notably hypotensive this afternoon at 97/63. - unclear if this is medication side effect vs sepsis. - Currently receiving fluid boluses. Will monitor and defer to primary team Qualifiers: Hypertension type: essential hypertension Qualified Code(s): I10 - Essential (primary) hypertension (5) Erythrocytosis Status: Resolved Assessment and plan: - H/H 15.9/49.5, no previous visits to compare. wnl on presentation at 14.5/45.4 - Unclear etiology but possibly related to hemoconcentration. - All cell lines elevated. - Heme/Onc consulted, appreciate recommendations. (6) Thrombocytosis Status: Acute Assessment and plan: Platelets of 469 this AM - Unclear etiology whether reactive secondary to infection vs concentration - heme/onc following. Infectious Disease HPI - Data of Consult Patient: new to practice Consult date: 01/01/18 Requesting Physician: Natanael Man DO Primary Care Provider: PCP NONE - Consult Narrative Reason for consult: leukocytosis History of present illness: Ms. Patel is a 57 year old female presented to the emergency department with complaint of failed suicide attempt and altered mental status. Infectious disease has been consulted for a persistent leukocytosis. According to patient's , patient took a large number of prescription medication 2 days prior to presentation. stated that home medication includes lorazepam, Wellbutrin, Depakote, Seroquel. Per ER documentation, patient has been off medication for several years until 2 days prior when medication was restarted by psychiatrist. Patient was additionally brought to emergency department due to altered mental status. Patient was notably poorly responsive on presentation to the emergency room and reportedly collapsed trying to get out of car. Remainder of review of systems was difficult to obtain due to mental status. She was admitted to psychiatric unit for further evaluation of suicidal ideation and attempt. She does have a past medical history of anxiety with depression, bipolar disorder, seizures, hypertension. She does also a history of suicide attempts. On presentation to the emergency room, vital signs are significant for a respiratory rate of 20 and blood pressure of 167/96. Laboratory results are significant for leukocytosis of 18.7, arterial blood gas showing mild respiratory acidosis with pH of 7.36, alkaline phosphatase 193 remainder of labs are within normal limits including urinalysis, urine drug screen, salicylate and acetaminophen levels. Hospitalist service was consulted shortly after admission due to concerns for worsening leukocytosis as well as hypertension. Blood pressure remained elevated in the 160s over 100s with a maximum of 180/125 on 12/29. She was also noted to have elevated temperatures with a MAXIMUM TEMPERATURE of 100.0. Leukocytosis has remained elevated ranging from 14 with most current reading of 26.1. Chest x-rays were obtained and showed no acute process. CTA was performed on 12/30 to rule out pulmonary embolism and was negative for acute process. Flu some was performed on 12/30 which was negative. Blood cultures drawn on 12/28 as well as 01/01 show no growth. ESR was elevated at 65. Also notable was erythrocytosis with H/H of 15.9/49.5 and thrombocytosis at 469. During today's examination, patient is mostly somnolent but is arousable to tactile stimuli briefly. She is able to demonstrate that she is alert and oriented 2 but quickly falls back asleep. No family is present at bedside to provide additional history. Review of systems therefore is unobtainable. Of no te, home medication of Seroquel was restarted this morning and patient was noted to be hypotensive in the 90s over 60s at approximately 11 AM this morning. I did discuss with the primary team as well as patient's nurse that she was more responsive earlier this morning as well as yesterday. Patient had been denying any symptoms of chest pain, shortness of breath, cough, dysuria, urinary frequency, diarrhea, abdominal pain, rashes, fevers, chills however she is not able to tell me this personally. CC: Natanael Man, DO Past Med Surg Social Fam HX - Past Medical History Medical history: hypertension, seizures Additional medical history: Pt denies HTN but confirms seizures Psychiatric history: bipolar - Social History Smoking Status: Current every day smoker Alcohol use: none Drug use: none Infectious Disease-CN:Meds Baclofen 20 mg PO Q6H 12/29/17 [History] Divalproex Sodium [Depakote] 125 mg PO BID 12/29/17 [History] Indomethacin 75 mg PO BID 12/29/17 [History] LORazepam [Lorazepam] 2 mg PO TID PRN 12/29/17 [History] Metoclopramide [Reglan] 10 mg PO QIDAC 12/29/17 [History] RX: BuPROPion SR (12 HR) [Wellbutrin SR] 100 mg PO BID 12/29/17 [History] RX: Diclofenac Potassium 50 mg PO TID 12/29/17 [History] RX: Nitroglycerin [Nitrostat] 0.4 mg SL PRN PRN 12/29/17 [History] RX: Omeprazole [PriLOSEC] 40 mg PO DAILY 12/29/17 [History] RX: Quetiapine Fumarate [Seroquel] 25 mg PO TID 12/29/17 [History] Allergy/AdvReac Type Severity Reaction Status Date / Time No Known Allergies Allergy Verified 12/29/17 09:31 ROS unobtainable: due to mental status Exam - Constitutional Vitals: Temp Pulse Resp BP Pulse Ox 97.9 F 86 18 117/75 93 01/01/18 08:39 01/01/18 08:39 01/01/18 08:39 01/01/18 08:39 01/01/18 09:13 Exam: Gen.: Vitals noted. No acute distress. AAOx2. Difficult to arouse but does answer some questions after tactile stimuli. Hypersomnolent. HEENT: PERRL/EOMI, pupils dilated at approximately 7 mm, oropharynx clear, Normocephalic, atraumatic, mucous membranes Cardiac: RRR, no murmur, +S1/S2 Pulmonary: CTA bilaterally, no wheezes, rales or rhonchi, equal chest expansion Abdomen: soft, does not grimace to palpation of abdomen, BS noted, no guarding, no rebound. MSK: no joint swelling noted Extremities: no BLE edema, no cyanosis or clubbing. Multiple punctate lesions covering bilateral lower extremities, noninfected appearing. Scratch munson on left leg. Burn on left distal second finger, healing without evidence of discharge, purulence, infection. Skin: Fungal infection of groin Neuro: A&Ox2, moves all extremities, no focal deficits, hypersomnolent Psych: Unable to assess secondary to mental status Infectious Disease CN: Results - Labs CBC & Chem 7: 01/02/18 05:03 01/02/18 05:03 Cultures: Cultures 01/01/18 08:46 Blood Culture - Preliminary Peripheral Venipuncture Culture is incubating and being continuously monito red for growth. Final report to follow. 12/30/17 09:06 Influenza Types A,B Antigen - Final Nasopharyngeal 12/28/17 22:01 Blood Culture - Preliminary Peripheral Venipuncture Culture is incubating and being continuously monitored for growth. Final report to follow. 12/28/17 21:49 Blood Culture - Preliminary Peripheral Venipuncture Culture is incubating and being continuously monitored for growth. Final report to follow. Serology: Serology 01/01/18 12/28/17 Range/Units 08:00 22:50 Urine Color Yellow (Yellow) Urine Clarity Clear (Clear) Urine pH 7.5 (5.0-8.0) pH Units Ur Specific [place] 1.016 (1.010-1.025) Urine Protein Negative (Neg-Trace) mg/dL Urine Glucose (UA) Normal (Normal) mg/dL Urine Ketones Trace H (Negative) mg/dL Urine Blood Negative (Negative) Urine Nitrite Negative (Negative) Urine Bilirubin Negative (Negative) Urine Urobilinogen Normal (Normal) mg/dL Ur Leukocyte Esterase Small H (Negative) Urine Microscopic RBC 0-3 (0-3) per hpf Urine Microscopic WBC 0-3 (0-3) per hpf Ur Squamous Epith Cells Many H (None-Few) per lpf Urine Bacteria None Seen (None-Few) per hpf Hyaline Casts None Seen (None-Few) per lpf Ur Culture Indicated? NO. A (NO) Nasal Screen MRSA (PCR) Negative (Negative) Consult Discharge Plan - Plan Referrals: NONE,PCP [Primary Care Provider] - - Attending Attestation I examined this patient and my medical decision-making was reviewed with the Resident Physician. I agree with the documented findings, disposition and treatment plan as described except to the extent set forth below. This is an addendum to original report dictated by resident physician. Please refer to resident's note for full detail. Patient is a 57-year-old woman who has been here for quite a few days for altered mental status and multiple psychiatric issues we were asked to evaluate her for persistent leukocytosis that is getting progressively worse. I had a long discussion with the hospitalist team. A Extensive review of system and physical exam was done and we have no obvious source of infection. Her only obvious abnormalities are leukocytosis and elevat ed ESR. She also had 3 small lesions on her lower extremities which appears to be mosquito or bed bug bites. All her cultures, respiratory infectious panel, MRSA screen, blood cultures, imaging have been all negative so far. Etiology for her persistent leukocytosis is not clear. Physical exam is really unremarkable for any signs of meningitis. Patient was awake and she did not answer all my questions had to keep monitoring her to stay awake. She appears to have had quite a few medications that can make her groggy. My biggest concerns would be elevated ESR, leukocytosis and almost and oriented. Acute kidney injury. I am not sure if there is an nephric process going on or post renal obstruction or just severe dehydration. Recommend getting CT abdomen and pelvis and recommend a complete urinalysis and urine culture. I did discuss that with Dr. Man. Okay to just to give her 1 dose of antibiotic while we get the rest of her workup done.
[2018-01-01 14:18] LABS: Potassium 3.9 mEq/L (3.5-5.1)
[2018-01-01 14:32] LABS: Calcium 9.5 mg/dL (8.6-10.3)
[2018-01-01] MEDS ORDERED: Vancomycin 1 EACH in 0.9 % Sodium Chloride 250 ML IVPB SCH (16:00)
[2018-01-01 16:26] LABS: Basophils # 0.1 K/mcL (0.0-0.2); Basophils % 0.4 %; Eosinophils % 0.2 %; Hematocrit 45.5 % (35.3-44.9); Immature Granulocytes % 0.9 % (0-4); Lymphocytes # 5.9 K/mcL (0.6-4.6); Lymphocytes % 23.6 %; Mean Corpuscular HGB Conc 31.2 g/dL (31.6-35.5); Mean Corpuscular Hemoglobin 30.7 pg (28.0-33.3); Mean Corpuscular Volume 98.3 fL (83.0-100.0); Mean Platelet Volume 10.6 fL (9.4-12.4); Monocytes # 1.5 K/mcL (0.0-1.3); Neutrophils # 17.2 K/mcL (1.6-8.9); Platelet Count 396 K/mcL (140-400); Red Blood Count 4.63 M/mcL (3.82-4.97); Red Cell Distribution Width 15.5 % (11.5-14.5); Segmented Neutrophils % 68.9 %
[2018-01-01 16:30] LABS: ABG Base Excess -3 mEq/L (-2 to 3); ABG HCO3 24 mEq/L (21-27); ABG Oxygen Saturation 89 % (95-98); ABG PCO2 46 mmHg (35-45); ABG PH 7.32 pH Units (7.32-7.45); ABG PO2 62 mmHg (85-104); ABG TCO2 25 mEq/L (20-26)
[2018-01-01 16:33] LABS: Hemoglobin 14.2 g/dL (11.5-15.4)
[2018-01-01 16:35] LABS: Prothrombin Time 11.6 Seconds (9.4-12.1)
[2018-01-01 16:37] LABS: Activated Partial Thrombo Time 31.3 Seconds (26.0-36.0)
[2018-01-01 16:44] LABS: Amylase 22 Units/L (29-103); C-Reactive Protein 17 mg/L (Less than 10); Creatine Kinase 43 Units/L (30-223); Lactate Dehydrogenase 140 Units/L (140-271); Lipase 13 Units/L (11-82)
[2018-01-01 16:44] LABS: Albumin 3.5 g/dL (3.5-5.7); Albumin/Globulin Ratio 1.2 (1.1-2.2); Bilirubin,Direct 0.1 mg/dL (0.0-0.2); Bilirubin,Indirect 0.3 mg/dL (0.0-1.2); Bilirubin,Total 0.4 mg/dL (0.3-1.0); Total Protein 6.5 g/dL (6.4-8.9)
--- NOTE | 2018-01-01 17:34 | Oncology Inp Consult Note ---
<Monica Kimble L - Last Filed: 01/01/18 22:38> Date of Encounter: 01/01/18 Time of Encounter: 17:00 Assessment and Plan (1) Leukocytosis Status: Acute Assessment and plan: Neutrophil predominant leukocytosis (with concomitant lymphocytosis and monocytosis) Hgb and plt count are normal Unsure of chronicity of lab values as there are no comparisons, WBC has been labile at times but overall trending upward Abdominal imaging-pending ID consulted for sepsis criteria- no clear infectious etiology/agent has been identified thus far,therefore, no ATB therapy has been initiated Patient has been afebrile, TMAX 100.1 on admission Labs this afternoon indicate DAVIDE? Significant increase from this am, recommend clarification of accuracy Plan: At this time we will check and LDH with AM labs and monitor for blood smear interpretation to assess cell morphology/indications of reactive process vs. hematologic ID has initiated Rheum workup Given information we have thus far, this does not appear to be a hematologic condition and more so favors a reactive leukocytosis, therefore, we will hold on further hematologic workup at this time as we continue to monitor cell count trends Reactive etiology may be secondary to medication/recent suicidal attempt, continue to look for infectious cause, appreciate recommendations per ID Hematologic etiology would not explain her symptom presentation or encephalopathy otherwise, recommend continued workup per hospitalist/ID team We will continue to follow with pending results above and WBC count monitoring Qualifiers: Leukocytosis type: other Qualified Code(s): D72.828 - Other elevated white blood cell count - Data of Consult Requesting Physician: Natanael Man DO Primary Care Provider: PCP NONE - Consult Narrative Reason for consult: Leukocytosis History of present illness: Ms. Patel is a 57 year old female with past medical history significant for anxiety with depression, bipolar disorder, seizures, hypertension and history of suicide attempts. She presented to [facility] ER on 12/28/2017 for altered mental status after another recent failed suicide attempt. Information and history as patient is presently somnolent and does not provide any history. According to patient's , patient took a large number of prescription medication 2 days prior to presentation. stated that home medication includes lorazepam, Wellbutrin, Depakote, Seroquel. Per ER documentation, patient has been off medication for several years until 2 days prior when medication was restarted by psychiatrist. She was admitted to the psychaitric unit however later admitted to inpatient medical unit for hypertension and leukocytosis. ID as been consulted in light of sepsis criteria. Per ID's note, patient does not have a clear source or agent to indicate any infectious etiology, ATB are not ordered at this time Past Med Surg Social Fam HX - Past Medical History Medical history: hypertension, seizures Additional medical history: Pt denies HTN but confirms seizures Psychiatric history: bipolar - Social History Smoking Status: Current every day smoker Alcohol use: none Drug use: none Medications and Allergies Baclofen 20 mg PO Q6H 12/29/17 [History] Divalproex Sodium [Depakote] 125 mg PO BID 12/29/17 [History] Indomethacin 75 mg PO BID 12/29/17 [History] LORazepam [Lorazepam] 2 mg PO TID PRN 12/29/17 [History] Metoclopramide [Reglan] 10 mg PO QIDAC 12/29/17 [History] RX: BuPROPion SR (12 HR) [Wellbutrin SR] 100 mg PO BID 12/29/17 [History] RX: Diclofenac Potassium 50 mg PO TID 12/29/17 [History] RX: Nitroglycerin [Nitrostat] 0.4 mg SL PRN PRN 12/29/17 [History] RX: Omeprazole [PriLOSEC] 40 mg PO DAILY 12/29/17 [History] RX: Quetiapine Fumarate [Seroquel] 25 mg PO TID 12/29/17 [History] Allergy/AdvReac Type Severity Reaction Status Date / Time No Known Allergies Allergy Verified 12/29/17 09:31 ROS unobtainable: due to mental status Oncology - Exam - Constitutional Vitals: Temp Pulse Resp BP Pulse Ox 97.7 F 76 16 127/73 95 01/01/18 16:47 01/01/18 17:17 01/01/18 17:17 01/01/18 17:17 01/01/18 17:17 General appearance: no acute distress, no febrile Exam: somnolent and difficult to arouse/inattentive - Head Head exam: Present: atraumatic - ENT ENT exam: Present: mucous membranes moist - Respiratory Respiratory exam: Present: CTAB. Absent: respiratory distress - Cardiovascular Cardiovascular exam: Present: RRR, +S1, +S2 - GI/Abdominal GI/Abdominal exam: Present: normal bowel sounds, soft. Absent: tenderness - Neurological Exam Neurological exam: Present: altered Additional comments: somnolent, does not follow commands/unable to assess - Psychiatric Additional comments: unable to assess - Skin Skin exam: Present: dry, normal color, warm Additional comments: erythematous lesions noted to BLE Consult Discharge Plan - Plan Referrals: NONE,PCP [Primary Care Provider] - <Rigoberto Angulo - Last Filed: 01/02/18 08:42> - Data of Consult Requesting Physician: Natanael Man DO Primary Care Provider: PCP NONE - Consult Narrative History of present illness: Ms. Patel is a 57 year old female Oncology - Exam - Constitutional Vitals: Temp Pulse Resp BP Pulse Ox 98.2 F 96 16 161/82 96 01/02/18 06:59 01/02/18 06:59 01/02/18 06:59 01/02/18 06:59 01/02/18 06:59 Oncology - Results Labs: 01/02/18 01/02/18 01/02/18 06:50 05:03 05:03 WBC RBC Hgb Hct MCV MCH MCHC RDW Plt Count MPV Immature Gran % Seg Neutrophils % Lymphocytes % Monocytes % Eosinophils % Basophils % Neutrophils # Lymphocytes # Monocytes # Eosinophils # Basophils # Platelet Estimate Smear Path Review ESR PT INR APTT Sample Site ABG pH ABG pCO2 ABG pO2 ABG HCO3 ABG Total CO2 ABG O2 Saturation ABG Base Excess Petey Test O2 Delivery Device Inspired O2 Sodium 138 Potassium 4.1 Chloride 111 H Carbon Dioxide 19 L BUN 43 H Creatinine 2.07 H Est GFR ( Amer) 30 L Est GFR (Non-Af Amer) 25 L BUN/Creatinine Ratio 21 Glucose 101 POC Glucose Calculated Osmolality 297 Lactic Acid Calcium 8.5 L Phosphorus Magnesium Total Bilirubin Direct Bilirubin Indirect Bilirubin AST ALT Alkaline Phosphatase Lactate Dehydrogenase 147 Creatine Kinase Troponin I C-Reactive Protein Serum Total Protein Albumin Globulin Albumin/Globulin Ratio Amylase Lipase TSH Free T4 Urine Color Yellow Urine Clarity Cloudy A Urine pH 5.5 Ur Specific [place] 1.017 Urine Protein 30 H Urine Glucose (UA) Normal Urine Ketones Negative Urine Blood Negative Urine Nitrite Negative Urine Bilirubin Small H Urine Urobilinogen Normal Ur Leukocyte Esterase Negative Urine Microscopic RBC 3-5 H Urine Microscopic WBC 5-15 H Ur Squamous Epith Cells Many H Urine Bacteria None Seen Hyaline Casts Few Ur Culture Indicated? Nasal Screen MRSA (PCR) Urine Opiates Screen Ur Barbiturates Screen Ur Phencyclidine Scrn Ur Amphetamines Screen U Benzodiazepines Scrn Urine Cocaine Screen U Marijuana (THC) Screen Ur Drug Screen Interp Rheumatoid Factor Chlamy pneumoniae PCR Adenovirus (PCR) B. pertussis DNA (PCR) B.parapertussis DNA PCR Coronavirus OC43 (PCR) Coronavirus HKU1 (PCR) Coronavirus 229E (PCR) Coronavirus NL63 (PCR) Human Metapneumovir PCR Influenza A (H1) PCR Influ A (H1N1/09) PCR Influenza A (H3) PCR Influenza A Untype (PCR) Influenza Type B (PCR) M.pneumoniae DNA (PCR) Parainfluenza 1 (PCR) Parainfluenza 2 (PCR) Parainfluenza 3 (PCR) Parainfluenza 4 (PCR) RSV (PCR) Entero/Rhino (PCR) Specimen Rejected 01/02/18 01/01/18 01/01/18 05:03 16:27 16:17 WBC 21.5 H RBC 4.53 Hgb 14.0 Hct 45.0 H MCV 99.3 MCH 30.9 MCHC 31.1 L RDW 15.2 H Plt Count 331 MPV 10.7 Immature Gran % 0.8 Seg Neutrophils % 72.7 Lymphocytes % 21.1 Monocytes % 4.9 Eosinophils % 0.1 Basophils % 0.4 Neutrophils # 15.6 H Lymphocytes # 4.5 Monocytes # 1.1 Eosinophils # 0.0 Basophils # 0.1 Platelet Estimate Smear Path Review ESR PT INR APTT Sample Site R Brach ABG pH 7.32 ABG pCO2 46 H ABG pO2 62 L ABG HCO3 24 ABG Total CO2 25 ABG O2 Saturation 89 L ABG Base Excess -3 L Petey Test N/A O2 Delivery Device Room Air Inspired O2 21.0 Sodium Potassium Chloride Carbon Dioxide BUN Creatinine Est GFR ( Amer) Est GFR (Non-Af Amer) BUN/Creatinine Ratio Glucose POC Glucose Calculated Osmolality Lactic Acid Calcium Phosphorus Magnesium Total Bilirubin Direct Bilirubin Indirect Bilirubin AST ALT Alkaline Phosphatase Lactate Dehydrogenase Creatine Kinase Troponin I C-Reactive Protein Serum Total Protein Albumin Globulin Albumin/Globulin Ratio Amylase Lipase TSH Free T4 Urine Color Urine Clarity Urine pH Ur Specific [place] Urine Protein Urine Glucose (UA) Urine Ketones Urine Blood Urine Nitrite Urine Bilirubin Urine Urobilinogen Ur Leukocyte Esterase Urine Microscopic RBC Urine Microscopic WBC Ur Squamous Epith Cells Urine Bacteria Hyaline Casts Ur Culture Indicated? Nasal Screen MRSA (PCR) Urine Opiates Screen Ur Barbiturates Screen Ur Phencyclidine Scrn Ur Amphetamines Screen U Benzodiazepines Scrn Urine Cocaine Screen U Marijuana (THC) Screen Ur Drug Screen Interp Rheumatoid Factor Chlamy pneumoniae PCR Not Detected Adenovirus (PCR) Not Detected B. pertussis DNA (PCR) Not Detected B.parapertussis DNA PCR Not Detected Coronavirus OC43 (PCR) Not Detected Coronavirus HKU1 (PCR) Not Detected Coronavirus 229E (PCR) Not Detected Coronavirus NL63 (PCR) Not Detected Human Metapneumovir PCR Not Detected Influenza A (H1) PCR Not Detected Influ A (H1N1/09) PCR Not Detected Influenza A (H3) PCR Not Detected Influenza A Untype (PCR) Not Detected Influenza Type B (PCR) Not Detected M.pneumoniae DNA (PCR) Not Detected Parainfluenza 1 (PCR) Not Detected Parainfluenza 2 (PCR) Not Detected Parainfluenza 3 (PCR) Not Detected Parainfluenza 4 (PCR) Not Detected RSV (PCR) Not Detected Entero/Rhino (PCR) Not Detected Specimen Rejected 01/01/18 01/01/18 01/01/18 15:42 15:42 15:42 WBC 25.0 H RBC 4.63 Hgb 14.2 D Hct 45.5 H MCV 98.3 MCH 30.7 MCHC 31.2 L RDW 15.5 H Plt Count 396 MPV 10.6 Immature Gran % 0.9 Seg Neutrophils % 68.9 Lymphocytes % 23.6 Monocytes % 6.0 Eosinophils % 0.2 Basophils % 0.4 Neutrophils # 17.2 H Lymphocytes # 5.9 H Monocytes # 1.5 H Eosinophils # 0.0 Basophils # 0.1 Platelet Estimate Smear Path Review ESR PT 11.6 INR 1.0 APTT 31.3 Sample Site ABG pH ABG pCO2 ABG pO2 ABG HCO3 ABG Total CO2 ABG O2 Saturation ABG Base Excess Petey Test O2 Delivery Device Inspired O2 Sodium Potassium Chloride Carbon Dioxide BUN Creatinine Est GFR ( Amer) Est GFR (Non-Af Amer) BUN/Creatinine Ratio Glucose POC Glucose Calculated Osmolality Lactic Acid Calcium Phosphorus Magnesium Total Bilirubin 0.4 Direct Bilirubin 0.1 Indirect Bilirubin 0.3 AST 17 ALT 20 Alkaline Phosphatase 143 H Lactate Dehydrogenase Creatine Kinase Troponin I C-Reactive Protein Serum Total Protein 6.5 Albumin 3.5 Globulin 3.0 Albumin/Globulin Ratio 1.2 Amylase Lipase TSH Free T4 Urine Color Urine Clarity Urine pH Ur Specific [place] Urine Protein Urine Glucose (UA) Urine Ketones Urine Blood Urine Nitrite Urine Bilirubin Urine Urobilinogen Ur Leukocyte Esterase Urine Microscopic RBC Urine Microscopic WBC Ur Squamous Epith Cells Urine Bacteria Hyaline Casts Ur Culture Indicated? Nasal Screen MRSA (PCR) Urine Opiates Screen Ur Barbiturates Screen Ur Phencyclidine Scrn Ur Amphetamines Screen U Benzodiazepines Scrn Urine Cocaine Screen U Marijuana (THC) Screen Ur Drug Screen Interp Rheumatoid Factor Chlamy pneumoniae PCR Adenovirus (PCR) B. pertussis DNA (PCR) B.parapertussis DNA PCR Coronavirus OC43 (PCR) Coronavirus HKU1 (PCR) Coronavirus 229E (PCR) Coronavirus NL63 (PCR) Human Metapneumovir PCR Influenza A (H1) PCR Influ A (H1N1/09) PCR Influenza A (H3) PCR Influenza A Untype (PCR) Influenza Type B (PCR) M.pneumoniae DNA (PCR) Parainfluenza 1 (PCR) Parainfluenza 2 (PCR) Parainfluenza 3 (PCR) Parainfluenza 4 (PCR) RSV (PCR) Entero/Rhino (PCR) Specimen Rejected 01/01/18 01/01/18 01/01/18 15:34 15:34 14:06 WBC RBC Hgb Hct MCV MCH MCHC RDW Plt Count MPV Immature Gran % Seg Neutrophils % Lymphocytes % Monocytes % Eosinophils % Basophils % Neutrophils # Lymphocytes # Monocytes # Eosinophils # Basophils # Platelet Estimate Smear Path Review ESR PT INR APTT Sample Site ABG pH ABG pCO2 ABG pO2 ABG HCO3 ABG Total CO2 ABG O2 Saturation ABG Base Excess Petey Test O2 Delivery Device Inspired O2 Sodium Potassium Chloride Carbon Dioxide BUN Creatinine Est GFR ( Amer) Est GFR (Non-Af Amer) BUN/Creatinine Ratio Glucose POC Glucose Calculated Osmolality Lactic Acid 1.4 Calcium Phosphorus Magnesium Total Bilirubin Direct Bilirubin Indirect Bilirubin AST ALT Alkaline Phosphatase Lactate Dehydrogenase 140 Creatine Kinase 43 Troponin I C-Reactive Protein 17 H Serum Total Protein Albumin Globulin Albumin/Globulin Ratio Amylase 22 L Lipase 13 TSH Free T4 Urine Color Urine Clarity Urine pH Ur Specific [place] Urine Protein Urine Glucose (UA) Urine Ketones Urine Blood Urine Nitrite Urine Bilirubin Urine Urobilinogen Ur Leukocyte Esterase Urine Microscopic RBC Urine Microscopic WBC Ur Squamous Epith Cells Urine Bacteria Hyaline Casts Ur Culture Indicated? Nasal Screen MRSA (PCR) Urine Opiates Screen Ur Barbiturates Screen Ur Phencyclidine Scrn Ur Amphetamines Screen U Benzodiazepines Scrn Urine Cocaine Screen U Marijuana (THC) Screen Ur Drug Screen Interp Rheumatoid Factor < 10 Chlamy pneumoniae PCR Adenovirus (PCR) B. pertussis DNA (PCR) B.parapertussis DNA PCR Coronavirus OC43 (PCR) Coronavirus HKU1 (PCR) Coronavirus 229E (PCR) Coronavirus NL63 (PCR) Human Metapneumovir PCR Influenza A (H1) PCR Influ A (H1N1/09) PCR Influenza A (H3) PCR Influenza A Untype (PCR) Influenza Type B (PCR) M.pneumoniae DNA (PCR) Parainfluenza 1 (PCR) Parainfluenza 2 (PCR) Parainfluenza 3 (PCR) Parainfluenza 4 (PCR) RSV (PCR) Entero/Rhino (PCR) Specimen Rejected 01/01/18 01/01/18 01/01/18 13:56 13:11 12:29 WBC RBC Hgb Hct MCV MCH MCHC RDW Plt Count MPV Immature Gran % Seg Neutrophils % Lymphocytes % Monocytes % Eosinophils % Basophils % Neutrophils # Lymphocytes # Monocytes # Eosinophils # Basophils # Platelet Estimate Smear Path Review ESR PT INR APTT Sample Site ABG pH ABG pCO2 ABG pO2 ABG HCO3 ABG Total CO2 ABG O2 Saturation ABG Base Excess Petey Test O2 Delivery Device Inspired O2 Sodium 139 Potassium 3.9 Chloride 102 Carbon Dioxide 21 L BUN 42 H Creatinine 3.32 H Est GFR ( Amer) 17 L Est GFR (Non-Af Amer) 14 L BUN/Creatinine Ratio 13 Glucose 120 H POC Glucose 113 H Calculated Osmolality 300 Lactic Acid Calcium 9.5 Phosphorus Magnesium Total Bilirubin Direct Bilirubin Indirect Bilirubin AST ALT Alkaline Phosphatase Lactate Dehydrogenase Creatine Kinase Troponin I C-Reactive Protein Serum Total Protein Albumin Globulin Albumin/Globulin Ratio Amylase Lipase TSH Free T4 Urine Color Urine Clarity Urine pH Ur Specific [place] Urine Protein Urine Glucose (UA) Urine Ketones Urine Blood Urine Nitrite Urine Bilirubin Urine Urobilinogen Ur Leukocyte Esterase Urine Microscopic RBC Urine Microscopic WBC Ur Squamous Epith Cells Urine Bacteria Hyaline Casts Ur Culture Indicated? Nasal Screen MRSA (PCR) Urine Opiates Screen Ur Barbiturates Screen Ur Phencyclidine Scrn Ur Amphetamines Screen U Benzodiazepines Scrn Urine Cocaine Screen U Marijuana (THC) Screen Ur Drug Screen Interp Rheumatoid Factor Chlamy pneumoniae PCR Adenovirus (PCR) B. pertussis DNA (PCR) B.parapertussis DNA PCR Coronavirus OC43 (PCR) Coronavirus HKU1 (PCR) Coronavirus 229E (PCR) Coronavirus NL63 (PCR) Human Metapneumovir PCR Influenza A (H1) PCR Influ A (H1N1/09) PCR Influenza A (H3) PCR Influenza A Untype (PCR) Influenza Type B (PCR) M.pneumoniae DNA (PCR) Parainfluenza 1 (PCR) Parainfluenza 2 (PCR) Parainfluenza 3 (PCR) Parainfluenza 4 (PCR) RSV (PCR) Entero/Rhino (PCR) Specimen Rejected Volume 01/01/18 01/01/18 01/01/18 10:38 08:00 05:02 WBC 26.1 H RBC 5.10 H Hgb 15.9 H Hct 49.5 H MCV 97.1 MCH 31.2 MCHC 32.1 RDW 15.2 H Plt Count 469 H MPV 10.7 Immature Gran % 1.1 Seg Neutrophils % 69.5 Lymphocytes % 22.5 Monocytes % 6.4 Eosinophils % 0.1 Basophils % 0.4 Neutrophils # 18.1 H Lymphocytes # 5.9 H Monocytes # 1.7 H Eosinophils # 0.0 Basophils # 0.1 Platelet Estimate Slight increase H Smear Path Review See Below ESR PT INR APTT Sample Site ABG pH ABG pCO2 ABG pO2 ABG HCO3 ABG Total CO2 ABG O2 Saturation ABG Base Excess Petey Test O2 Delivery Device Inspired O2 Sodium Potassium Chloride Carbon Dioxide BUN Creatinine Est GFR ( Amer) Est GFR (Non-Af Amer) BUN/Creatinine Ratio Glucose POC Glucose Calculated Osmolality Lactic Acid Calcium Phosphorus Magnesium Total Bilirubin Direct Bilirubin Indirect Bilirubin AST ALT Alkaline Phosphatase Lactate Dehydrogenase Creatine Kinase Troponin I C-Reactive Protein Serum Total Protein Albumin Globulin Albumin/Globulin Ratio Amylase Lipase TSH Free T4 Urine Color Urine Clarity Urine pH Ur Specific [place] Urine Protein Urine Glucose (UA) Urine Ketones Urine Blood Urine Nitrite Urine Bilirubin Urine Urobilinogen Ur Leukocyte Esterase Urine Microscopic RBC Urine Microscopic WBC Ur Squamous Epith Cells Urine Bacteria Hyaline Casts Ur Culture Indicated? Nasal Screen MRSA (PCR) Negative Urine Opiates Screen Ur Barbiturates Screen Ur Phencyclidine Scrn Ur Amphetamines Screen U Benzodiazepines Scrn Urine Cocaine Screen U Marijuana (THC) Screen Ur Drug Screen Interp Rheumatoid Factor Chlamy pneumoniae PCR Adenovirus (PCR) B. pertussis DNA (PCR) B.parapertussis DNA PCR Coronavirus OC43 (PCR) Coronavirus HKU1 (PCR) Coronavirus 229E (PCR) Coronavirus NL63 (PCR) Human Metapneumovir PCR Influenza A (H1) PCR Influ A (H1N1/09) PCR Influenza A (H3) PCR Influenza A Untype (PCR) Influenza Type B (PCR) M.pneumoniae DNA (PCR) Parainfluenza 1 (PCR) Parainfluenza 2 (PCR) Parainfluenza 3 (PCR) Parainfluenza 4 (PCR) RSV (PCR) Entero/Rhino (PCR) Specimen Rejected 12/31/17 12/31/17 12/31/17 05:47 05:47 05:47 WBC RBC Hgb Hct MCV MCH MCHC RDW Plt Count MPV Immature Gran % Seg Neutrophils % Lymphocytes % Monocytes % Eosinophils % Basophils % Neutrophils # Lymphocytes # Monocytes # Eosinophils # Basophils # Platelet Estimate Smear Path Review ESR 65 H PT 12.0 INR 1.1 APTT Sample Site ABG pH ABG pCO2 ABG pO2 ABG HCO3 ABG Total CO2 ABG O2 Saturation ABG Base Excess Petey Test O2 Delivery Device Inspired O2 Sodium 137 Potassium 3.9 Chloride 103 Carbon Dioxide 22 L BUN 24 H Creatinine 1.11 Est GFR ( Amer) > 60 Est GFR (Non-Af Amer) 51 L BUN/Creatinine Ratio 22 Glucose 123 H POC Glucose Calculated Osmolality 289 Lactic Acid Calcium 9.7 Phosphorus Magnesium Total Bilirubin 0.5 Direct Bilirubin Indirect Bilirubin AST 15 ALT 17 Alkaline Phosphatase 159 H Lactate Dehydrogenase Creatine Kinase Troponin I C-Reactive Protein Serum Total Protein 7.4 Albumin 4.0 Globulin 3.4 Albumin/Globulin Ratio 1.2 Amylase Lipase TSH Free T4 Urine Color Urine Clarity Urine pH Ur Specific [place] Urine Protein Urine Glucose (UA) Urine Ketones Urine Blood Urine Nitrite Urine Bilirubin Urine Urobilinogen Ur Leukocyte Esterase Urine Microscopic RBC Urine Microscopic WBC Ur Squamous Epith Cells Urine Bacteria Hyaline Casts Ur Culture Indicated? Nasal Screen MRSA (PCR) Urine Opiates Screen Ur Barbiturates Screen Ur Phencyclidine Scrn Ur Amphetamines Screen U Benzodiazepines Scrn Urine Cocaine Screen U Marijuana (THC) Screen Ur Drug Screen Interp Rheumatoid Factor Chlamy pneumoniae PCR Adenovirus (PCR) B. pertussis DNA (PCR) B.parapertussis DNA PCR Coronavirus OC43 (PCR) Coronavirus HKU1 (PCR) Coronavirus 229E (PCR) Coronavirus NL63 (PCR) Human Metapneumovir PCR Influenza A (H1) PCR Influ A (H1N1/09) PCR Influenza A (H3) PCR Influenza A Untype (PCR) Influenza Type B (PCR) M.pneumoniae DNA (PCR) Parainfluenza 1 (PCR) Parainfluenza 2 (PCR) Parainfluenza 3 (PCR) Parainfluenza 4 (PCR) RSV (PCR) Entero/Rhino (PCR) Specimen Rejected 12/31/17 12/30/17 12/30/17 05:47 21:13 17:26 WBC 18.9 H RBC 5.14 H Hgb 15.8 H Hct 48.1 H MCV 93.6 MCH 30.7 MCHC 32.8 RDW 15.1 H Plt Count 462 H MPV 10.1 Immature Gran % 1.1 Seg Neutrophils % 67.4 Lymphocytes % 25.3 Monocytes % 5.6 Eosinophils % 0.2 Basophils % 0.4 Neutrophils # 12.8 H Lymphocytes # 4.8 H Monocytes # 1.1 Eosinophils # 0.0 Basophils # 0.1 Platelet Estimate Smear Path Review ESR PT INR APTT Sample Site ABG pH ABG pCO2 ABG pO2 ABG HCO3 ABG Total CO2 ABG O2 Saturation ABG Base Excess Petey Test O2 Delivery Device Inspired O2 Sodium Potassium Chloride Carbon Dioxide BUN Creatinine Est GFR ( Amer) Est GFR (Non-Af Amer) BUN/Creatinine Ratio Glucose POC Glucose Calculated Osmolality Lactic Acid 0.9 Calcium Phosphorus Magnesium Total Bilirubin Direct Bilirubin Indirect Bilirubin AST ALT Alkaline Phosphatase Lactate Dehydrogenase Creatine Kinase Troponin I 0.04 H* C-Reactive Protein Serum Total Protein Albumin Globulin Albumin/Globulin Ratio Amylase Lipase TSH Free T4 Urine Color Urine Clarity Urine pH Ur Specific [place] Urine Protein Urine Glucose (UA) Urine Ketones Urine Blood Urine Nitrite Urine Bilirubin Urine Urobilinogen Ur Leukocyte Esterase Urine Microscopic RBC Urine Microscopic WBC Ur Squamous Epith Cells Urine Bacteria Hyaline Casts Ur Culture Indicated? Nasal Screen MRSA (PCR) Urine Opiates Screen Ur Barbiturates Screen Ur Phencyclidine Scrn Ur Amphetamines Screen U Benzodiazepines Scrn Urine Cocaine Screen U Marijuana (THC) Screen Ur Drug Screen Interp Rheumatoid Factor Chlamy pneumoniae PCR Adenovirus (PCR) B. pertussis DNA (PCR) B.parapertussis DNA PCR Coronavirus OC43 (PCR) Coronavirus HKU1 (PCR) Coronavirus 229E (PCR) Coronavirus NL63 (PCR) Human Metapneumovir PCR Influenza A (H1) PCR Influ A (H1N1/09) PCR Influenza A (H3) PCR Influenza A Untype (PCR) Influenza Type B (PCR) M.pneumoniae DNA (PCR) Parainfluenza 1 (PCR) Parainfluenza 2 (PCR) Parainfluenza 3 (PCR) Parainfluenza 4 (PCR) RSV (PCR) Entero/Rhino (PCR) Specimen Rejected 12/30/17 12/30/17 12/30/17 14:57 08:50 08:50 WBC RBC Hgb Hct MCV MCH MCHC RDW Plt Count MPV Immature Gran % Seg Neutrophils % Lymphocytes % Monocytes % Eosinophils % Basophils % Neutrophils # Lymphocytes # Monocytes # Eosinophils # Basophils # Platelet Estimate Smear Path Review ESR PT INR APTT Sample Site ABG pH ABG pCO2 ABG pO2 ABG HCO3 ABG Total CO2 ABG O2 Saturation ABG Base Excess Petey Test O2 Delivery Device Inspired O2 Sodium 134 L Potassium 3.9 Chloride 101 Carbon Dioxide 23 BUN 18 Creatinine 1.00 Est GFR ( Amer) > 60 Est GFR (Non-Af Amer) 57 L BUN/Creatinine Ratio 18 Glucose 137 H POC Glucose Calculated Osmolality 282 Lactic Acid Calcium 9.8 Phosphorus Magnesium Total Bilirubin 0.5 Direct Bilirubin Indirect Bilirubin AST 13 ALT 18 Alkaline Phosphatase 166 H Lactate Dehydrogenase Creatine Kinase Troponin I 0.04 H* 0.06 H* C-Reactive Protein Serum Total Protein 7.4 Albumin 3.9 Globulin 3.5 Albumin/Globulin Ratio 1.1 Amylase Lipase TSH Free T4 Urine Color Urine Clarity Urine pH Ur Specific [place] Urine Protein Urine Glucose (UA) Urine Ketones Urine Blood Urine Nitrite Urine Bilirubin Urine Urobilinogen Ur Leukocyte Esterase Urine Microscopic RBC Urine Microscopic WBC Ur Squamous Epith Cells Urine Bacteria Hyaline Casts Ur Culture Indicated? Nasal Screen MRSA (PCR) Urine Opiates Screen Ur Barbiturates Screen Ur Phencyclidine Scrn Ur Amphetamines Screen U Benzodiazepines Scrn Urine Cocaine Screen U Marijuana (THC) Screen Ur Drug Screen Interp Rheumatoid Factor Chlamy pneumoniae PCR Adenovirus (PCR) B. pertussis DNA (PCR) B.parapertussis DNA PCR Coronavirus OC43 (PCR) Coronavirus HKU1 (PCR) Coronavirus 229E (PCR) Coronavirus NL63 (PCR) Human Metapneumovir PCR Influenza A (H1) PCR Influ A (H1N1/09) PCR Influenza A (H3) PCR Influenza A Untype (PCR) Influenza Type B (PCR) M.pneumoniae DNA (PCR) Parainfluenza 1 (PCR) Parainfluenza 2 (PCR) Parainfluenza 3 (PCR) Parainfluenza 4 (PCR) RSV (PCR) Entero/Rhino (PCR) Specimen Rejected 12/30/17 12/28/17 12/28/17 04:28 22:50 22:01 WBC 20.6 H RBC 5.13 H Hgb 15.8 H Hct 48.1 H MCV 93.8 MCH 30.8 MCHC 32.8 RDW 14.8 H Plt Count 501 H MPV 10.6 Immature Gran % 0.9 Seg Neutrophils % 72.7 Lymphocytes % 20.7 Monocytes % 5.3 Eosinophils % 0.1 Basophils % 0.3 Neutrophils # 14.9 H Lymphocytes # 4.3 Monocytes # 1.1 Eosinophils # 0.0 Basophils # 0.1 Platelet Estimate Smear Path Review ESR PT INR APTT Sample Site ABG pH ABG pCO2 ABG pO2 ABG HCO3 ABG Total CO2 ABG O2 Saturation ABG Base Excess Petey Test O2 Delivery Device Inspired O2 Sodium 137 Potassium 3.8 Chloride 106 Carbon Dioxide 24 BUN 18 Creatinine 1.10 Est GFR ( Amer) > 60 Est GFR (Non-Af Amer) 51 L BUN/Creatinine Ratio 16 Glucose 108 H POC Glucose Calculated Osmolality 286 Lactic Acid Calcium 9.3 Phosphorus Magnesium Total Bilirubin 0.3 Direct Bilirubin Indirect Bilirubin AST 20 ALT 23 Alkaline Phosphatase 171 H Lactate Dehydrogenase Creatine Kinase Troponin I C-Reactive Protein Serum Total Protein 7.0 Albumin 3.7 Globulin 3.3 Albumin/Globulin Ratio 1.1 Amylase Lipase TSH Free T4 Urine Color Yellow Urine Clarity Clear Urine pH 7.5 Ur Specific [place] 1.016 Urine Protein Negative Urine Glucose (UA) Normal Urine Ketones Trace H Urine Blood Negative Urine Nitrite Negative Urine Bilirubin Negative Urine Urobilinogen Normal Ur Leukocyte Esterase Small H Urine Microscopic RBC 0-3 Urine Microscopic WBC 0-3 Ur Squamous Epith Cells Many H Urine Bacteria None Seen Hyaline Casts None Seen Ur Culture Indicated? NO. A Nasal Screen MRSA (PCR) Urine Opiates Screen Ur Barbiturates Screen Ur Phencyclidine Scrn Ur Amphetamines Screen U Benzodiazepines Scrn Urine Cocaine Screen U Marijuana (THC) Screen Ur Drug Screen Interp Rheumatoid Factor Chlamy pneumoniae PCR Adenovirus (PCR) B. pertussis DNA (PCR) B.parapertussis DNA PCR Coronavirus OC43 (PCR) Coronavirus HKU1 (PCR) Coronavirus 229E (PCR) Coronavirus NL63 (PCR) Human Metapneumovir PCR Influenza A (H1) PCR Influ A (H1N1/09) PCR Influenza A (H3) PCR Influenza A Untype (PCR) Influenza Type B (PCR) M.pneumoniae DNA (PCR) Parainfluenza 1 (PCR) Parainfluenza 2 (PCR) Parainfluenza 3 (PCR) Parainfluenza 4 (PCR) RSV (PCR) Entero/Rhino (PCR) Specimen Rejected 12/28/17 12/28/17 12/28/17 21:49 21:49 10:50 WBC 14.7 H RBC 4.78 Hgb 14.5 Hct 45.4 H MCV 95.0 MCH 30.3 MCHC 31.9 RDW 14.6 H Plt Count 390 MPV 10.9 Immature Gran % 1.0 Seg Neutrophils % 68.2 Lymphocytes % 25.5 Monocytes % 3.9 Eosinophils % 0.9 Basophils % 0.5 Neutrophils # 10.0 H Lymphocytes # 3.8 Monocytes # 0.6 Eosinophils # 0.1 Basophils # 0.1 Platelet Estimate Smear Path Review ESR PT INR APTT Sample Site ABG pH ABG pCO2 ABG pO2 ABG HCO3 ABG Total CO2 ABG O2 Saturation ABG Base Excess Petey Test O2 Delivery Device Inspired O2 Sodium Potassium Chloride Carbon Dioxide BUN Creatinine Est GFR ( Amer) Est GFR (Non-Af Amer) BUN/Creatinine Ratio Glucose POC Glucose Calculated Osmolality Lactic Acid Calcium Phosphorus 2.8 Magnesium 2.0 Total Bilirubin Direct Bilirubin Indirect Bilirubin AST ALT Alkaline Phosphatase Lactate Dehydrogenase Creatine Kinase Troponin I C-Reactive Protein Serum Total Protein Albumin Globulin Albumin/Globulin Ratio Amylase Lipase TSH 1.362 Free T4 0.72 Urine Color Urine Clarity Urine pH Ur Specific [place] Urine Protein Urine Glucose (UA) Urine Ketones Urine Blood Urine Nitrite Urine Bilirubin Urine Urobilinogen Ur Leukocyte Esterase Urine Microscopic RBC Urine Microscopic WBC Ur Squamous Epith Cells Urine Bacteria Hyaline Casts Ur Culture Indicated? Nasal Screen MRSA (PCR) Urine Opiates Screen Negative Ur Barbiturates Screen Negative Ur Phencyclidine Scrn Negative Ur Amphetamines Screen Negative U Benzodiazepines Scrn Negative Urine Cocaine Screen Negative U Marijuana (THC) Screen Negative Ur Drug Screen Interp See Below Rheumatoid Factor Chlamy pneumoniae PCR Adenovirus (PCR) B. pertussis DNA (PCR) B.parapertussis DNA PCR Coronavirus OC43 (PCR) Coronavirus HKU1 (PCR) Coronavirus 229E (PCR) Coronavirus NL63 (PCR) Human Metapneumovir PCR Influenza A (H1) PCR Influ A (H1N1/09) PCR Influenza A (H3) PCR Influenza A Untype (PCR) Influenza Type B (PCR) M.pneumoniae DNA (PCR) Parainfluenza 1 (PCR) Parainfluenza 2 (PCR) Parainfluenza 3 (PCR) Parainfluenza 4 (PCR) RSV (PCR) Entero/Rhino (PCR) Specimen Rejected - Attending Attestation I have seen and examined Ms. Patel and agree with the assessment and plan put in place by Ms. Kimble. Patient is unable to communicate she is heavily sedated. Physical exam is unrevealing. I do not palpate splenomegaly. Patient appears to have reactive leukocytosis and thrombocytosis. At time of admission, her platelet count hemoglobin were normal. She had a mild leukocytosis which has worsened during her hospital stay. She remains afebrile and no infection can be identified. Peripheral smear reveals a neutrophil prominent leukocytosis without left shift or immature forms. I am uncertain as to the cause of her neutrophilia but could be medication related or possibly seizure related. Certainly her hematologic findings are not the cause of her neurologic issues. In either case, I do not think this is of concern and no further workup is recommended. Would continue to follow her CBC on a daily basis to trend her white blood cell count. Inpatient Charges Provider: Dr. Yola Angulo Consult - Inpatient: [id number]
--- NOTE | 2018-01-01 17:38 | Sepsis Event Note ---
Sepsis Reassessment Note - Evaluation Sepsis Screen: No Definite Risk Current Stage of Sepsis: ruled out Reason for ruling out sepsis: not tachycardic, tachypnic or Temp > 101.3 or < 96.8 Possible Source of Sepsis: other - Focused Exam Date of Encounter: 01/01/18 Time of Encounter: 17:38 Vital Signs: Vital Signs Temp Pulse Resp BP Pulse Ox 01/01/18 17:17 76 16 127/73 95 01/01/18 16:47 97.7 F 76 16 110/74 94 01/01/18 16:21 60 16 92/61 95 01/01/18 15:57 73 16 102/58 95 01/01/18 15:43 77 16 97/63 95 01/01/18 14:39 16 103/65 95 01/01/18 14:18 18 87/57 95 01/01/18 13:57 92/62 01/01/18 09:13 93 01/01/18 08:39 97.9 F 86 18 117/75 93 Respiratory Exam: Present: CTA bilaterally Cardiovascular Exam: Present: RRR Capillary Refill: > 2 seconds Peripheral Pulse Strength: 3+ normal Peripheral Pulse Location: Radial Skin Exam: normal turgor
[2018-01-01] MEDS ORDERED: levoFLOXacin 500 MG TABLET PO ONE (17:59)
[2018-01-01] MEDS ORDERED: Piperacillin/Tazobactam 3.375 GM in 0.9 % Sodium Chloride Mini Bag 100 ML IVPB SCH (18:00)
[2018-01-01] MEDS ORDERED: Aminoglycoside Consult 1 EACH MC ONE (18:09)
[2018-01-01 18:25] LABS: Adenovirus Not Detected (Not Detect); Bordetella Pertussis Not Detected (Not Detect); Chlamydophila pneumoniae Not Detected (Not Detect); Coronavirus 229E Not Detected (Not Detect); Coronavirus HKU1 Not Detected (Not Detect); Coronavirus NL63 Not Detected (Not Detect); Coronavirus OC43 Not Detected (Not Detect); Human Metapneumovirus Not Detected (Not Detect); Human Rhinovirus/Enterovirus Not Detected (Not Detect); Influenza A Subtype 2009 H1 Not Detected (Not Detect); Influenza A Untypeable Not Detected (Not Detect); Influenza B Not Detected (Not Detect); Mycoplasma pneumoniae Not Detected (Not Detect); Parainfluenza Virus 1 Not Detected (Not Detect); Parainfluenza Virus 2 Not Detected (Not Detect); Parainfluenza Virus 3 Not Detected (Not Detect); Parainfluenza Virus 4 Not Detected (Not Detect); Respiratory Syncytial Virus Not Detected (Not Detect)
[2018-01-01] MEDS ORDERED: Levofloxacin 500 MG/100 ML 500 MG/100 ML BAG IVPB ONE (20:02)
[2018-01-01] MEDS: Nystatin POWDER 30 GM BOTTLE TP SCH (20:26)
[2018-01-01] MEDS: 0.9 % Sodium Chloride 1,000 ML IVC SCH (20:26)
[2018-01-02] MEDS: 0.9 % Sodium Chloride 1,000 ML IVC SCH ×3 (03:45→16:53)
[2018-01-02 05:33] LABS: Basophils # 0.1 K/mcL (0.0-0.2); Basophils % 0.4 %; Eosinophils % 0.1 %; Immature Granulocytes % 0.8 % (0-4); Lymphocytes # 4.5 K/mcL (0.6-4.6); Lymphocytes % 21.1 %; Mean Corpuscular HGB Conc 31.1 g/dL (31.6-35.5); Mean Corpuscular Hemoglobin 30.9 pg (28.0-33.3); Mean Corpuscular Volume 99.3 fL (83.0-100.0); Mean Platelet Volume 10.7 fL (9.4-12.4); Monocytes # 1.1 K/mcL (0.0-1.3); Monocytes % 4.9 %; Neutrophils # 15.6 K/mcL (1.6-8.9); Platelet Count 331 K/mcL (140-400); Red Blood Count 4.53 M/mcL (3.82-4.97); Red Cell Distribution Width 15.2 % (11.5-14.5); Segmented Neutrophils % 72.7 %
[2018-01-02 05:56] LABS: Calcium 8.5 mg/dL (8.6-10.3); Potassium 4.1 mEq/L (3.5-5.1)
[2018-01-02] MEDS: *HR* Heparin 5,000 UNIT/ML VIAL SQ SCH ×2 (06:23→16:58)
[2018-01-02 07:18] LABS: Bilirubin,Urine Small (Negative); Blood,Urine Negative (Negative); Clarity,Urine Cloudy (Clear); Color,Urine Yellow (Yellow); Glucose,Urine (UA) Normal (Normal); Ketones,Urine Negative (Negative); Leukocyte Esterase,Urine Negative (Negative); Nitrite,Urine Negative (Negative); PH,Urine 5.5 pH Units (5.0-8.0); Protein,Urine 30 mg/dL (Neg-Trace); Specific Gravity,Urine 1.017 (1.010-1.025); Urobilinogen,Urine Normal (Normal)
[2018-01-02 07:21] LABS: Bacteria,Urine None Seen per hpf (None-Few); Squamous Epithelial Cell,Urine Many per lpf (None-Few)
[2018-01-02 07:33] LABS: Hyaline Casts,Urine Few per lpf (None-Few)
--- NOTE | 2018-01-02 07:56 | Internal Med Progress Note ---
<Natanael Man - Last Filed: 01/02/18 14:56> Hospitalist Progress Note - Exam Vitals: Temp Pulse Resp BP Pulse Ox 98.8 F 86 16 165/84 96 01/02/18 11:13 01/02/18 11:13 01/02/18 11:13 01/02/18 11:13 01/02/18 11:13 - Assessment and Plan (1) Delirium due to known physiological condition Current Visit: Yes Status: Acute (2) Suicidal behavior Current Visit: Yes Status: Chronic (3) Bipolar disorder Current Visit: Yes Status: Chronic (4) HTN (hypertension) Current Visit: Yes Status: Chronic (5) Morbid obesity with BMI of 40.0-44.9, adult Current Visit: Yes Status: Chronic (6) Sepsis Current Visit: Yes Status: Acute (7) DAVIDE (acute kidney injury) Current Visit: Yes Status: Acute - Time Spent with Patient Total time spent is greater than 50% in coordination of care (as documented) at patient's floor/unit and/or counseling patient: Internal Medicine: Result - Labs CBC & Chem 7: 01/02/18 05:03 01/02/18 05:03 Labs: Short CBC 01/01/18 01/02/18 Range/Units 15:42 05:03 WBC 25.0 H 21.5 H (4.3-11.1) K/mcL Hgb 14.2 D 14.0 (11.5-15.4) g/dL Hct 45.5 H 45.0 H (35.3-44.9) % Plt Count 396 331 (140-400) K/mcL Neutrophils # 17.2 H 15.6 H (1.6-8.9) K/mcL BMP 01/02/18 05:03 Sodium 138 Potassium 4.1 Chloride 111 H Carbon Dioxide 19 L BUN 43 H Creatinine 2.07 H Glucose 101 Calcium 8.5 L Liver Function 01/01/18 Range/Units 15:42 Total Bilirubin 0.4 (0.3-1.0) mg/dL Direct Bilirubin 0.1 (0.0-0.2) mg/dL AST 17 (13-39) Units/L ALT 20 (7-52) Units/L Alkaline Phosphatase 143 H (34-104) Units/L Albumin 3.5 (3.5-5.7) g/dL Urine 01/02/18 Range/Units 06:50 Urine Color Yellow (Yellow) Urine Clarity Cloudy A (Clear) Urine pH 5.5 (5.0-8.0) pH Units Ur Specific [place] 1.017 (1.010-1.025) Urine Protein 30 H (Neg-Trace) mg/dL Urine Glucose (UA) Normal (Normal) mg/dL - ABG Interpretation ABG results: ABG ABG pH 7.32 pH Units (7.32-7.45) 01/01/18 16:27 ABG pCO2 46 mmHg (35-45) H 01/01/18 16:27 ABG pO2 62 mmHg (85-104) L 01/01/18 16:27 ABG O2 Saturation 89 % (95-98) L 01/01/18 16:27 PT/INR, D-dimer PT 11.6 Seconds (9.4-12.1) 01/01/18 15:42 - Impressions Impressions Abdomen/Pelvis CT 01/01/18 18:25 IMPRESSION: Severe diffuse hepatic steatosis. No acute abnormality in the abdomen or pelvis to explain patient's symptoms of elevated white blood cell count. D/ / 01/02/2018 05:36:59 Tam Acosta MD / [email or web address] Interpreting Provider: Tam Acosta MD Consult Discharge Plan - Plan Referrals: NONE,PCP [Primary Care Provider] - - Attending Attestation I examined this patient and my medical decision-making was reviewed with the Resident Physician on 01/02/18. I agree with the documented findings, disposition and treatment plan as described except to the extent set forth below. Ms Patel is currently admitted for leukocytosis and encephalopathy. She remains moderate to high risk due to potential for worsening clinical status. Ms Patel is alert but having issues with some word finding. She says she is confused. No fever or chills. No CP or SOB. No cough. No GI issues. Exam alert Comfortable Mucus membranes dry Heart reg No wheeze abd soft No edema Moves all extremities. Seems to be having issues with word finding at times. I/P 1. Leukocytosis - persists. Appreciate all consultants. 2. Check MRI brain. Pt had hypotension yesterday. Need to eval for any evidence of ischemia. Further diagnoses and plan as above. <Delio Rodarte - Last Filed: 01/02/18 15:27> Hospitalist Progress Note - Encounter Date of Encounter: 01/02/18 Time of Encounter: 08:30 - Subjective Interval History: 01/02 Patient is seen at the bedside this morning,endorses no acute distress. Blood pressure this morning has been 161/82. In the context of her DAVIDE, I have held her lisinopril and chlorthalidone. I am going start her on 5 mg amlodipine for blood pressure control. The count has been trending down since yesterday from 25 to 21.5 . Current urine output is 1350 since last night. Patient's respiratory infection panel, UA has been negative. 01/01 Patient seen at the bedside this morning. ESR count was 65. Inspected her entire body to look for any evidence of any erythema or infection. There was evidence of fungal infection in her gluteal folds and I ordered some nystatin powder. Her white blood count is 26.1 as of this a.m. I ordered MRSA swab, UA, chest x-ray, urine culture and blood culture this morning. Patient had a hypotensive episode this afternoon , and was given 1L bolus 0.9% Nacl and started on maintenance fluid at 150/hr and the most recent read on BP is 103/65. She also has an oliguric DAVIDE , bladder scan showed 35 mL urine. 12/31 No acute events overnight. Patient is comfortably sitting on the couch when I met her this morning. she is back on her home medications Keppra and baclofen today and seraquel 25mg TID starting tomorrow. I was also informed that according to patient's PCP she attempted suicide 2 weeks ago by overdosing on Haldol, Nurse paged me this afternoon about her coming and taking her back home I spoke to the Mr. Fritz this p.m. and explained to her him that patient has a history of suicidal ideation and has a high white blood count, we are in the middle of investigating that . Patient's does not believe that the workup should takes that long. Had the nurse make a phone call to the [facility] and speak to [facility] . I was told that her history of suicidal ideation she should be pink slipped. I did so. 12/29 this is a 57 year old female past medical history of anxiety, depression, bipolar and psychosis who was admitted to the floor because of altered mental status, HTN and Leuokocytosis. She initially came to the psych unit because of supposedly a suicidal attempt, sent to the floor because of elevated blood pressure and leukocytosis. Workup was negative for any pathology in the chest x-ray, her UA showed small amount of leukocyte esterase. Most of the history was obtained from the patients . According to him, patient has been without her psych medications for a while (he couldn't specify if it was weeks or months) .He endorses that other than her Hx of anxiety , dperesion, bipolar disorders, and scoliosis she has no other medical problems. Patient has no prior sick contacts, no PMHx of renal problems, her thyroid workup was negative . Patient has not been complaining any symptoms like MORGAN, belly pain, diarrhea, dizziness. She denies any systemic signs like fever, shortness of breath, chest pain. - Exam Vitals: Temp Pulse Resp BP Pulse Ox 98.2 F 96 16 161/82 96 01/02/18 06:59 01/02/18 06:59 01/02/18 06:59 01/02/18 06:59 01/02/18 06:59 Exam: General appearance: Present: cooperative, A&O X 3, no acute distress, answers questions appropriately Exam: Awake, pleasant, resting comfortably in bed - Head Head exam: Present: atraumatic, normocephalic - Eye Eye exam: Present: pupil dilated, EOMI, conjuntiva pink, sclera anicteric - ENT ENT exam: Present: mucous membranes moist - Neck Neck exam general surgery: Present: supple, trachea midline. Absent: lymphadenopathy - Respiratory Respiratory exam: Latest neck CTAB. Absent: accessory muscle use, rales, rhonchi, wheezes - Cardiovascular Cardiovascular exam: Present: RRR, +S1, +S2. Absent: diastolic murmur, gallop, rubs, systolic murmur - GI/Abdominal GI/Abdominal exam: Present: normal bowel sounds, soft, no peritoneal signs. Absent: distended, tenderness - Extremities Exam Extremities exam: Present: warm, radial pulses palpable and symmetrical. Absent: calf tenderness, cyanotic, pedal edema - Neurological Exam Neurological exam: Present: CN II-XII intact, oriented X3, no focal deficits. Absent: pronater drift, facial droop, speech deficit - Psychiatric Psychiatric exam: Present: normal affect, normal mood - Skin Skin exam: Present: dry, warm, no rash - Assessment and Plan (1) DAVIDE (acute kidney injury) Current Visit: Yes Status: Acute Assessment and Plan: - Patient had oliguric DAVIDE yesterday with Cr 3.32, Was given fluid bolus and then maintenance fluid at 150 ml/hr. - Continue holding off on his lisinopril, chlorthalidone. Will continue to gently hydrate him at 150 mls/ hour. - Cr trending down, patient not oliguric anymore. -Nephrology has been consulted. (2) Sepsis Current Visit: Yes Status: Acute Assessment and Plan: - -Progressively increasing leukocytosis of 26.1 as of yesterday trending down to 21. , tachycardia yesterday but resolved as of this p.m. source of infection currently unclear. no obvious signs for any cellulitis or portal sites infection . Patient denies any sick contacts, no recent travels, . With her increase in mature lymphocytes to 5.9 one cannot rule out the possibility of hematological disorders. malignancy cannot be ruled out totally. -Patient's most recent chest x-ray was pretty unremarkable. Her white blood count is trending up 14.7-> 18.9->26.1, ESR: 65, MRSA swab negative, Normal lactic acid. Respiratory infection culture normal. - Blood , Sputum cultures pending. -ID and hematology on board. Continue to monitor (3) Suicidal behavior Current Visit: Yes Status: Chronic Assessment and Plan: - Continues to be pink slipped because of episode of suicidal behavior 2 weeks ago when she overdosed on Haldol . 2 days ago patient's was insisting over the phone that he would like to take the patient back home today, denies that patient never acted on her suicidal thoughts. On recommendations of psych, I had to pink slip the patient yesterday. -P her psych medications are on hold because of her hypotensive episode yesterday and daytime somnolence. - Anticipate psych eval once blood pressure and white blood count is better controlled (4) Bipolar disorder Current Visit: Yes Status: Chronic Assessment and Plan: Patient was started on Seroquel for her Hx of bipolar disorder . However patient became hypotensive and somnolent later this afternoon. We will put her Seroquel on hold till her blood pressure normalizes. She also has to history of epilepsy and was on Keppra 500mg and Seroquel 25 mg TID tomorrow (5) HTN (hypertension) Current Visit: Yes Status: Chronic Assessment and Plan: 01/02 -Patient continues to be hypotensive with systolic 161. Holding off on her antihypertensive medications because of DAVIDE. Currently the plan is to give 5 mg amlodipine. 01/01 - Patient became very hypotensive this afternoon . However it is difficult tot ascertain if it was secondary to administration of Seroquel and baclofen or due to sepsis. In the context of her hypotensive state we are holding off on Lisinopril 10 mg, along with the antihypertensives . Patient is currently s/p a liter of fluid bolus and maintenance fluid at 150 mL's /hr. -Her most recent blood pressure is 102/58. (6) Morbid obesity with BMI of 40.0-44.9, adult Current Visit: Yes Status: Chronic Assessment and Plan: - Has a history of morbid obesity. - We will consel on better dietary choices on discharge. - Time Spent with Patient Total time spent is greater than 50% in coordination of care (as documented) at patient's floor/unit and/or counseling patient: Internal Medicine: Result - Labs CBC & Chem 7: 01/02/18 05:03 01/02/18 05:03 Labs: Short CBC 01/01/18 01/02/18 Range/Units 15:42 05:03 WBC 25.0 H 21.5 H (4.3-11.1) K/mcL Hgb 14.2 D 14.0 (11.5-15.4) g/dL Hct 45.5 H 45.0 H (35.3-44.9) % Plt Count 396 331 (140-400) K/mcL Neutrophils # 17.2 H 15.6 H (1.6-8.9) K/mcL BMP 01/01/18 01/02/18 13:11 05:03 Sodium 139 138 Potassium 3.9 4.1 Chloride 102 111 H Carbon Dioxide 21 L 19 L BUN 42 H 43 H Creatinine 3.32 H 2.07 H Glucose 120 H 101 Calcium 9.5 8.5 L Liver Function 01/01/18 Range/Units 15:42 Total Bilirubin 0.4 (0.3-1.0) mg/dL Direct Bilirubin 0.1 (0.0-0.2) mg/dL AST 17 (13-39) Units/L ALT 20 (7-52) Units/L Alkaline Phosphatase 143 H (34-104) Units/L Albumin 3.5 (3.5-5.7) g/dL Urine 01/02/18 Range/Units 06:50 Urine Color Yellow (Yellow) Urine Clarity Cloudy A (Clear) Urine pH 5.5 (5.0-8.0) pH Units Ur Specific [place] 1.017 (1.010-1.025) Urine Protein 30 H (Neg-Trace) mg/dL Urine Glucose (UA) Normal (Normal) mg/dL - ABG Interpretation ABG results: ABG ABG pH 7.32 pH Units (7.32-7.45) 01/01/18 16:27 ABG pCO2 46 mmHg (35-45) H 01/01/18 16:27 ABG pO2 62 mmHg (85-104) L 01/01/18 16:27 ABG O2 Saturation 89 % (95-98) L 01/01/18 16:27 PT/INR, D-dimer PT 11.6 Seconds (9.4-12.1) 01/01/18 15:42 - Impressions Impressions Chest X-Ray 01/01/18 07:50 IMPRESSION: No acute cardiopulmonary abnormality. D/ / Kanu Mcdermott MD / Kanu Mcdermott MD Interpreting Provider: Kanu Mcdermott MD Abdomen/Pelvis CT 01/01/18 18:25 IMPRESSION: Severe diffuse hepatic steatosis. No acute abnormality in the abdomen or pelvis to explain patient's symptoms of elevated white blood cell count. D/ / 01/02/2018 05:36:59 Tam Acosta MD / [email or web address] Interpreting Provider: Tam Acosta MD <Natanael Man - Last Filed: 01/02/18 14:56> (2) Suicidal behavior Qualifiers: Attempted self-injury: with attempted self-injury Qualified Code(s): T14.91XA - Suicide attempt, initial encounter (3) Bipolar disorder Qualifiers: Active/Remission status: remission status unspecified Qualified Code(s): F31.9 - Bipolar disorder, unspecified (4) HTN (hypertension) Qualifiers: Hypertension type: essential hypertension Qualified Code(s): I10 - Essential (primary) hypertension (6) Sepsis Qualifiers: Sepsis type: sepsis due to unspecified organism Qualified Code(s): A41.9 - Sepsis, unspecified organism <Delio Rodarte - Last Filed: 01/02/18 15:27> (2) Sepsis Qualifiers: Qualified Code(s): A41.9 - Sepsis, unspecified organism (3) Suicidal behavior Qualifiers: Qualified Code(s): T14.91XA - Suicide attempt, initial encounter (4) Bipolar disorder Qualifiers: Qualified Code(s): F31.9 - Bipolar disorder, unspecified (5) HTN (hypertension) Qualifiers: Qualified Code(s): I10 - Essential (primary) hypertension
[2018-01-02] MEDS: levETIRAcetam 250 MG TABLET PO SCH ×2 (10:04→10:33)
[2018-01-02] MEDS: Aspirin 81 MG TAB.CHEW PO SCH ×2 (10:04→10:33)
[2018-01-02] MEDS: amLODIPine 5 MG TABLET PO SCH (10:33)
[2018-01-02] MEDS: Nystatin POWDER 30 GM BOTTLE TP SCH ×2 (10:33→19:41)
[2018-01-02] MEDS ORDERED: Haloperidol Lactate 5 MG/ML VIAL IVP ONE (17:10)
[2018-01-02] MEDS ORDERED: Haloperidol Lactate 5 MG/ML VIAL IVP PRN (17:18)
--- NOTE | 2018-01-02 19:19 | Nephrology Consult Note ---
Date of Encounter: 01/02/18 Time of Encounter: 13:35 Assessment and Plan (1) DAVIDE (acute kidney injury) Current Visit: Yes Status: Acute Acute kidney injury likely secondary to acute renal hypoperfusion, medications, and imaging with contrast. The patient had a CTA on 12/30/2017. She had sudden decrease in blood pressure that made her hypotensive after receiving antihypertensive medications. Those medications were an randall inhibitor and chlorthalidone. She was also receiving vancomycin and Zosyn. -Creatinine 2.07 (3.3 to yesterday) 1.1 at admission -BUN 43 -urinalysis: protein 30, few hyaline casts -I&O: 2240/1350. Urine output Plan: -patient has had improved renal function and good urine output today since blood pressure has been stable and the randall inhibitor and chlorthalidone have been stopped. -Recommend to continue to hold randall inhibitor and chlorthalidone -will order a hepatitis panel -continue IV fluids -renal dose medications -avoid nephrotoxic agents -continue to monitor I&O (2) Altered mental status Current Visit: No Status: Acute Upon examination of the patient today she appeared confused and disoriented however, she was oriented to person and year. She is admitted for suicide attempts for which psychiatry is following. -Management per primary team Qualifiers: Altered mental status type: unspecified Qualified Code(s): R41.82 - Altered mental status, unspecified (3) Blood pressure elevated without history of HTN Current Visit: Yes Status: Acute Blood pressure is elevated but more stable and she is not been hypotensive today. -Recommend holding randall inhibitor and chlorthalidone as acute kidney injury improves -recommend using another antihypertensive History of Present Illness - Reason for Consult Consult date: 01/02/18 Acute Kidney Injury Requesting physician: Delio Rodarte - Chief Complaint Uncontrolled blood pressure - History of Present Illness 57-year-old female who presented to [facility] after a suicide attempt and was admitted to psychiatry unit however she had elevated blood pressure and had to go to the normal admission unit. Nephrology was consulted because while being treated for hypertension she became hypotensive and then developed in acute kidney injury. Upon my examination of the patient she was alert and oriented to person and year only. She seemed off and took time answering questions. There is no family at bedside. She reported that she has had decreased urination. She denies dysuria, hematuria, nausea, vomiting. Past Med Surg Social Fam HX - Past Medical History Attestation: Yes The following information was validated with the patient. Source: patient Medical history: hypertension, seizures Additional medical history: Pt denies HTN but confirms seizures Psychiatric history: bipolar - Social History Smoking Status: Current every day smoker Alcohol use: none Drug use: none Medications and Allergies Baclofen 20 mg PO Q6H 12/29/17 [History] BuPROPion SR (12 HR) [Wellbutrin SR] 100 mg PO BID 12/29/17 [History] Diclofenac Potassium 50 mg PO TID 12/29/17 [History] Divalproex Sodium [Depakote] 125 mg PO BID 12/29/17 [History] Indomethacin 75 mg PO BID 12/29/17 [History] LORazepam [Lorazepam] 2 mg PO TID PRN 12/29/17 [History] Metoclopramide [Reglan] 10 mg PO QIDAC 12/29/17 [History] Nitroglycerin [Nitrostat] 0.4 mg SL PRN PRN 12/29/17 [History] Omeprazole [PriLOSEC] 40 mg PO DAILY 12/29/17 [History] Quetiapine Fumarate [Seroquel] 25 mg PO TID 12/29/17 [History] Allergy/AdvReac Type Severity Reaction Status Date / Time No Known Allergies Allergy Verified 12/29/17 09:31 Review of Systems Constitutional: no chills, no fever(s), no headache(s) Nose, mouth and throat: no dizziness Cardiovascular: no chest pain, no leg edema, no palpitations Respiratory: no cough, no dyspnea, no wheezing Gastrointestinal: abdominal pain, no nausea, no vomiting Genitourinary Female: urinary frequency (Decreased), no dysuria, no hematuria Musculoskeletal: no joint swelling Integumentary: no new lesions, no pruritus, no rash Psychiatric: suicidal ideation Exam - Vital Signs Vital signs: Initial Vital Signs Temp Pulse Resp BP Pulse Ox 98.3 F 73 18 159/93 98 12/28/17 15:58 12/28/17 15:58 12/28/17 15:58 12/28/17 15:58 12/28/17 15:58 Vital Signs - Last 8 Hours Temp Pulse Resp BP Pulse Ox 01/02/18 11:13 98.8 F 86 16 165/84 96 01/02/18 10:09 96 01/02/18 06:59 98.2 F 96 16 161/82 96 Intake and Output 01/01/18 01/02/18 01/02/18 23:59 07:59 15:59 Intake Total 0 / 0 1000 / 1000 1240 / 1240 Output Total 1350 / 1350 0 / 0 Balance 0 / 0 -350 / -350 1240 / 1240 Intake: IV Fluids 1000 / 1000 1000 / 1000 0.9 % Sodium Chloride 1,000 ML 1000 / 1000 1000 / 1000 @ 150 mls/hr IVC .Q6H40M BECK Rx #:[id number] Oral 0 / 0 0 / 0 240 / 240 Output: Urine 0 / 0 Straight Cath 1350 / 1350 Other: Meal Dinner Lunch Percent of Meal Consumed 0% 0% # Voids 0 Weight 103.4 kg Patient Weight 01/02/18 23:59 Weight 103.4 kg - General Appearance General appearance: well-developed, well-nourished, appears started age EENT: mucous membranes moist Neck: no JVD, supple Respiratory: clear Cardiology: no edema, regular rate, regular rhythm Gastrointestinal: normoactive bowel sounds, no tenderness, no guarding Integumentary: no rash, warm and dry Neurologic: confused, disoriented (Alert and oriented to person and year only) Musculoskeletal: no erythema, no clubbing Psychiatric: mood/affect appropriate, cooperative Results - Lab Results 01/02/18 05:03 01/02/18 05:03 Most recent lab results ABG pH 7.32 pH Units (7.32-7.45) 01/01/18 16:27 ABG pCO2 46 mmHg (35-45) H 01/01/18 16:27 ABG pO2 62 mmHg (85-104) L 01/01/18 16:27 ABG HCO3 24 mEq/L (21-27) 01/01/18 16:27 ABG O2 Saturation 89 % (95-98) L 01/01/18 16:27 Calcium 8.5 mg/dL (8.6-10.3) L 01/02/18 05:03 Phosphorus 2.8 mg/dL (2.7-4.5) 12/28/17 21:49 Magnesium 2.0 mg/dL (1.6-2.6) 12/28/17 21:49 Consult Discharge Plan - Plan Referrals: NONE,PCP [Primary Care Provider] -
--- NOTE | 2018-01-02 19:19 | Consult Note ---
Addendum entered and electronically signed by Laron Rodríguez MD 01/02/18 16:08: Please feel free to consult our service again. To help with medical decision making. Addendum entered and electronically signed by Laron Rodríguez MD 01/02/18 13:40: This patient was initially admitted after a suicide attempt. She was admitted to a locked psychiatric unit. After that time she had a change in vital signs and laboratory evidence of infection. The patient has been on the medical floor receiving medical treatment but no source of infection has been identified. The infectious disease team notes that the patient may have a resolving infection and are waiting for her lab cultures and other indices to return. When the patient was seen previously she had delirium. When she is seen today she has delirium. She had a paradoxical reaction to quetiapine and slept for a long period of time. She is off psychiatric medicines that may be used to help treat her bipolar disorder. Nonetheless the patient's primary and predominant presentation is of delirium. The delirium is due to an unclear etiology but a's infectious etiology has been suspected. The patient was on a pink slip for involuntary hold. This and the patient is now a voluntary patient. Therefore it is important to elicit her cooperation in treatment unfortunately she is refusing oral medicines. . The treatment of delirium is generally with low-dose of high potency antipsychotics therefore I would recommend Haldol 0.5 mg 3 times a day as a standing order. This can be given by mouth for periods of agitation and confusion that might interfere with her medical care 2 mg IM could be given. The patient's laboratory studies indicate metabolic and hematologic disturbances like to have addressed before considering her for 1 day. If she came to one a she must come as a voluntary patient. If the patient or family arranged for her to go home or to another facility then Gladys 1A can be offered. If the patient is offered medical procedures the presence of delirium and my examination indicate that the patient lacks the capacity to make medical decisions regarding her healthcare. In such situations a [employer] or substitute decision-maker. Original Note: Date of Encounter: 01/02/18 Time of Encounter: 13:00 Assessment & Recommendation (1) Bipolar disorder Current visit: Yes Status: Acute Qualifiers: Qualified Code(s): F31.70 - Bipolar disorder, currently in remission, most recent episode unspecified (2) Delirium due to known physiological condition Current visit: Yes Status: Resolved History of Present Illness Patient: known to practice within the last 3 years Requesting Physician: Natanael Man DO Reason for consult: for confusio and sedation History of present illness: Ms. Patel is a 57 year old female CC: Natanael Man DO Past Med Surg Social Fam HX - Past Medical History Medical history: hypertension, seizures - Social History Smoking Status: Current every day smoker Alcohol use: none Drug use: none Medications & Allergies Baclofen 20 mg PO Q6H 12/29/17 [History] BuPROPion SR (12 HR) [Wellbutrin SR] 100 mg PO BID 12/29/17 [History] Diclofenac Potassium 50 mg PO TID 12/29/17 [History] Divalproex Sodium [Depakote] 125 mg PO BID 12/29/17 [History] Indomethacin 75 mg PO BID 12/29/17 [History] LORazepam [Lorazepam] 2 mg PO TID PRN 12/29/17 [History] Metoclopramide [Reglan] 10 mg PO QIDAC 12/29/17 [History] Nitroglycerin [Nitrostat] 0.4 mg SL PRN PRN 12/29/17 [History] Omeprazole [PriLOSEC] 40 mg PO DAILY 12/29/17 [History] Quetiapine Fumarate [Seroquel] 25 mg PO TID 12/29/17 [History] Allergy/AdvReac Type Severity Reaction Status Date / Time No Known Allergies Allergy Verified 12/29/17 09:31 Review of Systems Psychiatric: Reports: anxiety, abnormal sleep pattern, visual hallucinations, memory loss, difficulty concentrating Psychiatry Exam - Constitutional Vitals: Temp Pulse Resp BP Pulse Ox 98.8 F 86 16 165/84 96 01/02/18 11:13 01/02/18 11:13 01/02/18 11:13 01/02/18 11:13 01/02/18 11:13 General appearance: age & developmentally appropriate, obese - Musculoskeletal Station: shaky Strength & Tone: mild weakness - Psychiatric Patient Orientation: Yes Person, Yes Place, Yes Circumstance Level of alertness: Alert Behavior: anxious, distractible Psychomotor activity: Slowed Eye Contact: Prolonged Contact Mood Description: Labile Affect description: inappropriate to situation, anxious Speech Volume: Soft/Quiet Speech pattern: slowed, inappropriate to situation, impoverished Thought Process: Tangential, Disorganized, Slowed Thinking Thought Content: Yes Poverty of Content Perceptual Disturbances: Yes Reacting to internal stimuli Attention Span Ability: Unable to Sustain Attention Patient Reliability: Not Reliable Historian Fund of knowledge: Yes average Intelligence Estimate: Average Judgment: Poor Insight: None Results - Labs Labs: Laboratory Last Values WBC 21.5 K/mcL (4.3-11.1) H 01/02/18 05:03 RBC 4.53 M/mcL (3.82-4.97) 01/02/18 05:03 Hgb 14.0 g/dL (11.5-15.4) 01/02/18 05:03 Hct 45.0 % (35.3-44.9) H 01/02/18 05:03 MCV 99.3 fL (83.0-100.0) 01/02/18 05:03 MCH 30.9 pg (28.0-33.3) 01/02/18 05:03 MCHC 31.1 g/dL (31.6-35.5) L 01/02/18 05:03 RDW 15.2 % (11.5-14.5) H 01/02/18 05:03 Plt Count 331 K/mcL (140-400) 01/02/18 05:03 MPV 10.7 fL (9.4-12.4) 01/02/18 05:03 Immature Gran % 0.8 % (0-4) 01/02/18 05:03 Seg Neutrophils % 72.7 % 01/02/18 05:03 Lymphocytes % 21.1 % 01/02/18 05:03 Monocytes % 4.9 % 01/02/18 05:03 Eosinophils % 0.1 % 01/02/18 05:03 Basophils % 0.4 % 01/02/18 05:03 Neutrophils # 15.6 K/mcL (1.6-8.9) H 01/02/18 05:03 Lymphocytes # 4.5 K/mcL (0.6-4.6) 01/02/18 05:03 Monocytes # 1.1 K/mcL (0.0-1.3) 01/02/18 05:03 Eosinophils # 0.0 K/mcL (0.0-0.6) 01/02/18 05:03 Basophils # 0.1 K/mcL (0.0-0.2) 01/02/18 05:03 Platelet Estimate Slight increase (Normal) H 01/01/18 05:02 Smear Path Review See Below 01/01/18 10:38 ESR 65 mm/hr (0-15) H 12/31/17 05:47 PT 11.6 Seconds (9.4-12.1) 01/01/18 15:42 INR 1.0 01/01/18 15:42 APTT 31.3 Seconds (26.0-36.0) 01/01/18 15:42 Sample Site R Brach 01/01/18 16:27 ABG pH 7.32 pH Units (7.32-7.45) 01/01/18 16:27 ABG pCO2 46 mmHg (35-45) H 01/01/18 16:27 ABG pO2 62 mmHg (85-104) L 01/01/18 16:27 ABG HCO3 24 mEq/L (21-27) 01/01/18 16:27 ABG Total CO2 25 mEq/L (20-26) 01/01/18 16:27 ABG O2 Saturation 89 % (95-98) L 01/01/18 16:27 ABG Base Excess -3 mEq/L (-2 to 3) L 01/01/18 16:27 Petey Test N/A 01/01/18 16:27 O2 Delivery Device Room Air 01/01/18 16:27 Inspired O2 21.0 (1-15=lpm [id number]=%) 01/01/18 16:27 Sodium 138 mEq/L (136-145) 01/02/18 05:03 Potassium 4.1 mEq/L (3.5-5.1) 01/02/18 05:03 Chloride 111 mEq/L (98-107) H 01/02/18 05:03 Carbon Dioxide 19 mEq/L (23-29) L 01/02/18 05:03 BUN 43 mg/dL (6-20) H 01/02/18 05:03 Creatinine 2.07 mg/dL (0.60-1.20) H 01/02/18 05:03 Est GFR ( Amer) 30 (> 60) L 01/02/18 05:03 Est GFR (Non-Af Amer) 25 (> 60) L 01/02/18 05:03 BUN/Creatinine Ratio 21 (6-26) 01/02/18 05:03 Glucose 101 mg/dL (70-105) 01/02/18 05:03 POC Glucose 113 mg/dL (70-99) H 01/01/18 12:29 Calculated Osmolality 297 (280-300) 01/02/18 05:03 Lactic Acid 1.4 mmol/L (0.5-2.2) 01/01/18 14:06 Calcium 8.5 mg/dL (8.6-10.3) L 01/02/18 05:03 Phosphorus 2.8 mg/dL (2.7-4.5) 12/28/17 21:49 Magnesium 2.0 mg/dL (1.6-2.6) 12/28/17 21:49 Total Bilirubin 0.4 mg/dL (0.3-1.0) 01/01/18 15:42 Direct Bilirubin 0.1 mg/dL (0.0-0.2) 01/01/18 15:42 Indirect Bilirubin 0.3 mg/dL (0.0-1.2) 01/01/18 15:42 AST 17 Units/L (13-39) 01/01/18 15:42 ALT 20 Units/L (7-52) 01/01/18 15:42 Alkaline Phosphatase 143 Units/L (34-104) H 01/01/18 15:42 Lactate Dehydrogenase 147 Units/L (140-271) 01/02/18 05:03 Creatine Kinase 43 Units/L (30-223) 01/01/18 15:34 Troponin I 0.04 ng/mL (< 0.04) H* 12/30/17 21:13 C-Reactive Protein 17 mg/L (Less than 10) H 01/01/18 15:34 Serum Total Protein 6.5 g/dL (6.4-8.9) 01/01/18 15:42 Albumin 3.5 g/dL (3.5-5.7) 01/01/18 15:42 Globulin 3.0 g/dL (2.4-3.5) 01/01/18 15:42 Albumin/Globulin Ratio 1.2 (1.1-2.2) 01/01/18 15:42 Amylase 22 Units/L (29-103) L 01/01/18 15:34 Lipase 13 Units/L (11-82) 01/01/18 15:34 TSH 1.362 mcIU/mL (0.340-5.600) 12/28/17 21:49 Free T4 0.72 ng/dl (0.70-2.00) 12/28/17 21:49 Urine Color Yellow (Yellow) 01/02/18 06:50 Urine Clarity Cloudy (Clear) A 01/02/18 06:50 Urine pH 5.5 pH Units (5.0-8.0) 01/02/18 06:50 Ur Specific [place] 1.017 (1.010-1.025) 01/02/18 06:50 Urine Protein 30 mg/dL (Neg-Trace) H 01/02/18 06:50 Urine Glucose (UA) Normal mg/dL (Normal) 01/02/18 06:50 Urine Ketones Negative mg/dL (Negative) 01/02/18 06:50 Urine Blood Negative (Negative) 01/02/18 06:50 Urine Nitrite Negative (Negative) 01/02/18 06:50 Urine Bilirubin Small (Negative) H 01/02/18 06:50 Urine Urobilinogen Normal mg/dL (Normal) 01/02/18 06:50 Ur Leukocyte Esterase Negative (Negative) 01/02/18 06:50 Urine Microscopic RBC 3-5 per hpf (0-3) H 01/02/18 06:50 Urine Microscopic WBC 5-15 per hpf (0-3) H 01/02/18 06:50 Ur Squamous Epith Cells Many per lpf (None-Few) H 01/02/18 06:50 Urine Bacteria None Seen per hpf (None-Few) 01/02/18 06:50 Hyaline Casts Few per lpf (None-Few) 01/02/18 06:50 Ur Culture Indicated? NO. (NO) A 12/28/17 22:50 Nasal Screen MRSA (PCR) Negative (Negative) 01/01/18 08:00 Urine Opiates Screen Negative ng/mL (Srcnqy=584) 12/28/17 10:50 Ur Barbiturates Screen Negative ng/mL (Ooefqo=698) 12/28/17 10:50 Ur Phencyclidine Scrn Negative ng/mL (Cutoff=25) 12/28/17 10:50 Ur Amphetamines Screen Negative ng/mL (Toujtp=9397) 12/28/17 10:50 U Benzodiazepines Scrn Negative ng/mL (Fpicqj=937) 12/28/17 10:50 Urine Cocaine Screen Negative ng/mL (Cutoff= 300) 12/28/17 10:50 U Marijuana (THC) Screen Negative ng/mL (Cutoff = 50) 12/28/17 10:50 Ur Drug Screen Interp See Below 12/28/17 10:50 Rheumatoid Factor < 10 IU/mL (Less than 14) 01/01/18 15:34 Chlamy pneumoniae PCR Not Detected (Not Detect) 01/01/18 16:17 Adenovirus (PCR) Not Detected (Not Detect) 01/01/18 16:17 B. pertussis DNA (PCR) Not Detected (Not Detect) 01/01/18 16:17 B.parapertussis DNA PCR Not Detected (Not Detect) 01/01/18 16:17 Coronavirus OC43 (PCR) Not Detected (Not Detect) 01/01/18 16:17 Coronavirus HKU1 (PCR) Not Detected (Not Detect) 01/01/18 16:17 Coronavirus 229E (PCR) Not Detected (Not Detect) 01/01/18 16:17 Coronavirus NL63 (PCR) Not Detected (Not Detect) 01/01/18 16:17 Human Metapneumovir PCR Not Detected (Not Detect) 01/01/18 16:17 Influenza A (H1) PCR Not Detected (Not Detect) 01/01/18 16:17 Influ A (H1N1/09) PCR Not Detected (Not Detect) 01/01/18 16:17 Influenza A (H3) PCR Not Detected (Not Detect) 01/01/18 16:17 Influenza A Untype (PCR) Not Detected (Not Detect) 01/01/18 16:17 Influenza Type B (PCR) Not Detected (Not Detect) 01/01/18 16:17 M.pneumoniae DNA (PCR) Not Detected (Not Detect) 01/01/18 16:17 Parainfluenza 1 (PCR) Not Detected (Not Detect) 01/01/18 16:17 Parainfluenza 2 (PCR) Not Detected (Not Detect) 01/01/18 16:17 Parainfluenza 3 (PCR) Not Detected (Not Detect) 01/01/18 16:17 Parainfluenza 4 (PCR) Not Detected (Not Detect) 01/01/18 16:17 RSV (PCR) Not Detected (Not Detect) 01/01/18 16:17 Entero/Rhino (PCR) Not Detected (Not Detect) 01/01/18 16:17 Specimen Rejected Miscellaneous 01/02/18 08:48 - Impressions Impressions Abdomen/Pelvis CT 01/01/18 18:25 IMPRESSION: Severe diffuse hepatic steatosis. No acute abnormality in the abdomen or pelvis to explain patient's symptoms of elevated white blood cell count. D/ / 01/02/2018 05:36:59 Tam Acosta MD / [email or web address] Interpreting Provider: Tam Acosta MD Consult Discharge Plan - Plan Referrals: NONE,PCP [Primary Care Provider] -
--- NOTE | 2018-01-02 19:22 | Infectious Disease Progress No ---
Date of Encounter: 01/02/18 Time of Encounter: 14:00 - Assessment and Plan (1) Sepsis Current Visit: Yes Status: Suspected - Suspected sepsis with findings of Leukocytosis of 26.1, tachycardia in 110s on presentation - Source: unclear - Infective agent: unknown - Lactic acid 0.9 on 12/30, repeated to 1.4 on 01/01 - Sepsis has resolved with normalization of HR, RR. WBC remains high at 21.5, but improved from 25.0 - ESR of 65 on 01/01, CRP 17. RF <10 - Amylase, lipase wnl. - CK and LDH wnl. - Procalcitonin and HIV pending. - Patient reportedly had beg bugs per nursing report. Unclear if infection at this point. Possible rheum vs inflammation vs malignancy ROS difficult to obtain due to mental status Labs show no evidence of UTI but neutrophil predominance on cbc differential. Peripheral smear shows absolute neutrophilia, lymphocytosis and monocytosis. Red cell count, hemoglobin and hematocrit are increased. RDW is increased. Platelet count is increased. Red cells are normochromic normocytic. Platelets are small and granular. Leukocytes with slight left shift, atypical lymphocytes and monocytes are seen. The leukocytosis and thrombocytosis could be reactive, with the leukocytosis possibly in response to acute infection, tissue damage or other acute inflammatory process. Rule out causes of secondary erythrocytosis. Myeloproliferative disorder cannot be completely excluded. Blood cultures on 12/30 NG x2, 01/01 x1 Flu swab 12/30 negative. Respiratory infectious panel negative. CXR on 12/28 as well as 01/01 show no acute process CTA performed 12/30 showed no acute pulmonary abnormality or PE CT abdomen pelvis shows severe diffuse hepatic steatosis with no explanation of leukocytosis. Plan - No clear indication for antibiotics at this time - Low suspicion for infectious etiology at this time. More likely reactive vs inflammation. - ID will sign off at this time. Please reconsult at needed. Thank you for allowing up to participate in the care of this patient. Qualifiers: Sepsis type: sepsis due to unspecified organism Qualified Code(s): A41.9 - Sepsis, unspecified organism (2) Leukocytosis Current Visit: Yes Status: Acute Persistent leukocytosis of unclear etiology - Lower suspicion of infectious etiology. Differential includes reactive from suicide attempt vs inflammatory (rheum, vasculitis), infectious vs malignancy - WBC of 26.1 today which is uptrending from 18 which suggests more chronic etiology. - Meets 2/4 SIRS criteria yesterday as above. LA wnl. - No obvious source of infection and therefore will hold off on abx for now. Qualifiers: Leukocytosis type: other Qualified Code(s): D72.828 - Other elevated white blood cell count (3) Encephalopathy Current Visit: Yes Status: Acute Improving - Possibly medication induced vs less likely infectious - Patient is more responsive today Appreciate input of primary team as well as psychiatry (4) HTN (hypertension) Current Visit: Yes Status: Chronic Further management per primary team Qualifiers: Hypertension type: essential hypertension Qualified Code(s): I10 - Essential (primary) hypertension (5) Erythrocytosis Current Visit: Yes Status: Resolved Resolved, likely result of hemoconcentration Hematology following (6) Thrombocytosis Current Visit: Yes Status: Acute Resolved, likely result of hemoconcentration - Subjective Interval history: Patient was seen and examined up and since morning. She is more alert and is oriented 1 this morning. She does notably have a flat affect and does not respond all questions. She answers many questions with yes and the remainder she does not answer. She does state multiple times that she is sorry but is unable to further explain the reasoning to this response. When asked about dysuria or pain she does say yes and is having pain in the left flank but cannot describe symptoms any further. Infect Dis PN-Objective Data - Labs CBC & Chem 7: 01/02/18 05:03 01/02/18 05:03 Labs: Laboratory Results - last 24 hr 01/01/18 01/01/18 01/01/18 12:29 13:11 13:56 WBC RBC Hgb Hct MCV MCH MCHC RDW Plt Count MPV Immature Gran % Seg Neutrophils % Lymphocytes % Monocytes % Eosinophils % Basophils % Neutrophils # Lymphocytes # Monocytes # Eosinophils # Basophils # PT INR APTT Sample Site ABG pH ABG pCO2 ABG pO2 ABG HCO3 ABG Total CO2 ABG O2 Saturation ABG Base Excess Petey Test O2 Delivery Device Inspired O2 Sodium 139 Potassium 3.9 Chloride 102 Carbon Dioxide 21 L BUN 42 H Creatinine 3.32 H Est GFR ( Amer) 17 L Est GFR (Non-Af Amer) 14 L BUN/Creatinine Ratio 13 Glucose 120 H POC Glucose 113 H Calculated Osmolality 300 Lactic Acid Calcium 9.5 Total Bilirubin Direct Bilirubin Indirect Bilirubin AST ALT Alkaline Phosphatase Lactate Dehydrogenase Creatine Kinase C-Reactive Protein Serum Total Protein Albumin Globulin Albumin/Globulin Ratio Amylase Lipase Urine Color Urine Clarity Urine pH Ur Specific Confluence Urine Protein Urine Glucose (UA) Urine Ketones Urine Blood Urine Nitrite Urine Bilirubin Urine Urobilinogen Ur Leukocyte Esterase Urine Microscopic RBC Urine Microscopic WBC Ur Squamous Epith Cells Urine Bacteria Hyaline Casts Rheumatoid Factor Chlamy pneumoniae PCR Adenovirus (PCR) B. pertussis DNA (PCR) B.parapertussis DNA PCR Coronavirus OC43 (PCR) Coronavirus HKU1 (PCR) Coronavirus 229E (PCR) Coronavirus NL63 (PCR) Human Metapneumovir PCR Influenza A (H1) PCR Influ A (H1N1/09) PCR Influenza A (H3) PCR Influenza A Untype (PCR) Influenza Type B (PCR) M.pneumoniae DNA (PCR) Parainfluenza 1 (PCR) Parainfluenza 2 (PCR) Parainfluenza 3 (PCR) Parainfluenza 4 (PCR) RSV (PCR) Entero/Rhino (PCR) Specimen Rejected Volume 01/01/18 01/01/18 01/01/18 14:06 15:34 15:34 WBC RBC Hgb Hct MCV MCH MCHC RDW Plt Count MPV Immature Gran % Seg Neutrophils % Lymphocytes % Monocytes % Eosinophils % Basophils % Neutrophils # Lymphocytes # Monocytes # Eosinophils # Basophils # PT INR APTT Sample Site ABG pH ABG pCO2 ABG pO2 ABG HCO3 ABG Total CO2 ABG O2 Saturation ABG Base Excess Petey Test O2 Delivery Device Inspired O2 Sodium Potassium Chloride Carbon Dioxide BUN Creatinine Est GFR ( Amer) Est GFR (Non-Af Amer) BUN/Creatinine Ratio Glucose POC Glucose Calculated Osmolality Lactic Acid 1.4 Calcium Total Bilirubin Direct Bilirubin Indirect Bilirubin AST ALT Alkaline Phosphatase Lactate Dehydrogenase 140 Creatine Kinase 43 C-Reactive Protein 17 H Serum Total Protein Albumin Globulin Albumin/Globulin Ratio Amylase 22 L Lipase 13 Urine Color Urine Clarity Urine pH Ur Specific Confluence Urine Protein Urine Glucose (UA) Urine Ketones Urine Blood Urine Nitrite Urine Bilirubin Urine Urobilinogen Ur Leukocyte Esterase Urine Microscopic RBC Urine Microscopic WBC Ur Squamous Epith Cells Urine Bacteria Hyaline Casts Rheumatoid Factor < 10 Chlamy pneumoniae PCR Adenovirus (PCR) B. pertussis DNA (PCR) B.parapertussis DNA PCR Coronavirus OC43 (PCR) Coronavirus HKU1 (PCR) Coronavirus 229E (PCR) Coronavirus NL63 (PCR) Human Metapneumovir PCR Influenza A (H1) PCR Influ A (H1N1) PCR Influenza A (H3) PCR Influenza A Untype (PCR) Influenza Type B (PCR) M.pneumoniae DNA (PCR) Parainfluenza 1 (PCR) Parainfluenza 2 (PCR) Parainfluenza 3 (PCR) Parainfluenza 4 (PCR) RSV (PCR) Entero/Rhino (PCR) Specimen Rejected 01/01/18 01/01/18 01/01/18 15:42 15:42 15:42 WBC 25.0 H RBC 4.63 Hgb 14.2 D Hct 45.5 H MCV 98.3 MCH 30.7 MCHC 31.2 L RDW 15.5 H Plt Count 396 MPV 10.6 Immature Gran % 0.9 Seg Neutrophils % 68.9 Lymphocytes % 23.6 Monocytes % 6.0 Eosinophils % 0.2 Basophils % 0.4 Neutrophils # 17.2 H Lymphocytes # 5.9 H Monocytes # 1.5 H Eosinophils # 0.0 Basophils # 0.1 PT 11.6 INR 1.0 APTT 31.3 Sample Site ABG pH ABG pCO2 ABG pO2 ABG HCO3 ABG Total CO2 ABG O2 Saturation ABG Base Excess Petey Test O2 Delivery Device Inspired O2 Sodium Potassium Chloride Carbon Dioxide BUN Creatinine Est GFR ( Amer) Est GFR (Non-Af Amer) BUN/Creatinine Ratio Glucose POC Glucose Calculated Osmolality Lactic Acid Calcium Total Bilirubin 0.4 Direct Bilirubin 0.1 Indirect Bilirubin 0.3 AST 17 ALT 20 Alkaline Phosphatase 143 H Lactate Dehydrogenase Creatine Kinase C-Reactive Protein Serum Total Protein 6.5 Albumin 3.5 Globulin 3.0 Albumin/Globulin Ratio 1.2 Amylase Lipase Urine Color Urine Clarity Urine pH Ur Specific Confluence Urine Protein Urine Glucose (UA) Urine Ketones Urine Blood Urine Nitrite Urine Bilirubin Urine Urobilinogen Ur Leukocyte Esterase Urine Microscopic RBC Urine Microscopic WBC Ur Squamous Epith Cells Urine Bacteria Hyaline Casts Rheumatoid Factor Chlamy pneumoniae PCR Adenovirus (PCR) B. pertussis DNA (PCR) B.parapertussis DNA PCR Coronavirus OC43 (PCR) Coronavirus HKU1 (PCR) Coronavirus 229E (PCR) Coronavirus NL63 (PCR) Human Metapneumovir PCR Influenza A (H1) PCR Influ A (H1N1) PCR Influenza A (H3) PCR Influenza A Untype (PCR) Influenza Type B (PCR) M.pneumoniae DNA (PCR) Parainfluenza 1 (PCR) Parainfluenza 2 (PCR) Parainfluenza 3 (PCR) Parainfluenza 4 (PCR) RSV (PCR) Entero/Rhino (PCR) Specimen Rejected 01/01/18 01/01/18 01/02/18 16:17 16:27 05:03 WBC 21.5 H RBC 4.53 Hgb 14.0 Hct 45.0 H MCV 99.3 MCH 30.9 MCHC 31.1 L RDW 15.2 H Plt Count 331 MPV 10.7 Immature Gran % 0.8 Seg Neutrophils % 72.7 Lymphocytes % 21.1 Monocytes % 4.9 Eosinophils % 0.1 Basophils % 0.4 Neutrophils # 15.6 H Lymphocytes # 4.5 Monocytes # 1.1 Eosinophils # 0.0 Basophils # 0.1 PT INR APTT Sample Site R Brach ABG pH 7.32 ABG pCO2 46 H ABG pO2 62 L ABG HCO3 24 ABG Total CO2 25 ABG O2 Saturation 89 L ABG Base Excess -3 L Petey Test N/A O2 Delivery Device Room Air Inspired O2 21.0 Sodium Potassium Chloride Carbon Dioxide BUN Creatinine Est GFR ( Amer) Est GFR (Non-Af Amer) BUN/Creatinine Ratio Glucose POC Glucose Calculated Osmolality Lactic Acid Calcium Total Bilirubin Direct Bilirubin Indirect Bilirubin AST ALT Alkaline Phosphatase Lactate Dehydrogenase Creatine Kinase C-Reactive Protein Serum Total Protein Albumin Globulin Albumin/Globulin Ratio Amylase Lipase Urine Color Urine Clarity Urine pH Ur Specific Confluence Urine Protein Urine Glucose (UA) Urine Ketones Urine Blood Urine Nitrite Urine Bilirubin Urine Urobilinogen Ur Leukocyte Esterase Urine Microscopic RBC Urine Microscopic WBC Ur Squamous Epith Cells Urine Bacteria Hyaline Casts Rheumatoid Factor Chlamy pneumoniae PCR Not Detected Adenovirus (PCR) Not Detected B. pertussis DNA (PCR) Not Detected B.parapertussis DNA PCR Not Detected Coronavirus OC43 (PCR) Not Detected Coronavirus HKU1 (PCR) Not Detected Coronavirus 229E (PCR) Not Detected Coronavirus NL63 (PCR) Not Detected Human Metapneumovir PCR Not Detected Influenza A (H1) PCR Not Detected Influ A (H1N1/09) PCR Not Detected Influenza A (H3) PCR Not Detected Influenza A Untype (PCR) Not Detected Influenza Type B (PCR) Not Detected M.pneumoniae DNA (PCR) Not Detected Parainfluenza 1 (PCR) Not Detected Parainfluenza 2 (PCR) Not Detected Parainfluenza 3 (PCR) Not Detected Parainfluenza 4 (PCR) Not Detected RSV (PCR) Not Detected Entero/Rhino (PCR) Not Detected Specimen Rejected 01/02/18 01/02/18 01/02/18 05:03 05:03 06:50 WBC RBC Hgb Hct MCV MCH MCHC RDW Plt Count MPV Immature Gran % Seg Neutrophils % Lymphocytes % Monocytes % Eosinophils % Basophils % Neutrophils # Lymphocytes # Monocytes # Eosinophils # Basophils # PT INR APTT Sample Site ABG pH ABG pCO2 ABG pO2 ABG HCO3 ABG Total CO2 ABG O2 Saturation ABG Base Excess Petey Test O2 Delivery Device Inspired O2 Sodium 138 Potassium 4.1 Chloride 111 H Carbon Dioxide 19 L BUN 43 H Creatinine 2.07 H Est GFR ( Amer) 30 L Est GFR (Non-Af Amer) 25 L BUN/Creatinine Ratio 21 Glucose 101 POC Glucose Calculated Osmolality 297 Lactic Acid Calcium 8.5 L Total Bilirubin Direct Bilirubin Indirect Bilirubin AST ALT Alkaline Phosphatase Lactate Dehydrogenase 147 Creatine Kinase C-Reactive Protein Serum Total Protein Albumin Globulin Albumin/Globulin Ratio Amylase Lipase Urine Color Yellow Urine Clarity Cloudy A Urine pH 5.5 Ur Specific Confluence 1.017 Urine Protein 30 H Urine Glucose (UA) Normal Urine Ketones Negative Urine Blood Negative Urine Nitrite Negative Urine Bilirubin Small H Urine Urobilinogen Normal Ur Leukocyte Esterase Negative Urine Microscopic RBC 3-5 H Urine Microscopic WBC 5-15 H Ur Squamous Epith Cells Many H Urine Bacteria None Seen Hyaline Casts Few Rheumatoid Factor Chlamy pneumoniae PCR Adenovirus (PCR) B. pertussis DNA (PCR) B.parapertussis DNA PCR Coronavirus OC43 (PCR) Coronavirus HKU1 (PCR) Coronavirus 229E (PCR) Coronavirus NL63 (PCR) Human Metapneumovir PCR Influenza A (H1) PCR Influ A (H1N1/09) PCR Influenza A (H3) PCR Influenza A Untype (PCR) Influenza Type B (PCR) M.pneumoniae DNA (PCR) Parainfluenza 1 (PCR) Parainfluenza 2 (PCR) Parainfluenza 3 (PCR) Parainfluenza 4 (PCR) RSV (PCR) Entero/Rhino (PCR) Specimen Rejected 01/02/18 08:48 WBC RBC Hgb Hct MCV MCH MCHC RDW Plt Count MPV Immature Gran % Seg Neutrophils % Lymphocytes % Monocytes % Eosinophils % Basophils % Neutrophils # Lymphocytes # Monocytes # Eosinophils # Basophils # PT INR APTT Sample Site ABG pH ABG pCO2 ABG pO2 ABG HCO3 ABG Total CO2 ABG O2 Saturation ABG Base Excess Petey Test O2 Delivery Device Inspired O2 Sodium Potassium Chloride Carbon Dioxide BUN Creatinine Est GFR ( Amer) Est GFR (Non-Af Amer) BUN/Creatinine Ratio Glucose POC Glucose Calculated Osmolality Lactic Acid Calcium Total Bilirubin Direct Bilirubin Indirect Bilirubin AST ALT Alkaline Phosphatase Lactate Dehydrogenase Creatine Kinase C-Reactive Protein Serum Total Protein Albumin Globulin Albumin/Globulin Ratio Amylase Lipase Urine Color Urine Clarity Urine pH Ur Specific Confluence Urine Protein Urine Glucose (UA) Urine Ketones Urine Blood Urine Nitrite Urine Bilirubin Urine Urobilinogen Ur Leukocyte Esterase Urine Microscopic RBC Urine Microscopic WBC Ur Squamous Epith Cells Urine Bacteria Hyaline Casts Rheumatoid Factor Chlamy pneumoniae PCR Adenovirus (PCR) B. pertussis DNA (PCR) B.parapertussis DNA PCR Coronavirus OC43 (PCR) Coronavirus HKU1 (PCR) Coronavirus 229E (PCR) Coronavirus NL63 (PCR) Human Metapneumovir PCR Influenza A (H1) PCR Influ A (H1N1/09) PCR Influenza A (H3) PCR Influenza A Untype (PCR) Influenza Type B (PCR) M.pneumoniae DNA (PCR) Parainfluenza 1 (PCR) Parainfluenza 2 (PCR) Parainfluenza 3 (PCR) Parainfluenza 4 (PCR) RSV (PCR) Entero/Rhino (PCR) Specimen Rejected Miscellaneous Cultures: Cultures 01/02/18 11:23 Blood Culture - Preliminary Peripheral Venipuncture Culture is incubating and being continuously monitored for growth. Final report to follow. 01/01/18 08:46 Blood Culture - Preliminary Peripheral Venipuncture Culture is incubating and being continuously monitored for growth. Final report to follow. 12/30/17 09:06 Influenza Types A,B Antigen - Final Nasopharyngeal 12/28/17 22:01 Blood Culture - Preliminary Peripheral Venipuncture Culture is incubating and being continuously monitored for growth. Final report to follow. 12/28/17 21:49 Blood Culture - Preliminary Peripheral Venipuncture Culture is incubating and being continuously mon itored for growth. Final report to follow. Serology 01/02/18 01/01/18 01/01/18 Range/Units 06:50 16:17 08:00 Urine Color Yellow (Yellow) Urine Clarity Cloudy A (Clear) Urine pH 5.5 (5.0-8.0) pH Units Ur Specific Confluence 1.017 (1.010-1.025) Urine Protein 30 H (Neg-Trace) mg/dL Urine Glucose (UA) Normal (Normal) mg/dL Urine Ketones Negative (Negative) mg/dL Urine Blood Negative (Negative) Urine Nitrite Negative (Negative) Urine Bilirubin Small H (Negative) Urine Urobilinogen Normal (Normal) mg/dL Ur Leukocyte Esterase Negative (Negative) Urine Microscopic RBC 3-5 H (0-3) per hpf Urine Microscopic WBC 5-15 H (0-3) per hpf Ur Squamous Epith Cells Many H (None-Few) per lpf Urine Bacteria None Seen (None-Few) per hpf Hyaline Casts Few (None-Few) per lpf Ur Culture Indicated? (NO) Nasal Screen MRSA (PCR) Negative (Negative) Chlamy pneumoniae PCR Not Detected (Not Detect) Adenovirus (PCR) Not Detected (Not Detect) B. pertussis DNA (PCR) Not Detected (Not Detect) B.parapertussis DNA PCR Not Detected (Not Detect) Coronavirus OC43 (PCR) Not Detected (Not Detect) Coronavirus HKU1 (PCR) Not Detected (Not Detect) Coronavirus 229E (PCR) Not Detected (Not Detect) Coronavirus NL63 (PCR) Not Detected (Not Detect) Human Metapneumovir PCR Not Detected (Not Detect) Influenza A (H1) PCR Not Detected (Not Detect) Influ A (H1N1/09) PCR Not Detected (Not Detect) Influenza A (H3) PCR Not Detected (Not Detect) Influenza A Untype (PCR) Not Detected (Not Detect) Influenza Type B (PCR) Not Detected (Not Detect) M.pneumoniae DNA (PCR) Not Detected (Not Detect) Parainfluenza 1 (PCR) Not Detected (Not Detect) Parainfluenza 2 (PCR) Not Detected (Not Detect) Parainfluenza 3 (PCR) Not Detected (Not Detect) Parainfluenza 4 (PCR) Not Detected (Not Detect) RSV (PCR) Not Detected (Not Detect) Entero/Rhino (PCR) Not Detected (Not Detect) 12/28/17 Range/Units 22:50 Urine Color Yellow (Yellow) Urine Clarity Clear (Clear) Urine pH 7.5 (5.0-8.0) pH Units Ur Specific Confluence 1.016 (1.010-1.025) Urine Protein Negative (Neg-Trace) mg/dL Urine Glucose (UA) Normal (Normal) mg/dL Urine Ketones Trace H (Negative) mg/dL Urine Blood Negative (Negative) Urine Nitrite Negative (Negative) Urine Bilirubin Negative (Negative) Urine Urobilinogen Normal (Normal) mg/dL Ur Leukocyte Esterase Small H (Negative) Urine Microscopic RBC 0-3 (0-3) per hpf Urine Microscopic WBC 0-3 (0-3) per hpf Ur Squamous Epith Cells Many H (None-Few) per lpf Urine Bacteria None Seen (None-Few) per hpf Hyaline Casts None Seen (None-Few) per lpf Ur Culture Indicated? NO. A (NO) Nasal Screen MRSA (PCR) (Negative) Chlamy pneumoniae PCR (Not Detect) Adenovirus (PCR) (Not Detect) B. pertussis DNA (PCR) (Not Detect) B.parapertussis DNA PCR (Not Detect) Coronavirus OC43 (PCR) (Not Detect) Coronavirus HKU1 (PCR) (Not Detect) Coronavirus 229E (PCR) (Not Detect) Coronavirus NL63 (PCR) (Not Detect) Human Metapneumovir PCR (Not Detect) Influenza A (H1) PCR (Not Detect) Influ A (H1N1/09) PCR (Not Detect) Influenza A (H3) PCR (Not Detect) Influenza A Untype (PCR) (Not Detect) Influenza Type B (PCR) (Not Detect) M.pneumoniae DNA (PCR) (Not Detect) Parainfluenza 1 (PCR) (Not Detect) Parainfluenza 2 (PCR) (Not Detect) Parainfluenza 3 (PCR) (Not Detect) Parainfluenza 4 (PCR) (Not Detect) RSV (PCR) (Not Detect) Entero/Rhino (PCR) (Not Detect) - Impressions Impressions Abdomen/Pelvis CT 01/01/18 18:25 IMPRESSION: Severe diffuse hepatic steatosis. No acute abnormality in the abdomen or pelvis to explain patient's symptoms of elevated white blood cell count. D/ / 01/02/2018 05:36:59 Tam Acosta MD / [email or web address] Interpreting Provider: Tam Acosta MD Exam - Constitutional Vitals: Temp Pulse Resp BP Pulse Ox 98.8 F 86 16 165/84 96 01/02/18 11:13 01/02/18 11:13 01/02/18 11:13 01/02/18 11:13 01/02/18 11:13 Exam: Gen.: Vitals noted. No acute distress. AAOx1 HEENT: PERRL/EOMI, oropharynx clear, Normocephalic, atraumatic, MMM, dilated pupils Cardiac: RRR, no murmur, +S1/S2 Pulmonary: CTA bilaterally, no wheezes, rales or rhonchi, equal chest expansion Abdomen: soft, nontender, BS noted, no guarding, no rebound. MSK: ROM intact, no joint swelling noted Extremities: no BLE edema, nontender calf, no cyanosis or clubbing. Multiple punctate lesions covering lower extremities, possible bug bites. Well healing s cratches without evidence of infection. Neuro: A&Ox1, moves all extremities, no focal deficits Psych: Flat affect, answers questions but does not appear appropriate Consult Discharge Plan - Plan Referrals: NONE,PCP [Primary Care Provider] - - Attending Attestation I examined this patient and my medical decision-making was reviewed with the Resident Physician. I agree with the documented findings, disposition and treatment plan as described except to the extent set forth below. Discussed the case with psychiatry as well. As of now we do not have an infectious etiology. Consider stopping all antibiotics and observing. Await hematology recommendation and await peripheral smear.
--- NOTE | 2018-01-02 19:24 | Oncology Inp Progress Note ---
Date of Encounter: 01/02/18 Time of Encounter: 10:30 (1) Leukocytosis Current Visit: Yes Status: Acute Assessment and plan: Neutrophil predominant leukocytosis (with concomitant lymphocytosis and monocytosis) Hgb and plt count are normal Unsure of chronicity of lab values as there are no comparisons, WBC has been labile at times but overall trending upward Abdominal imaging-No acute findings, no splenomegaly, hepatic steatosis ID consulted for sepsis criteria- no clear infectious etiology/agent has been identified thus far,therefore, no ATB therapy has been initiated Patient has been afebrile, TMAX 100.1 on admission DAVIDE of unknown origin-holding nephrotoxic meds-awaiting nephro evaluation Plan: LDH is normal Blood smear appears benign with no immature cell forms, neutrophil prominent leukocytosis without left shift Given information we have thus far, this does not appear to be a hematologic condition and more so favors a reactive leukocytosis (however, I am unclear of other source), therefore, we will hold on further hematologic workup at this time as we continue to monitor cell count trends Reactive etiology may be secondary to medication/recent suicidal attempt, continue to look for infectious cause as well, appreciate recommendations per ID Hematologic etiology would not explain her symptom presentation or encephalo johanne otherwise, recommend continued workup per hospitalist team We will continue to trend her WBC counts Qualifiers: Leukocytosis type: other Qualified Code(s): D72.828 - Other elevated white blood cell count Oncology: Subj Interval history: Ms. Patel is resting in her chair at time of visit. She is alert today. She answers minimal questions but is able to tell me her name and the month she was born (could not recall day or year). She did not recall the events which led to her presentation or tell me that she was in the hospital. She does not follow commands well. She denies pain, nausea, vomiting. She has small erythematous lesions and scratches to her BLE which she states are from her cats. - Constitutional Vitals: Vital Signs Temp Pulse Resp BP Pulse Ox 01/02/18 11:13 98.8 F 86 16 165/84 96 01/02/18 10:09 96 01/02/18 06:59 98.2 F 96 16 161/82 96 01/02/18 05:00 97.6 F 17 174/90 96 01/02/18 01:02 97.3 F L 84 17 153/83 10/25/18 21:00 97.9 F 75 16 111/58 95 01/01/18 17:17 76 16 127/73 95 01/01/18 16:47 97.7 F 76 16 110/74 94 01/01/18 16:21 60 16 92/61 95 01/01/18 15:57 73 16 102/58 95 01/01/18 15:43 77 16 97/63 95 01/01/18 14:39 16 103/65 95 Intake and Output 01/01/18 01/02/18 01/02/18 23:59 07:59 15:59 Intake Total 0 / 0 1000 / 1000 1240 / 1240 Output Total 1350 / 1350 0 / 0 Balance 0 / 0 -350 / -350 1240 / 1240 Intake: IV Fluids 1000 / 1000 1000 / 1000 0.9 % Sodium Chloride 1,000 ML 1000 / 1000 1000 / 1000 @ 150 mls/hr IVC .Q6H40M BECK Rx #:[id number] Oral 0 / 0 0 / 0 240 / 240 Output: Urine 0 / 0 Straight Cath 1350 / 1350 Other: Meal Dinner Lunch Percent of Meal Consumed 0% 0% # Voids 0 Weight 103.4 kg Patient Weight 01/02/18 23:59 Weight 103.4 kg General appearance: no acute distress, no febrile - Head Head exam: Present: atraumatic - ENT ENT exam: Present: mucous membranes moist - Respiratory Respiratory exam: Present: CTAB. Absent: respiratory distress - Cardiovascular Cardiovascular exam: Present: RRR, +S1, +S2 - GI/Abdominal GI/Abdominal exam: Present: normal bowel sounds, soft. Absent: tenderness - Extremities Exam Extremities exam: Absent: calf tenderness - Neurological Exam Neurological exam: Present: alert, no focal deficits Additional comments: does not answer questions appropriately or follow commands, answers in short sentences or states "I don't know", oriented only to name - Psychiatric Psychiatric exam: Present: normal affect, normal mood - Skin Skin exam: Present: dry, intact, normal color, warm Additional comments: rash/scratch munson to BLE Oncology: Obj Data - Labs CBC & Chem 7: 01/03/18 05:58 01/03/18 05:58 - Impressions Impressions Abdomen/Pelvis CT 01/01/18 18:25 IMPRESSION: Severe diffuse hepatic steatosis. No acute abnormality in the abdomen or pelvis to explain patient's symptoms of elevated white blood cell count. D/ / 01/02/2018 05:36:59 Tam Acosta MD / tkyer Interpreting Provider: Tam Acosta MD - ABG Interpretation ABG results: ABG ABG pH 7.32 pH Units (7.32-7.45) 01/01/18 16:27 ABG pCO2 46 mmHg (35-45) H 01/01/18 16:27 ABG pO2 62 mmHg (85-104) L 01/01/18 16:27 ABG O2 Saturation 89 % (95-98) L 01/01/18 16:27 PT/INR, D-dimer PT 11.6 Seconds (9.4-12.1) 01/01/18 15:42 Consult Discharge Plan - Plan Referrals: NONE,PCP [Primary Care Provider] - Inpatient Charges Provider: Monica Kimble CNP Follow up - Inpatient: [id number]
[2018-01-03] MEDS: *HR* Heparin 5,000 UNIT/ML VIAL SQ SCH ×2 (05:50→17:46)
[2018-01-03 06:17] LABS: Basophils # 0.1 K/mcL (0.0-0.2); Basophils % 0.6 %; Eosinophils # 0.1 K/mcL (0.0-0.6); Eosinophils % 0.6 %; Hematocrit 43.7 % (35.3-44.9); Hemoglobin 14.1 g/dL (11.5-15.4); Immature Granulocytes % 0.7 % (0-4); Lymphocytes % 25.1 %; Mean Corpuscular HGB Conc 32.3 g/dL (31.6-35.5); Mean Platelet Volume 10.7 fL (9.4-12.4); Monocytes % 4.8 %; Neutrophils # 13.5 K/mcL (1.6-8.9); Platelet Count 388 K/mcL (140-400); Red Blood Count 4.55 M/mcL (3.82-4.97); Red Cell Distribution Width 14.9 % (11.5-14.5); Segmented Neutrophils % 68.2 %
[2018-01-03 06:36] LABS: BUN/Creatinine Ratio 33 (6-26); Blood Urea Nitrogen 33 mg/dL (6-20); Calcium 9.7 mg/dL (8.6-10.3); Carbon Dioxide 23 mEq/L (23-29); Chloride 106 mEq/L (98-107); Glucose 108 mg/dL (70-105); Osmolality,Calculated 294 (280-300); Potassium 3.8 mEq/L (3.5-5.1); Sodium 138 mEq/L (136-145); eGFR For Non-African Americans 56 (> 60)
--- NOTE | 2018-01-03 07:06 | Event Note ---
Date of Encounter: 01/03/18 Time of Encounter: 07:03 Nephrology Chart Review With resolution of the multifactorial, non-oliguric DAVIDE (most likely from the CTA contrast, hypotension and the loss of renal autoregulation while on an MICKEY), her eGFR is now returning to the 50s as noted to be consistent with her baseline. I will sign-off at this point, and would recommend resuming her antihypertensive meds slowly and spread out titration over time. Would recommend outpt nephrology follow up in about 2-4 weeks with a BMP to be checked about 1 week after d/c. Thank you for having consulted the [facility].
[2018-01-03] MEDS: levETIRAcetam 250 MG TABLET PO SCH (07:56)
[2018-01-03] MEDS: Aspirin 81 MG TAB.CHEW PO SCH (07:56)
[2018-01-03] MEDS: Nystatin POWDER 30 GM BOTTLE TP SCH (07:56)
[2018-01-03] MEDS: amLODIPine 5 MG TABLET PO SCH (07:56)
--- NOTE | 2018-01-03 07:59 | Internal Med Progress Note ---
Hospitalist Progress Note - Encounter Date of Encounter: 01/03/18 Time of Encounter: 07:59 - Subjective Interval History: Patient seen and examined. She is walking around the room wiping down the window and furniture. Patient afebrile overnight and leukocytosis has improved. Patient is progressing back to baseline. - Exam Vitals: Temp Pulse Resp BP Pulse Ox 97.9 F 80 16 147/76 99 01/03/18 07:12 01/03/18 07:12 01/03/18 07:12 01/03/18 07:12 01/03/18 07:12 Exam: General appearance: Present: cooperative, A&O X 2, no acute distress, answers questions appropriately Exam: Awake, pleasant, resting comfortably in bed - Head Head exam: Present: atraumatic, normocephalic - Eye Eye exam: Present: pupil dilated, EOMI, conjuntiva pink, sclera anicteric - ENT ENT exam: Present: mucous membranes moist - Neck Neck exam general surgery: Present: supple, trachea midline. Absent: lym phadenopathy - Respiratory Respiratory exam: Latest neck CTAB. Absent: accessory muscle use, rales, rhonchi, wheezes - Cardiovascular Cardiovascular exam: Present: RRR, +S1, +S2. Absent: diastolic murmur, gallop, rubs, systolic murmur - GI/Abdominal GI/Abdominal exam: Present: normal bowel sounds, soft, no peritoneal signs. Absent: distended, tenderness - Extremities Exam Extremities exam: Present: warm, radial pulses palpable and symmetrical. Absent: calf tenderness, cyanotic, pedal edema - Neurological Exam Neurological exam: Present: CN II-XII intact, oriented X2, no focal deficits. Absent: pronater drift, facial droop, speech deficit - Psychiatric Psychiatric exam: Present: normal affect, normal mood - Skin Skin exam: Present: dry, warm, no rash - Assessment and Plan (1) DAVIDE (acute kidney injury) Current Visit: Yes Status: Resolved Assessment and Plan: DAVIDE with Cr 3.32 in the setting of hypotension, Was given fluid bolus and maintenance fluid at 150 ml/hr. Continue holding lisinopril, chlorthalidone. Cr trending down, patient not oliguric anymore. Nephrology following (2) Sepsis Current Visit: Yes Status: Resolved Assessment and Plan: Leukocytosis trending down, no source of infection Increase in mature lymphocytes, oncology following Chest x-ray was unremarkable. ESR: 65, MRSA swab negative, Normal lactic acid. Respiratory infection culture normal. Blood, Sputum cultures show no growth to date Antibiotics discontinued per ID recommendations Continue to monitor (3) Delirium due to known physiological condition Current Visit: Yes Status: Acute Assessment and Plan: Patient has delirium and lacks the capacity to make medical decisions regarding her healthcare. Per recommendations of psych, treat delirium with low-dose of high potency antipsychotics, Haldol 0.5 mg 3 times a day as a standing order. Give Haldol IV if patient is refusing treatment (4) Suicidal behavior Current Visit: Yes Status: Chronic Assessment and Plan: Patient was initially admitted after a suicide attempt. [place] slipped now , patient has delirium and lacks the capacity to make medical decisions regarding her healthcare. Patient had episode of suicidal behavior 2 weeks ago when she overdosed on Haldol. Patient denies current suicidal thoughts. On recommendations of psych, treat delirium with low-dose of high potency antipsychotics, Haldol 0.5 mg 3 times a day as a standing order. Give Haldol IV if patient is refusing treatment Anticipate voluntary transfer to for continued psych treatment once condition improves (5) Bipolar disorder Current Visit: Yes Status: Chronic Assessment and Plan: Patient was previously on Seroquel for bipolar disorder. However patient became hypotensive and somnolent after administration. Switched to Haldol per psych. (6) HTN (hypertension) Current Visit: Yes Status: Chronic Assessment and Plan: Holding randall inhibitor and chlorthalidone because of DAVIDE. Continue 5 mg amlodipine. Patient given IV fluids due to hypotension which is now resolved Her most recent blood pressure is stable (7) Seizure disorder Current Visit: No Status: Chronic Assessment and Plan: History of epilepsy, continue Keppra 500mg daily (8) Morbid obesity with BMI of 40.0-44.9, adult Current Visit: Yes Status: Chronic Assessment and Plan: BMI 41.9 Diet modification and exercise DVT Prophylaxis: Heparin subcutaneous TID - Time Spent with Patient Total time spent is greater than 50% in coordination of care (as documented) at patient's floor/unit and/or counseling patient: Internal Medicine: Result - Labs CBC & Chem 7: 01/03/18 05:58 01/03/18 05:58 Labs: Short CBC 01/03/18 Range/Units 05:58 WBC 19.7 H (4.3-11.1) K/mcL Hgb 14.1 (11.5-15.4) g/dL Hct 43.7 (35.3-44.9) % Plt Count 388 (140-400) K/mcL Neutrophils # 13.5 H (1.6-8.9) K/mcL BMP 01/03/18 05:58 Sodium 138 Potassium 3.8 Chloride 106 Carbon Dioxide 23 BUN 33 H Creatinine 1.01 Glucose 108 H Calcium 9.7 - ABG Interpretation ABG results: ABG ABG pH 7.32 pH Units (7.32-7.45) 01/01/18 16:27 ABG pCO2 46 mmHg (35-45) H 01/01/18 16:27 ABG pO2 62 mmHg (85-104) L 01/01/18 16:27 ABG O2 Saturation 89 % (95-98) L 01/01/18 16:27 PT/INR, D-dimer PT 11.6 Seconds (9.4-12.1) 01/01/18 15:42 - Pulse Oximetry Interpretation Digit-Finger Pulse Oximetry Readin (On RA) - Impressions Impressions Brain MRI 01/02/18 12:51 IMPRESSION: No acute intracranial abnormality. D/ / Cristofer Powell / Cristofer Powell Interpreting Provider: Cristofer Powell Consult Discharge Plan - Plan Referrals: NONE,PCP [Primary Care Provider] - (2) Sepsis Qualifiers: Sepsis type: sepsis due to unspecified organism Qualified Code(s): A41.9 - Sepsis, unspecified organism (4) Suicidal behavior Qualifiers: Attempted self-injury: with attempted self-injury Qualified Code(s): T14.91XA - Suicide attempt, initial encounter (5) Bipolar disorder Qualifiers: Active/Remission status: remission status unspecified Qualified Code(s): F31.9 - Bipolar disorder, unspecified (6) HTN (hypertension) Qualifiers: Hypertension type: essential hypertension Qualified Code(s): I10 - Essential (primary) hypertension
--- NOTE | 2018-01-03 13:56 | Discharge Summary ---
<Saul Robertson - Last Filed: 01/03/18 17:42> - NOTES TO OUTPATIENT PROVIDER Notes to Outpatient Provider: Patient transferred to inpatient psychiatric unit for continued psych evaluation. Would recommend outpt nephrology follow up in about 2-4 weeks with a BMP to be checked about 1 week after d/c. Orders not resulted at time of discharge: Pending orders 01/01/18 07:47 Sputum Culture [Culture,Sputum with Gram Stain] [RM] Stat 01/01/18 08:48 Culture,Blood [BC] Routine 01/01/18 15:34 RAHEEM Titer by IFA Routine HIV Qualitative PCR(Detection) Routine Procalcitonin Routine 01/02/18 04:00 Hepatitis Prof.(Routine A,B,C) Routine 01/02/18 11:23 Culture,Blood [BC] Stat Date of Encounter: 01/03/18 Time of Encounter: 10:30 - Discharge Diagnosis (1) Suicidal behavior Priority: Primary Status: Chronic Assessment and Plan: Patient was initially admitted after a suicide attempt. [place] slipped now , patient has delirium and lacks the capacity to make medical decisions regarding her healthcare. Patient had episode of suicidal behavior 2 weeks ago when she overdosed on Haldol. Patient denies current suicidal thoughts. On recommendations of psych, treat delirium with low-dose of high potency antipsychotics, Haldol 0.5 mg 3 times a day as a standing order. Give Haldol IV if patient is refusing treatment Anticipate voluntary transfer to for continued psych treatment once condition improves Qualifiers: Attempted self-injury: with attempted self-injury Qualified Code(s): T14.91XA - Suicide attempt, initial encounter (2) Bipolar disorder Priority: Secondary Status: Chronic Assessment and Plan: Patient was previously on Seroquel for bipolar disorder. However patient became hypotensive and somnolent after administration. Switched to Haldol per psych recommendation. Qualifiers: Active/Remission status: remission status unspecified Qualified Code(s): F31.9 - Bipolar disorder, unspecified (3) Delirium due to known physiological condition Priority: Secondary Status: Acute Assessment and Plan: Patient has delirium and lacks the capacity to make medical decisions regarding her healthcare. Per recommendations of psych, treat delirium with low-dose of high potency antipsychotics, Haldol 0.5 mg 3 times a day as a standing order. Give Haldol IM if patient is refusing treatment (4) HTN (hypertension) Priority: Secondary Status: Chronic Assessment and Plan: Holding randall inhibitor and chlorthalidone because of DAVIDE. Continue 5 mg amlodipine. Patient was previously given IV fluids due to hypotension which is now resolved Her most recent blood pressure is stable Qualifiers: Hypertension type: essential hypertension Qualified Code(s): I10 - Essential (primary) hypertension (5) Sepsis Priority: Secondary Status: Resolved Assessment and Plan: Leukocytosis trending down, no source of infection Increase in mature lymphocytes, oncology following Chest x-ray was unremarkable. ESR: 65, MRSA swab negative, Normal lactic acid. Respiratory infection culture normal. Blood, Sputum cultures show no growth to date Antibiotics discontinued per ID recommendations Continue to monitor Qualifiers: Sepsis type: sepsis due to unspecified organism Qualified Code(s): A41.9 - Sepsis, unspecified organism (6) Seizure disorder Priority: Secondary Status: Chronic Assessment and Plan: History of epilepsy, continue Keppra 500mg daily (7) Morbid obesity with BMI of 40.0-44.9, adult Priority: Secondary Status: Chronic Assessment and Plan: BMI 41.9 Diet modification and exercise (8) DAVIDE (acute kidney injury) Priority: Primary Status: Resolved Assessment and Plan: DAVIDE with Cr 3.32 in the setting of hypotension, Was given fluid bolus and maintenance fluid at 150 ml/hr. Continue holding lisinopril, chlorthalidone. Cr trending down, patient not oliguric anymore. Nephrology following Hospital course: Ms. Patel is a 57 year old female with a history of seizures, bipolar disorder and previous suicide attempts who was admitted for altered mental status after taking Haldol to commit suicide. However she was found to have leukocytosis and hypertension. Her blood pressure was above SBP of 160 and DBP of 100 and she was started on 2 antihypertensive medications before normalization of blood pressure. She had a paradoxical reaction to quetiapine and slept for a long period of time after she is off psychiatric medicines that may be used to help treat her bipolar disorder. Her delirium was due to an unclear etiology. Psychiatry and neurology were consulted. Infectious disease and nephrology were also consulted during the course of hospitalization because as the patient developed acute kidney injury and hypotension requiring IV fluids. The patient was treated on the medical floor with empiric antibiotics but no source of infection was identified. Blood smear was benign with no immature cell forms, neutrophil prominent leukocytosis without left shift. Hematology was consulted and determined her condition did not appear to be a hematologic condition. Gary quinonez remained afebrile and leukocytosis improved. Patient progressed back to baseline. Based on psychiatry recommendations of psych, her delirium was treated with low-dose of high potency antipsychotics, Haldol 0.5 mg 3 times a day as a standing order. May gve Haldol IV if patient is refusing treatment. The patient was voluntarily transferred to for continued inpatient psych treatment. Discharge discussed with: patient - Time Spent with Patient Total time spent providing and/or coordinating discharge services: - Discharge Medications Prescriptions: amLODIPine [Norvasc] 5 mg PO DAILY #30 tablet Haloperidol [Haldol] 0.5 mg PO TID 45 Days tablet levETIRAcetam [Keppra] 500 mg PO DAILY #30 tablet Nystatin POWDER [Nystop] 1 appl TP BID 5 Days #1 bottle Home Medications: Nitroglycerin [Nitrostat] 0.4 mg SL PRN PRN 12/29/17 [History] Omeprazole [PriLOSEC] 40 mg PO DAILY 12/29/17 [History] Acetaminophen [Tylenol] 650 mg PO Q6HR PRN tablet 01/03/18 [Rx] Haloperidol [Haldol] 0.5 mg PO TID 45 Days tablet 01/03/18 [Rx] Nystatin POWDER [Nystop] 1 appl TP BID 5 Days #1 bottle 01/03/18 [Rx] amLODIPine [Norvasc] 5 mg PO DAILY #30 tablet 01/03/18 [Rx] levETIRAcetam [Keppra] 500 mg PO DAILY #30 tablet 01/03/18 [Rx] Allergies/Adverse Reactions: Allergy/AdvReac Type Severity Reaction Status Date / Time No Known Allergies Allergy Verified 12/29/17 09:31 Date of admission: 01/01/18 13:19 Primary care physician: PCP NONE Consults: 12/30/17 11:28 Consult to Psychiatry [CONS] Stat Consulting Provider: Psychiatry Gladys Reason consult: Sitter/1:1 Other Other reason and/or additional details: SI 12/30/17 17:[address] Worker [CONS] Routine Reason for SW Consult: discharge needs, meals on wheels etc 12/31/17 08:53 Consult to Neurology [CONS] Routine Consulting Provider: [facility] Reason for Consult: altered mental status Call Completed: Yes 01/01/18 10:21 Consult to Infectious Diseases [CONS] Routine Consulting Provider: Infectious Disease Gladys Reason for Consult: leukocytosis Call Completed: Yes 01/01/18 12:50 Consult to Oncology Hematology [CONS] Routine Consulting Provider: Rigoberto Angulo Reason for Consult: abnormal labs Call Completed: Yes 01/02/18 08:49 Consult to Nephrology [CONS] Routine Consulting Provider: Kidney Gladys/VIDYA/OLGA/JUAN FRANCISCO Reason for Consult: DAVIDE Call Completed: Yes Discharging clinician: Natanael Man Anticipated date of discharge: 01/03/18 - Constitutional Vitals: Temp Pulse Resp BP Pulse Ox 97.6 F 84 16 140/81 97 01/03/18 11:00 01/03/18 11:00 01/03/18 11:00 01/03/18 11:00 01/03/18 11:00 General appearance: Present: cooperative, no acute distress, obese, answers questions appropriately Exam: Awake, pacing in room - Head Head exam: Present: atraumatic, normocephalic - Eye Eye exam: Present: EOMI, conjuntiva pink, sclera anicteric - ENT ENT exam: Present: mucous membranes moist, normal oropharynx - Neck Neck exam general surgery: Present: supple, trachea midline. Absent: lymphadenopathy - Respiratory Respiratory exam: Present: CTAB. Absent: accessory muscle use, rales, rhonchi, wheezes - Cardiovascular Cardiovascular exam: Present: RRR, +S1, +S2. Absent: diastolic murmur, gallop, rubs, systolic murmur - GI/Abdominal GI/Abdominal exam: Present: normal bowel sounds, soft, no peritoneal signs. Absent: distended, tenderness - Extremities Exam Extremities exam: Present: warm, radial pulses palpable and symmetrical. Absent: calf tenderness, cyanotic, pedal edema - Back Exam Back exam: Present: normal inspection. Absent: paraspinal tenderness, tenderness - Neurological Exam Neurological exam: Present: CN II-XII intact, oriented X3, no focal deficits. Absent: pronater drift, facial droop, speech deficit - Psychiatric Psychiatric exam: Present: flat affect - Expanded Psychiatric Exam Focused psych exam: Present: restlessness - Skin Skin exam: Present: dry, intact - Patient Status Disposition: Transfer Psychiatric Hosp Condition: Fair Functional capacity at discharge: independent ambulation Overall status at discharge: patient is back to baseline - Discharge Instructions Instructions: Acute Kidney Injury (DC), Bipolar Disorder (DC), Sepsis (DC), Chronic Hypertension (DC), Acute Delirium (DC), Leukocytosis (DC), Anxiety (DC) Follow Up With: NONE,PCP [Primary Care Provider] - - Diet and Activity Activity: increase activity as tolerated Diet: advance to your usual diet <Natanael Man - Last Filed: 01/03/18 18:46> Orders not resulted at time of discharge: Pending orders 01/01/18 07:47 Sputum Culture [Culture,Sputum with Gram Stain] [RM] Stat 01/01/18 08:48 Culture,Blood [BC] Routine 01/01/18 15:34 RAHEEM Titer by IFA Routine HIV Qualitative PCR(Detection) Routine Procalcitonin Routine 01/02/18 04:00 Hepatitis Prof.(Routine A,B,C) Routine 01/02/18 11:23 Culture,Blood [BC] Stat - Discharge Diagnosis (1) Leukocytosis Priority: Primary Status: Suspected Qualifiers: Leukocytosis type: leukemoid reaction Qualified Code(s): D72.823 - Leukemoid reaction (2) Suicidal behavior Status: Chronic Qualifiers: Attempted self-injury: with attempted self-injury Qualified Code(s): T14.9 1XA - Suicide attempt, initial encounter (3) Bipolar disorder Status: Chronic Qualifiers: Active/Remission status: remission status unspecified Qualified Code(s): F31.9 - Bipolar disorder, unspecified (4) HTN (hypertension) Status: Chronic Qualifiers: Hypertension type: essential hypertension Qualified Code(s): I10 - Essential (primary) hypertension (5) Morbid obesity with BMI of 40.0-44.9, adult Status: Chronic (6) Delirium due to known physiological condition Status: Acute (7) Seizure disorder Status: Chronic (8) Sepsis Status: Resolved Qualifiers: Sepsis type: sepsis due to unspecified organism Qualified Code(s): A41.9 - Sepsis, unspecified organism (9) DAVIDE (acute kidney injury) Status: Resolved (10) Tobacco abuse Priority: Secondary Status: Chronic Hospital course: Ms. Patel is a 57 year old female - Time Spent with Patient Total time spent providing and/or coordinating discharge services: 37min Date of admission: 01/01/18 13:19 Primary care physician: PCP NONE Consults: 12/30/17 11:28 Consult to Psychiatry [CONS] Stat Consulting Provider: Psychiatry [facility] Reason consult: Sitter/1:1 Other Other reason and/or additional details: SI 12/30/17 17:[address] Worker [CONS] Routine Reason for SW Consult: discharge needs, meals on wheels etc 12/31/17 08:53 Consult to Neurology [CONS] Routine Consulting Provider: [facility] Reason for Consult: altered mental status Call Completed: Yes 01/01/18 10:21 Consult to Infectious Diseases [CONS] Routine Consulting Provider: Infectious Disease Gladys Reason for Consult: leukocytosis Call Completed: Yes 01/01/18 12:50 Consult to Oncology Hematology [CONS] Routine Consulting Provider: Rigoberto Angulo Reason for Consult: abnormal labs Call Completed: Yes 01/02/18 08:49 Consult to Nephrology [CONS] Routine Consulting Provider: Kidney [facility]/VIDYA/OLGA/JUAN FRANCISCO Reason for Consult: DAVIDE Call Completed: Yes - Constitutional Vitals: Temp Pulse Resp BP Pulse Ox 98.6 F 84 16 162/84 98 01/03/18 15:18 01/03/18 15:18 01/03/18 15:18 01/03/18 15:18 01/03/18 15:18 - Attending Attestation I examined this patient and my medical decision-making was reviewed with the Resident Physician on 01/03/18. I agree with the documented findings, disposition and treatment plan as described except to the extent set forth below. Ms Patel has been admitted due to HTN and leukocytosis. Her BP has been better controlled (when she agrees to take meds). BP became very low with Seroquel. She has had persistent leukocytosis and has been seen by ID and heme. At this point it is felt to be leukomoid reaction and will be followed after discharge. She also had acute renal failure which has improved. She is ready for discharge today. Exam Alert Up in room Mucus membranes dry Heart reg No wheeze abd soft Plan D/C to 1[facility] today.
[2018-01-03 15:18] VITALS: BP 162/84
[2018-01-04 16:43] LABS: Hepatitis B Surface Antigen Nonreactive (Nonreactive)
[2018-01-05 03:27] LABS: Hepatitis A Antibody IgM Nonreactive (Nonreactive); Hepatitis B Core IgM Nonreactive (Nonreactive); Hepatitis C Virus Antibody Nonreactive (Nonreactive)
== END 2018-01-03 18:10 | DRG 917 ==
LOC: 2ANU → SUATTDRO 15:46
PROVIDERS: ADMIT Internal Medicine Nephrology; ATTEND Internal Medicine

== ENCOUNTER 2018-01-03 17:15 | Inpatient (IN) ==
[2018-01-03] MEDS ORDERED: Mag Hydrox/Al Hydrox/Simeth 30 ML UDC PO PRN (17:38)
[2018-01-03] MEDS ORDERED: *HR* LORazepam 1 MG TABLET PO PRN (17:38)
[2018-01-03] MEDS ORDERED: Acetaminophen 325 MG TABLET PO PRN (17:38)
[2018-01-03] MEDS ORDERED: MOM Conc 10 ML UD.LIQ PO PRN (17:38)
[2018-01-03] MEDS ORDERED: Haloperidol Lactate 5 MG/ML VIAL IM PRN (17:38)
[2018-01-03] MEDS ORDERED: hydrOXYzine pamoate 25 MG CAPSULE PO PRN (17:38)
[2018-01-03] MEDS ORDERED: *HR* LORazepam 2 MG/ML VIAL IM PRN (17:38)
[2018-01-03] MEDS: traZODone 50 MG TABLET PO PRN (21:12)
[2018-01-03] MEDS: Nystatin POWDER 30 GM BOTTLE TP SCH (22:07)
[2018-01-04] MEDS: levETIRAcetam 250 MG TABLET PO SCH (09:09)
[2018-01-04] MEDS: Aspirin 81 MG TAB.CHEW PO SCH (09:09)
[2018-01-04] MEDS: amLODIPine 5 MG TABLET PO SCH (09:09)
[2018-01-04] MEDS: Nystatin POWDER 30 GM BOTTLE TP SCH ×2 (09:10→20:58)
--- NOTE | 2018-01-04 09:41 | Psychiatry History & Physical ---
Date of Encounter: 01/04/18 Time of Encounter: 09:33 History of Present Illness Patient Stated Chief Complaint: confusion Medicare Admission Attestation: For traditional Medicare patients the provided hospital inpatient services are reasonable and necessary and in the case of services not specified as inpatient-only under 42 CFR 419.22 (n), that they are appropriately provided as inpatient services in accordance 42 CFR 412.3. For Critical Access Hospital the patient may reasonably be expected to be discharged or transferred to a hospital within 96 hours after admission to the Critical Access Hospital. Admitted From: Home Plans for Post Hospital Care: Home History of Present Illness: Ms. Patel is a 57 year old female who was admitted to the medical floor with delirium. Unknown etiology. Thought to be infectious in nature but no source of infection ever found. Client reportedly had an overdose of her Haldol approx two weeks prior to admission in a suicide attempt. Transferred to after medically cleared secondary to this suicide attempt. Last night client was confused. She was wandering into others' rooms. Tried to leave unit through front door. Required a lot of redirection. Today she is still a little confused but much clearer than yesterday. Thinks she was on the medical floor secondary to a cigarette burn on her finger. Denies any recent overdose of medications. Also denies she is prescribed Haldol. Admits to SI approx 6-7 years ago but denies any recent SI. States she is diagnosed with Schizophrenia and that her PCP prescribes her mental health meds. Does not endorse symptoms of Schizophrenia. States her biggest issues are depression and anxiety. Claims she is currently prescribed Prozac, Ativan, and Vistaril by her PCP, that these meds help her, and that she is current on them. Will call [facility] today to get most recent prescriptions. Denies any chronic medical problems and denies having any AOD issues. Lives with . He is the one that brought her to the hospital initially. Will need to get collateral information from him. Past Med Surg Social Fam HX - Past Medical History Medical history: hypertension, seizures - Past Psychiatric History Psychiatric history: Reports: anxiety, depression, prior suicide attempt, schizophrenia, previous psychiatric hospitalization Family psychiatric history: Unknown Family History of Suicide: Unknown - Social History Smoking Status: Current every day smoker Alcohol use: none Drug use: none Medications & Allergies Nitroglycerin [Nitrostat] 0.4 mg SL PRN PRN 12/29/17 [History] Omeprazole [PriLOSEC] 40 mg PO DAILY 12/29/17 [History] Acetaminophen [Tylenol] 650 mg PO Q6HR PRN tablet 01/03/18 [Rx] Haloperidol [Haldol] 0.5 mg PO TID 45 Days tablet 01/03/18 [Rx] Nystatin POWDER [Nystop] 1 appl TP BID 5 Days #1 bottle 01/03/18 [Rx] amLODIPine [Norvasc] 5 mg PO DAILY #30 tablet 01/03/18 [Rx] levETIRAcetam [Keppra] 500 mg PO DAILY #30 tablet 01/03/18 [Rx] PARoxetine HCl [Paroxetine HCl] 10 mg PO DAILY 01/04/18 [History] Allergy/AdvReac Type Severity Reaction Status Date / Time No Known Allergies Allergy Verified 12/29/17 09:31 Review of Systems Constitutional: Denies: fever, chills, weakness, weight change Eyes: Denies: eye pain, vision change Ears, Nose, Throat: Denies: ear pain, throat pain, dental pain, hearing loss, congestion Cardiovascular: Denies: chest pain, palpitations, dyspnea on exertion Respiratory: Denies: cough, dyspnea, wheezes Gastrointestinal: Denies: abdominal pain, nausea, vomiting, diarrhea, constipation Genitourinary female: Denies: urgency, dysuria, frequency, abnormal menses, dyspareunia Musculoskeletal: Denies: joint swelling, joint pain Integumentary: Reports: lesions Neurological: Denies: headache, weakness, numbness, memory loss Endocrine: Denies: fatigue, heat or cold intolerance Hematologic/Lymphatic: Denies: easy bruising, lymphadenopathy Allergic/Immunologic: Denies: urticaria, itchy eyes Exam - HEENT Head exam IM: Present: atraumatic Eye exam IM: Present: EOMI, normal appearance, PERRL ENT exam IM: Present: normal exam - Neurological Neurological exam: Present: CN II-XII intact - Respiratory Respiratory exam IM: Present: CTAB - GI/Abdominal GI/Abdominal exam IM: Present: normal bowel sounds, soft. Absent: tenderness - Extremities Extremities exam IM: Present: full ROM - Skin Skin exam IM: Present: normal color - Constitutional Vitals: Temp Pulse Resp BP Pulse Ox 98.3 F 100 20 139/80 96 01/04/18 09:00 01/04/18 09:00 01/04/18 09:00 01/04/18 09:00 01/04/18 09:00 General appearance: obese - Musculoskeletal Gait: normal Station: relaxed Strength & Tone: normal for patient - Psychiatric Patient Orientation: Yes Person, Yes Time, Yes Place Level of alertness: Alert Behavior: calm, cooperative Psychomotor activity: Normal Eye Contact: Maintains Eye Contact Mood Description: Depressed, Anxious Affect description: congruent with mood Speech Volume: Normal Speech pattern: normal rate, normal rhythm, normal tone, fluent, spontaneous Language & Vocabulary: consistent with education Thought Process: Linear, Goal Oriented Thought Content: No Suicidal ideation, No Homicidal ideation, No Overt delusions Perceptual Disturbances: No Auditory hallucinations, No Visual hallucinations Attention Span Ability: Capable of Focused Attention Memory Description: Immediate Intact, Recent Impaired, Remote Intact Patient Reliability: Questionable Historian Fund of knowledge: Yes abstraction ability, Yes average, Yes aware of current events Intelligence Estimate: Average Judgment: Limited Insight: Partial Assessment and Plan (1) Major depress dis, severe Current visit: Yes Status: Acute Plan: Admit inpatient for safety and stabilization, Close observation, Suicide Precautions per unit protocol, Encourage participation in unit milieu, Group Therapy, Monitor sleep, Monitor appetite Risks, benefits, side effects, alternatives discussed w/pt: Yes Patient agreeable to treatment: Yes Plans for Post Hospital Care: Home Estimated Length of Stay (Days): 4 (2) Altered mental status Current visit: No Status: Acute Plan: Admit inpatient for safety and stabilization, Close observation, Suicide Precautions per unit protocol, Encourage participation in unit milieu, Group Therapy, Monitor sleep, Monitor appetite Risks, benefits, side effects, alternatives discussed w/pt: Yes Patient agreeable to treatment: Yes Plans for Post Hospital Care: Home Estimated Length of Stay (Days): 4 Qualifiers: Altered mental status type: unspecified Qualified Code(s): R41.82 - Altered mental status, unspecified
[2018-01-04] MEDS: Neosporin OINT 15 GM TUBE TP SCH ×3 (12:05→20:59)
[2018-01-04] MEDS: traZODone 50 MG TABLET PO PRN (20:31)
[2018-01-05] MEDS: Aspirin 81 MG TAB.CHEW PO SCH (09:17)
[2018-01-05] MEDS: levETIRAcetam 250 MG TABLET PO SCH (09:17)
[2018-01-05] MEDS: amLODIPine 5 MG TABLET PO SCH (09:17)
[2018-01-05] MEDS: Neosporin OINT 15 GM TUBE TP SCH ×3 (09:21→22:24)
[2018-01-05] MEDS: Nystatin POWDER 30 GM BOTTLE TP SCH ×2 (09:21→22:24)
--- NOTE | 2018-01-05 10:36 | Psychiatry Progress Note ---
Date of Encounter: 01/05/18 Time of Encounter: 09:30 Subjective Interval history: Ms. Patel is a 57 year old female who was admitted to the medical floor with delirium. Unknown etiology. Thought to be infectious in nature but no source of infection ever found. Client reportedly had an overdose of her Haldol approx two weeks prior to admission in a suicide attempt. Transferred to after medically cleared secondary to this suicide attempt. Pt is a 57 yo, , female, who presents for Mood and acute intermittent delirium. Pt noted that she feels she is improving slowly. Pt noted she is optimistic to return home "to go back to work at [employer]. Pt denied any side effects to current medications. Pt noted she felt safe and comfortable on the unit. Pt was in agreement with treatment plan. Pt noted that she is doing pretty good today. Pt noted she slept 8 hours last night. Pt noted her appetite is okay. Pt rated her depression a 3, on a scale of zero to ten with ten being the worst and zero being none. Pt rate her anxiety a 0, on the same scale. Pt denied any Auditory or visual hallucinations. Pt denied any thoughts to harm herself or anyone else. PT was in agreement with treatment plan. Pt noted she continues to feel "much better." Tobacco: Denies any current since admission Alcohol: Denies any current Street: Denies any current Caffeine: Denies 1.Interval hx 2.Continue current medications 3.Review current labs 4.Pt had an opportunity to ask questions and discuss current treatment plan. 5.Supportive therapy was provided 6.Pt encouraged to consider group or individual therapy 7.Pt was in agreement with treatment plan. 8.Pt was educated on the risks benefits and side effects of current medications. 9. Coordinate for D/C tomorrow Review of Systems Constitutional: Denies: fever, chills, weakness, weight change Eyes: Denies: eye pain, vision change Ears, Nose, Throat: Denies: ear pain, throat pain, dental pain, hearing loss, congestion Cardiovascular: Denies: chest pain, palpitations, dyspnea on exertion Respiratory: Denies: cough, dyspnea, wheezes Gastrointestinal: Denies: abdominal pain, nausea, vomiting, diarrhea, constipation Musculoskeletal: Denies: joint swelling, joint pain Neurological: Denies: headache, weakness, numbness, memory loss Results - Vital Signs Vital Signs: Temp Pulse Resp BP Pulse Ox 98.4 F 94 20 150/84 95 01/05/18 09:00 01/05/18 09:00 01/05/18 09:00 01/05/18 09:00 01/05/18 09:00 Assessment and Plan (1) Altered mental status Current visit: No Status: Acute Plan: Continue hospitalization, Close observation, Suicide Precautions per unit protocol, Encourage participation in unit milieu, Group Therapy, Monitor sleep, Monitor appetite Risks, benefits, side effects, alternatives discussed w/pt: Yes Patient agreeable to treatment: Yes Qualifiers: Altered mental status type: unspecified Qualified Code(s): R41.82 - Altered mental status, unspecified (2) Attempted suicide Current visit: No Status: Acute Plan: Continue hospitalization, Close observation, Suicide Precautions per unit protocol, Encourage participation in unit milieu, Group Therapy, Monitor sleep, Monitor appetite Risks, benefits, side effects, alternatives discussed w/pt: Yes Patient agreeable to treatment: Yes (3) Anxiety Current visit: No Status: Acute Plan: Continue hospitalization, Close observation, Suicide Precautions per unit protocol, Encourage participation in unit milieu, Group Therapy, Monitor sleep, Monitor appetite Risks, benefits, side effects, alternatives discussed w/pt: Yes Patient agreeable to treatment: Yes (4) Delirium due to known physiological condition Current visit: No Status: Acute Plan: Continue hospitalization, Close observation, Suicide Precautions per unit protocol, Encourage participation in unit milieu, Group Therapy, Monitor sleep, Monitor appetite Risks, benefits, side effects, alternatives discussed w/pt: Yes Patient agreeable to treatment: Yes (5) Major depress dis, severe Current visit: Yes Status: Acute Plan: Continue hospitalization, Close observation, Suicide Precautions per unit protocol, Encourage participation in unit milieu, Group Therapy, Monitor sleep, Monitor appetite Risks, benefits, side effects, alternatives discussed w/pt: Yes Patient agreeable to treatment: Yes Consult Discharge Plan - Plan Additional Instructions: Plan to Discharge pt home, clear for work, and follow up with out pt mental health tomorrow Referrals: NONE,PCP [Primary Care Provider] - Psychiatry Exam - Constitutional Vitals: Temp Pulse Resp BP Pulse Ox 98.4 F 94 20 150/84 95 01/05/18 09:00 01/05/18 09:00 01/05/18 09:00 01/05/18 09:00 10/29/18 09:00 General appearance: age & developmentally appropriate, well-groomed, well- nourished - Musculoskeletal Gait: normal Station: relaxed Strength & Tone: normal for patient - Psychiatric Patient Orientation: Yes Person, Yes Time, Yes Place Level of alertness: Alert Behavior: calm, cooperative Psychomotor activity: Slowed Eye Contact: Maintains Eye Contact Mood Description: Euthymic/stable Affect description: congruent with mood, full range, flat Speech Volume: Normal Speech pattern: normal rate, normal rhythm, normal tone, fluent, spontaneous Language & Vocabulary: consistent with education Thought Process: Linear, Goal Oriented Thought Content: No Suicidal ideation, No Homicidal ideation, No Overt delusions Perceptual Disturbances: No Auditory hallucinations, No Visual hallucinations Attention Span Ability: Capable of Focused Attention Memory Description: Grossly Intact Patient Reliability: Reliable Historian Fund of knowledge: Yes abstraction ability, Yes aware of current events Intelligence Estimate: Average Judgment: Limited Insight: Partial
[2018-01-06] MEDS: amLODIPine 5 MG TABLET PO SCH (08:43)
[2018-01-06] MEDS: Aspirin 81 MG TAB.CHEW PO SCH (08:43)
[2018-01-06] MEDS: Nystatin POWDER 30 GM BOTTLE TP SCH (08:44)
[2018-01-06] MEDS: Neosporin OINT 15 GM TUBE TP SCH (08:44)
[2018-01-06] MEDS: levETIRAcetam 250 MG TABLET PO SCH (08:44)
[2018-01-06 09:20] VITALS: BP 141/94
--- NOTE | 2018-01-06 09:33 | Discharge Summary ---
Date of Encounter: 01/06/18 Time of Encounter: 08:30 Diagnosis - Discharge Diagnosis (1) Altered mental status Status: Acute Qualifiers: Altered mental status type: unspecified Qualified Code(s): R41.82 - Altered mental status, unspecified (2) Attempted suicide Status: Acute (3) Anxiety Status: Acute (4) Delirium due to known physiological condition Status: Acute (5) Major depress dis, severe Status: Acute Medications - Discharge Medications Prescriptions: Acetaminophen [Tylenol] 650 mg PO Q6HR PRN 7 Days #30 tablet PRN Reason: Mild Pain/Fever amLODIPine [Norvasc] 5 mg PO DAILY #30 tablet Haloperidol [Haldol] 0.5 mg PO TID 45 Days tablet levETIRAcetam [Keppra] 500 mg PO DAILY #30 tablet Nitroglycerin [Nitrostat] 0.4 mg SL PRN PRN 1 Days #1 tab.subl PRN Reason: Chest Pain Nystatin POWDER [Nystop] 1 appl TP BID 5 Days #1 bottle Omeprazole [PriLOSEC] 40 mg PO DAILY 30 Days #30 capsule. PARoxetine HCl [Paroxetine HCl] 10 mg PO DAILY 30 Days #30 tablet Acetaminophen [Tylenol] 650 mg PO Q6HR PRN 7 Days #30 tablet 01/06/18 [Rx] Haloperidol [Haldol] 0.5 mg PO TID 45 Days tablet 01/06/18 [Rx] Nitroglycerin [Nitrostat] 0.4 mg SL PRN PRN 1 Days #1 tab.subl 01/06/18 [Rx] Nystatin POWDER [Nystop] 1 appl TP BID 5 Days #1 bottle 01/06/18 [Rx] Omeprazole [PriLOSEC] 40 mg PO DAILY 30 Days #30 capsule. 01/06/18 [Rx] PARoxetine HCl [Paroxetine HCl] 10 mg PO DAILY 30 Days #30 tablet 01/06/18 [Rx] amLODIPine [Norvasc] 5 mg PO DAILY #30 tablet 01/06/18 [Rx] levETIRAcetam [Keppra] 500 mg PO DAILY #30 tablet 01/06/18 [Rx] Allergy/AdvReac Type Severity Reaction Status Date / Time No Known Allergies Allergy Verified 12/29/17 09:31 Provider Date of admission: 01/03/18 17:15 Primary care physician: PCP NONE Consults: 01/04/18 15:53 Consult to Pastoral Services [CONS] Routine Comment: Discharging clinician: Kaleb Wu Psychiatry Exam - Constitutional Vitals: Temp Pulse Resp BP Pulse Ox 98.2 F 94 18 143/84 95 01/05/18 19:28 01/05/18 09:00 01/05/18 19:28 01/05/18 19:28 01/05/18 09:00 General appearance: age & developmentally appropriate, well-groomed, well- nourished - Musculoskeletal Gait: normal Station: relaxed Strength & Tone: normal for patient - Psychiatric Patient Orientation: Yes Person, Yes Time, Yes Place Level of alertness: Alert Behavior: calm, cooperative Psychomotor activity: Normal Eye Contact: Maintains Eye Contact Mood Description: Euthymic/stable Affect description: congruent with mood, full range Speech Volume: Normal Speech pattern: normal rate, normal rhythm, normal tone, fluent, spontaneous Language & Vocabulary: consistent with education Thought Process: Linear, Goal Oriented Thought Content: No Suicidal ideation, No Homicidal ideation, No Overt delusions Perceptual Disturbances: No Auditory hallucinations, No Visual hallucinations Attention Span Ability: Capable of Focused Attention Memory Description: Grossly Intact Patient Reliability: Reliable Historian Fund of knowledge: Yes abstraction ability, Yes aware of current events Intelligence Estimate: Average Judgment: Limited Insight: Partial Hospital Course Hospital course: Pt is a 57 yo, , female, who presents for Mood and acute intermittent delirium. Pt noted that she feels she is improved. Pt noted she is optimistic to return home "to go back to work at [employer]. Pt denied any side effects to current medications. Pt noted she felt safe and comfortable on the unit. Pt was in agreement with treatment plan. Pt noted that she is doing pretty good today. Pt noted she slept 8 hours last night. Pt noted her appetite is okay. Pt rated her depression a 0, on a scale of zero to ten with ten being the worst and zero being none. Pt rate her anxiety a 0, on the same scale. Pt denied any Auditory or visual hallucinations. Pt denied any thoughts to harm herself or anyone else. PT was in agreement with treatment plan. Pt noted she continues to feel "much better." Patient noted a significant reeducation in her depression, psychosis and anxiety during her stay at [place]. Pt noted that she slowly improved to the point that she was comfortable and safe to D/C home. Pt noted she felt her medications were working well and denied any current side effects. Treatment team encouraged Pt to stay out of bed and try to find activities to do, verbalized understanding. pt reported that she felt safe on the unit and comfortable for D/C home. Pt Denied suicidal/homicidal ideations, denied any problems or concerns with medications or side effects. PT voiced progression towards treatment goals and was offered a copy of updated treatment plan completed during visit today. Denied any immediate needs or concerns. Pt denied any access to guns or weapons Pt throughout her stay on in psych pt felt like her medications were working and felt comfortable being discharged on these medications. Pt was advised to take all medications as prescribed, follow up with all scheduled appointments and abstain from any alcohol or illicit substances. Pt was in agreement. Pt felt safe and comfortable to be discharged to her [facility] Pt was very optimistic about her D/C. Pt felt safe and comfortable for D/C. Pt stated that she was doing "good," today. Pt stated that she slept "about 8 hours," last night. Pt stated that her appetite is "good." Pt stated that she rates her depression a "0," on a scale of 0-10 with 10 being the worst and 0 being none. Pt stated that she rates her anxiety an "0/10," on the same scale. Pt denies any auditory or visual hallucinations. Pt denied any thoughts to harm herself or anyone else. Pt felt safe and comfortable for D/C. The patient was educated primarily by verbal means about her diagnoses and their manifestations in her life. The option for treatment including group individ ual therapy programming was offered to her and the use of medications with all their potential risks, benefits, and side-effects were discussed with the pt at length. Pt was given the opportunity to ask questions and she participated in the treatment and planning process. Pt felt ready and eager to be discharged from the from the [facility] to be dishcarged home. Pt felt she was safe for this disposition. Pt was considered to be able to participate in informed consent and decision-making with respect to medical, legal and financial issues at the time of her discharge from the [facility]. No TD noted, AIMS=0 Tobacco: 1ppd Alcohol: she has been drinking 1 liter of vodka per day for the past [address]: occasional marijuana use Caffeine: Denies 1.Interval hx 2.Continue current medications 3.Review current labs 4.Pt had an opportunity to ask questions and discuss current treatment plan. 5.Supportive therapy was provided 6.Pt encouraged to consider group or individual therapy 7.Pt was in agreement with treatment plan. 8.Pt was educated on the risks benefits and side effects of current medications. 9. take all medications as prescribed 10 abstain from any alcohol or illict substances. 11. follow up with all scheduled appointments. 12. D/C Pt home Time spent discussing smoking cessation with patient: 3 to 10 minutes Does patient wish to continue nicotine replacement upon disc: No - Time Spent with Patient Total time spent providing and/or coordinating discharge services: Greater than 30 minutes Assessment and Plan - Patient/Caregiver Discharge Instructions Activity: resume usual activities as tolerated Diet: regular diet - Follow up Plan Follow up with: [facility] [Other] - 01/08/18 12:15 pm (The above appointment is with Dr. Rakesh Julian primary health care and medication management services.) Overall status at discharge: Stable Disposition: Home, Self-Care Quality - Multiple Antipsychotics Patient discharged on 2 or more antipsychotic medications: No - Justification Documentation of: Other justification (pt not on 3 antipsychotics) Procedures - Procedures Procedures: Medication Management, Crisis Stabilization, Supportive Therapy, Group Therapy, Psychoeducational Therapy
== END 2018-01-06 13:00 | disposition home or self-care (01) | DRG 885 ==
LOC: 1ANU 17:15
PROVIDERS: ADMIT Psychiatry & Neurology Psychiatry; ATTEND Psychiatry & Neurology Psychiatry